=== PATIENT | male | born 1950 | race Caucasian/White ===

== ENCOUNTER 2024-08-05 10:15 | Outpatient (CLI) | payer OTHER, SELFPAY ==
[2024-08-05 10:45] LABS: Add Urine Microscopic? NO; Appearance Urine Clear (Clear); Bilirubin Urine Negative (Negative); Blood Urine Negative (Negative); Color Urine Yellow (Yellow); Glucose Urine UA Negative (Negative); Ketones Urine Negative (Negative); Leukocyte Esterase Ur Negative LEU/UL (Negative); Nitrate Urine Negative (Negative); Protein Urine Negative (Negative); Specific Grav Ur 1.021 (1.001-1.035); pH Urine 7.5 (5.0-9.0)
[2024-08-05 10:56] LABS: Alanine Aminotransferase 19 U/L (6-50); Alkaline Phosphatase 70 U/L (38-126); Anion Gap 3 mmol/L (4-12); Aspartate Amino Transferase 25 U/L (17-59); Blood Urea Nitrogen 17 mg/dL (9-20); Calcium 9.1 mg/dL (8.4-10.2); Carbon Dioxide 35 mmol/L (22-30); Chloride 102 mmol/L (98-107); Cholesterol 218 mg/dL (0-200); Estimated Glomerular Filt Rate > 60; Glucose 99 mg/dL (65-110); HDL Direct 52 mg/dL; Potassium 4.1 mmol/L (3.4-5.0); Sodium 140 mmol/L (137-145); Triglycerides 277 mg/dL (<150)
[2024-08-05 11:07] LABS: LDL Cholesterol Direct 106 mg/dL
--- OUTSIDE RECORDS SUMMARY | 2024-08-05 11:35 | XMS_ITS | Encounter Summary ---
Author Organization [facility] Address [address] [facility] [place] [address] Care Team Providers Care Jack Setter Name Role Phone Unavailable Primary Care Provider Unavailabl e Encounter Details Date Type Department Care Team (Late st Contact Info) Description 06/20/2023 Lab Requisition [facility] - DermPath Lab [address] [place] [id number] Ayden Bright MD [facility] DERMATOLOGY [address] [place] [phone] Neoplasm of uncertain behavior of skin Social History Tobacco Use Types Packs/Day Years Used Date Smoking Tobacco: Never Assessed Sex and Gender Information Value Date Recorded Sex Assigned at Not on file Legal Sex Male 9:20 AM CDT Gender Identity Not on file Sexual Orientation Not on file documented as of this encounter Plan of Treatment Not on file documented as of this encounter Procedures Procedure Name Priority Date/Time Associated Diagnosis Comments DERMATOPATHOLOGY Routine 06/20/2023 12:0 0 AM EMBLEM MAKER Neoplasm of uncertain behavior of skin documented in this encounter Results * DERMATOPATHOLOGY (06/20/2023 12:00 AM EMBLEM MAKER) Case Report Dermatopathology Report Case: [id number] Authorizing Provider: Ayden Bright MD Collected: 06/20/2023 12:00 AM Ordering Location: [facility] Physician [facility] - Received: 06/21/2023 12:14 PM DermPath Lab Pathologist: Princess Reyes MD Specimen: Skin, right thigh 4 3:41 PM CDT DERMATOPATHOLOGY LABORATORY Final Diagnosis Specimen A. SKIN, right thigh: HYPERKERATOSIS, PAPILLOMATOSIS, ACANTHOSIS, AND HYPERGRANULOSIS; SUPERFICIAL PORTIONS OF (B07.8) (see microscopic description and comment) 3:41 PM T DERMATOPATHOLOGY LABORATORY Clinical History Seborrheic Keratosis vs Squamous Cell Carcinoma 3:41 PM T DERMATOPATHOLOGY LABORATORY Gross Description Specimen A: Received is one formalin filled container labeled with the patient's name and designated right thigh. The specimen consists of a shave biopsy measuring 7x5x2 mm. Jar 0. 3:41 PM T DERMATOPATHOLOGY LABORATORY Microscopic Description Specimen A. SKIN, right thigh: Sections are predominantly composed of hyperkeratosis with focal parakeratosis, and superficial portions of epidermis with papillomatosis and hypergranulosis. The lesion is broadly transected at the level of the epidermis. Additional deeper sections were obtained and reviewed. COMMENT: The overall histologic features are consistent with superficial portions of a benign verrucous keratosis; however, given the superficial nature of the biopsy specimen, a deeper process cannot be excluded. As this lesion is broadly present at the margins of the specimen, clinicopathological correlation is recommended as to the nature of the remaining lesion. 3:41 PM T DERMATOPATHOLOGY LABORATORY Disclaimer An external and internal positive and negative controls are appropriate for the histochemical, immunohistochemical and immunofluorescence stain(s) in this case (if any), except where stated explicitly. The performance characteristics of the stain(s) cited in this report were developed and its performance characteristic determined by the Dermatopathology Laboratory at [facility], directed by Dr. Kike Oswald. These tests need not be, and therefore are not, approved by the [place] Food and Drug Administration. The tests are used for clinical purposes. Billing Codes Specimen Charges Stain Charges 84671 1 3:41 PM CDT DERMATOPATHOLOGY LABORATORY Embedded Images 3:41 PM T DERMATOPATHOLOGY LABORATORY Pathology/Cytolog y TISSUE SPECIMEN FROM SKIN / Unknown 06/20/2023 06/21/2023 12:14 PM EMBLEM MAKER Ayden Bright MD LAB - PATHOLOGY/CYTOLOGY ORDLaila AVENDAÑO Final Result DERMATOPATHOLOGY LABORATORY [facility] - Department of Dermatology [facility] Medicine [address] [place] [address], [address] [phone] documented in this encounter Visit Diagnoses Diagnosis Neoplasm of uncertain behavior of skin documented in this encounter
--- OUTSIDE RECORDS SUMMARY | 2024-08-05 11:35 | XMS_ITS | Encounter Summary ---
Author Organization [facility] Address [address] [place] [address] Care Team Providers Care Architect Naval Name Role Phone Bernard Jackman MD Primary Care Provid er Reason for Referral * Diagnostic Imaging (Routine) - Closed Specialty Diagnoses / Procedures Referred By Vanesa t Referred To Contact Diagnoses Chronic cough Dysphagia, oropharyngeal phase Procedures FL Upper GI Series, Single Contrast Alex Hernandez MD [address] [facility] [address] [place] [address] Phone: tel: fax: [address] [phone] Referral ID Status Reason Start Date Expiration Date Visits Re quested Visits Authorized [id number] Closed 08/03/2024 09/02/2025 1 1 Reason for Visit * Diagnostic Imaging (Routine) - Closed Specialty Diagnoses / Procedures Referred By Contconnor t Referred To Contact Diagnoses Chronic cough Dysphagia, oropharyngeal phase Procedures FL Upper GI Series, Single Contrast Alex Hernandez MD [address] [facility] [address] [place] [address] Phone: tel: fax: [address] [phone] Referral ID Status Reason Start Date Expiration Date Visits Re quested Visits Authorized [id number] Closed 08/03/2024 09/02/2025 1 1 Encounter Details Date Type Department Care Team (Latest Contact Info) Description 08/05/2024 8:31 AM CDT Hospital Encounter [facility] Diagnostic Imaging [address] [place] [id number] Chronic cough; Dysphagia, oropharyngeal phase Social History Tobacco Use Types Packs/Day Years Used Date Smoking Tobacco: Never Smokeless Tobacco: Never Alcohol Use Standard Drinks/Week Comments Yes 0 (1 standard drink = 0.6 oz pur e alcohol) SOCIAL AUDIT-C Answer Date Recorded Q1: How often do you have a drink containing alcohol? 4 or more times a week 05/18/2022 Q2: How many drinks containi ng alcohol do you have on a typical day when you are drinking? 1 or 2 Q3: How often do you have si x or more drinks on one occasion? Never 05/18/2022 PHQ-2 Answer Date Recorded PHQ-2 Total Score (If total score is 3 or more points, staff should administer the PHQ-9) 0 03/31/2024 Personal Safety Answer Date Recorded Have you ever been in or are you currently in a harmful physical or emotional relationship or is someone making you feel afraid or unsafe? Denies 10/02/2022 Sex and Gender Information Value Date Recorded Sex Assigned at Not on file Legal Sex Male 5:55 AM ARCHITECTURE DEPARTMENT CHAIR Gender Identity Male 02/18/2022 7:25 PM ARCHITECTURE DEPARTMENT CHAIR Sexual Orientation Not on file documented as of this encounter Plan of Treatment Not on file documented as of this encounter Procedures Procedure Name Priority Date/Time Associated Diagnosis Comments FL UPPER GI SERIES, SINGLE CONTRAST Schedule Routine, Read Routine (OP Routine) 08/05/2024 9:24 AM CDT Chronic cough Dysphagia, oropharyngeal phase documented in this encounter Results * FL Upper GI Series, Single Contrast (08/05/2024 9:24 AM CDT) Anatomical Region Laterality Modality Body N/A Computed Radiogr aphy, Computed Radiography 08/05/2024 9:39 AM CDT Narrative 08/05/2024 9:48 AM CDT EXAM DESCRIPTION: FLUOROSCOPIC ESOPHAGRAM, DOUBLE CONTRAST REASON FOR STUDY: Patient provides history of chronic cough since episode of pneumonia as a teenager (and maintained on reflux medications). Patient reports upper endoscopy approximately 10 years ago with demonstration of Schatzki's ring and remote history of prosthetic aortic valve replacement. COMPARISON: Relevant portions of two-view chest radiograph 03/31/2024; relevant portions of CT chest with contrast 02/26/2023; relevant portions of CT head without contrast 10/02/2022; relevant portions of ultrasound thyroid 04/11/2021. RADIATION DOSE: Dose: 7223.46 uGym2 Dose Area Product (DAP) TECHNIQUE: Patient ingested effervescent granules followed by thick and thin barium. FINDINGS: 12.5 mm Barium Tablet: No significant delay in transit. ESOPHAGEAL MOTILITY: Variable delay in contrast transit of the distal esophagus with distal esophageal tertiary spasm and distal esophageal intraesophageal reflux. Additionally, multiple episodes of robust flash intraesophageal reflux of the mid-upper esophagus in upright position. Variable retention of contrast media with variable intraesophageal reflux in supine position. ESOPHAGEAL MUCOSA: Fluoroscopically unremarkable to include no demonstration of ulceration or intrinsic or extrinsic masses. No fluoroscopic demonstration of gastroesophageal reflux. GASTRO-ESOPHAGEAL JUNCTION: Small sliding hiatal hernia with Schatzki B ring within 13-20 mm luminal diameter range. STOMACH: Visualized portion grossly unremarkable. NON-GI TRACT STRUCTURES: Postsurgical changes pursuant to prosthetic aortic valve replacement. OTHER: No other significant finding. IMPRESSION: 1. Small sliding hiatal hernia with Schatzki B ring within 13-20 mm luminal diameter range. 2. Variable delay in contrast transit of the distal esophagus with distal esophageal tertiary spasm and distal esophageal intraesophageal reflux. 3. Additionally, multiple episodes of robust flash intraesophageal reflux of the mid-upper esophagus in upright position. 4. Variable retention of contrast media with variable intraesophageal reflux in supine position. THIS IS AN ELECTRONICALLY VERIFIED FINAL REPORT 08/05/2024 9:48 AM - Electronically signed by Christofer Hauser M.D. LORA: LORA Report ID: [id number] Reading Location: [id number] Procedure Note Christofer Hauser MD - 08/05/2024 EXAM DESCRIPTION: FLUOROSCOPIC ESOPHAGRAM, DOUBLE CONTRAST REASON FOR STUDY: Patient provides history of chronic cough sinceepisode of pneumonia as a teenager (and maintained on reflux medications). Patient reports upper endoscopy approximately 10 years ago with demonstration of Schatzki's ring and remote history of prosthetic aortic valve replacement. COMPARISON: Relevant portions of two-view chest radiograph 03/31/2024; relevant portions of CT chest with contrast 02/26/2023; relevant portionsof CT head without contrast 10/02/2022; relevant portions of ultrasoundthyroid 04/11/2021. RADIATION DOSE: Dose: 7223.46 uGym2 Dose Area Product (DAP) TECHNIQUE: Patient ingested effervescent granules followed by thick andthin barium. FINDINGS: 12.5 mm Barium Tablet: No significant delay in transit. ESOPHAGEAL MOTILITY: Variable delay in contrast transit of the distal esophagus with distal esophageal tertiary spasm and distal esophageal intraesophageal reflux. Additionally, multiple episodes of robust flash intraesophageal reflux of the mid-upper esophagus in upright position. Variable retention of contrast media with variable intraesophageal refluxin supine position. ESOPHAGEAL MUCOSA: Fluoroscopically unremarkable to include nodemonstration of ulceration or intrinsic or extrinsic masses. No fluoroscopicdemonstration of gastroesophageal reflux. GASTRO-ESOPHAGEAL JUNCTION: Small sliding hiatal hernia with Schatzki Bring within 13-20 mm luminal diameter range. STOMACH: Visualized portion grossly unremarkable. NON-GI TRACT STRUCTURES: Postsurgical changes pursuant to prostheticaortic valve replacement. OTHER: No other significant finding. IMPRESSION: 1. Small sliding hiatal hernia with Schatzki B ring within 13-20 mmluminal diameter range. 2. Variable delay in contrast transit of the distal esophagus withdistal esophageal tertiary spasm and distal esophageal intraesophageal reflux. 3. Additionally, multiple episodes of robust flash intraesophagealreflux of the mid-upper esophagus in upright position. 4. Variable retention of contrast media with variable intraesophagealreflux in supine position. THIS IS AN ELECTRONICALLY VERIFIED FINAL REPORT 08/05/2024 9:48 AM - Electronically signed by Christofer Hauser M.D. LORA: LORA Report ID: [id number] Reading Location: [id number] Alex Hernandez MD IMG FLUOROSCOPY PROCEDURES Fi nal Result documented in this encounter Visit Diagnoses Diagnosis Chronic cough Cough Dysphagia, oropharyngeal phase documented in this encounter Administered Medications Inactive Administered Medications - up to 3 most recent administrations Medication Order MAR Action Action Date Dose Rate Site barium sulfate (E-Z DISK) 700 mg tablet 700 mg 700 mg, oral, Once in imaging, contrast, Starting on Sat08/05/24 at 0917, For 1 dose Contrast Given 08/05/2024 9:22 AM CDT 700 mg barium sulfate (E-Z-HD) 98 % suspension 50 mL 50 mL, oral, Once in imaging, contrast, Starting on Sat08/05/24 at 0916, For 1 dose Contrast Given 08/05/2024 9:22 AM CDT 50 mL barium sulfate (E-Z-PAQUE) 96 % (w/w) suspension 1 Bottle 1 Bottle, oral, Once in imaging, contrast, Starting on Sat08/05/24 at 0917, For 1 dose Contrast Given 08/05/2024 9:22 AM CDT 1 Bottle sod bicarbonate-citric acid-simethicone (E-Z GAS) (EZ-GAS II) effervescent granules 1 packet 1 packet, oral, Once in imaging, contrast, Starting on Sat08/05/24 at 0917, For 1 dose Given 08/05/2024 9:21 AM CDT 1 packet documented in this encounter Care Teams Architect Naval Relationship Specialty Start Date End Date Bernard Jackman MD [address] [place] [id number] PCP - General 12/06/18 documented as of this encounter
--- OUTSIDE RECORDS SUMMARY | 2024-08-05 11:35 | XMS_ITS | Encounter Summary ---
Author Organization [facility] Address [address] [facility] [place] [address] Care Team Providers Care Police Detention Attendant Name Role Phone Unavailable Primary Care Provider Unavailabl e Encounter Details Date Type Department Care Team (Late st Contact Info) Description 10/09/2019 Lab Requisition [facility] DermPath Lab [address] [facility] [place] [address] Skylar Wright DO [address] [facility] [address] [place] [address] Social History Tobacco Use Types Packs/Day Years [...] Priority Date/Time Associated Diagnosis Comments DERMATOPATHOLOGY Routine 10/08/2019 12:0 0 AM CDT documented in this encounter Results * DERMATOPATHOLOGY (10/08/2019 12:00 AM CDT) Case Report Dermatopathology Report Case: [id number] Authorizing Provider: Skylar Wright DO Collected: 10/08/2019 12:00 AM Ordering Location: [facility] DermPath Lab Received: 10/09/2019 09:26 AM Pathologist: Kenia Salguero MD Specimens: A) - Skin, left anterior LE B) - Skin, back 0 5:50 PM CDT DERMATOPATHOLOGY LABORATORY Final Diagnosis Specimen A. SKIN, left anterior LE: LICHEN PLANUS-LIKE KERATOSIS (BENIGN LICHENOID KERATOSIS) (L82.1) Specimen B. 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 The specimen consists of a shave biopsy measuring 7x6x1 mm. Jar 0. Specimen B: Received is one formalin filled container labeled with the patient's name and designated back. The specimen consists of a shave biopsy measuring 00n93m5 mm. Jar 0. 0 5:50 PM CDT DERMATOPATHOLOGY LABORATORY Microscopic Description Specimen A. SKIN, left anterior LE: The epidermis is mildly acanthotic. There is a lichenoid infiltrate with vacuolar changes of basilar keratinocytes and scattered necrotic keratinocytes. Specimen B. SKIN, back: Sections show compact orthokeratosis with acanthosis composed of slightly larger keratinocytes with basal layer hyperpigmentation. The epidermis is mildly acanthotic. There is a lichenoid infiltrate with vacuolar changes of basilar keratinocytes and scattered necrotic keratinocytes. 0 5:50 PM CDT DERMATOPATHOLOGY LABORATORY Disclaimer An external and internal positive and negative controls are appropriate for the histochemical, immunohistochemical and immunofluorescence stain(s) in this case (if any), except where stated explicitly. The performance characteristics of the stain(s) cited in this report were developed and its performance characteristic determined by the Dermatopathology Laboratory at [facility], directed by Dr. Kike Oswald. These tests need not be, and therefore are not, approved by the [place] Food and Drug Administration. The tests are used for clinical purposes. Billing Codes Specimen Charges Stain Charges 53088 63957 1 1 0 5:50 PM CDT DERMATOPATHOLOGY LABORATORY Embedded Images 0 5:50 PM CDT DERMATOPATHOLOGY LABORATORY Pathology/Cytology TISSUE SPECIMEN FROM SKIN / Unknown 10/08/2019 10/09/2019 9:26 AM CDT Miscellaneous samples (specimen) TISSUE SPECIMEN FROM SKIN / Unknown 10/08/2019 10/09/2019 9:26 AM CDT us Skylar Wright DO LAB - PATHOLOGY/CYTOLOGY ORDERABLES Final Result DERMATOPATHOLOGY LABORATORY [facility] - Department of Dermatology [facility] [address] [place] [address] documented in this encounter Visit Diagnoses Not on filedocumented in this encounter
--- OUTSIDE RECORDS SUMMARY | 2024-08-05 11:35 | XMS_ITS | Encounter Summary ---
Author Organization [facility] Care Team Providers Care Pharmacist Aide Name Role Phone Miscellaneous, Not In File Primary Care Provider Unavailable Unknown, Notinfile Primary Care Provider Unavail Bernard Choi MD Primary Care Provid er Unknown, Notinfile Primary Care Provider Unavail Bernard Choi MD Primary Care Provid er Bernard Jackman MD Primary Care Provid er Edyta Saleh LPN Unavailable [phone] Encounter Details Date Type Department Care Team (Latest Contact Info) Description 02/07/2017 Orders Only [facility] CLINCONV ProviderRyan MD [address] [place] [id number] Social History Tobacco Use Types Packs/Day Years Used Date Smoking Tobacco: Never Sex and Gender Information Value Date Recorded Sex Assigned at Not on file Legal Sex Male 5:55 AM BOTTLE FEEDER Gender Identity Male 02/18/2022 7:25 PM BOTTLE FEEDER Sexual Orientation Not on file documented as of this encounter Plan of Treatment Not on file documented as of this encounter Procedures Procedure Name Priority Date/Time Associated Diagnosis Comments PROCEDURE - RESULT 02/07/2017 12 :00 AM CDT SCAN - PATHOLOGY 02/07/2017 12:0 0 AM CDT documented in this encounter Results * PROCEDURE - RESULT (02/07/2017 12:00 AM CDT) Narrative 02/07/2017 12:00 AM CDT Ordered by an unspecified provider. Historical Provider Final Res ult * SCAN - PATHOLOGY (02/07/2017 12:00 AM CDT) Narrative 02/07/2017 12:00 AM CDT Ordered by an unspecified provider. Historical Provider Final Res ult documented in this encounter Visit Diagnoses Not on filedocumented in this encounter Additional Health Concerns Infection Onset Date Last Indicated Resolved Time COVID: Suspected 03/07/2021 03/07/2021 03/07/2021 9:43 AM BOTTLE FEEDER COVID: Suspected 03/07/2021 03/07/2021 03/07/2021 8:41 PM BOTTLE FEEDER COVID: Suspected 04/04/2023 04/04/2023 04/04/2023 6:43 PM BOTTLE FEEDER COVID: Suspected 04/04/2023 04/04/2023 04/04/2023 10:36 PM BOTTLE FEEDER documented as of this encounter Care Teams Pharmacist Aide Relationship Specialty Start Date End Date Miscellaneous, Not In File PCP - General 07/13/16 Unknown, Notinfile PCP - General 07/05/17 07/18/17 Bernard Jackman MD [address] [place], [place] [id number] PCP - General 07/19/17 07/19/17 Unknown, Notinfile PCP - General 07/20/17 07/23/17 Bernard Jackman MD [address] [place], [place] [id number] PCP - General 07/24/17 12/05/18 Bernard Jackman MD [address] [place], [place] [id number] PCP - General 12/06/18 Edyta Saleh, CENTRIFUGE SEPARATOR TENDER [address] [place] [address] Credit Administration Manager 07/20/20 07/20/20 documented as of this encounter
--- OUTSIDE RECORDS SUMMARY | 2024-08-05 11:35 | XMS_ITS | Encounter Summary ---
Author Organization [facility] Address [address] [place] [address] Care Team Providers Care Dog Bather Name Role Phone Unavailable Primary Care Provider Unavailabl e Encounter Details Date Type Department Care Team (Late st Contact Info) Description 12/20/2022 Lab Requisition [facility] - DermPath Lab [address] [place] [address] Shyla Uribe PA-C [address] [place] [address] Neoplasm of uncertain behavior of skin [...] Priority Date/Time Associated Diagnosis Comments DERMATOPATHOLOGY Routine 12/20/2022 12:0 0 AM CDT Neoplasm of uncertain behavior of skin documented in this encounter Results * DERMATOPATHOLOGY (12/20/2022 12:00 AM CDT) Case Report Dermatopathology Report Case: [id number] Authorizing Provider: Shyla Uribe PA-C Collected: 12/20/2022 12:00 AM Ordering Location: [facility] DermPath Lab Received: 12/24/2022 08:01 AM Pathologist: Princess Reyes MD Specimens: A) - Skin, right chest B) - Skin, left foot 4:12 PM CDT DERMATOPATHOLOGY LABORATORY Final Diagnosis Specimen A. 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 SKIN, left foot: COMPOUND MELANOCYTIC NEVUS, OF ACRAL SKIN (D22.72) (see microscopic description and comment) 3 4:12 PM [facility] DERMATOPATHOLOGY LABORATORY Clinical History A: Basal Cell Carcinoma B: Atypical Nevus 3 4:12 PM [facility] DERMATOPATHOLOGY LABORATORY Gross Description Specimen A: Received is one formalin filled container labeled with the patient's name and designated right chest. The specimen consists of a shave biopsy measuring 8x9x1 mm. Jar 0. Specimen B: Received is one formalin filled container labeled with the patient's name and designated left foot. The specimen consists of a shave biopsy measuring 7x5x2 mm. Jar 0. 3 4:12 PM [facility] DERMATOPATHOLOGY LABORATORY Microscopic Description Specimen A. SKIN, right chest: There is acanthosis of the epidermis consisting of uniform cells with pale cytoplasm, a diminished granular layer and overlying parakeratosis with neutrophils. Specimen B. SKIN, left foot: Sections show acral type skin with collections of melanocytes at the dermal-epidermal junction that are forming fairly well-defined th ques. Melanocytes are also present in the upper dermis. Lesional cells are highlighted by MART-1/MelanA immunostain. This lesion is present at the margin of the specimen. COMMENT: If this specimen is sampled from a larger lesion, these findings may not be order entry representative of the entire lesion. Clinicopathologic correlation is recommended. 3 4:12 PM [facility] DERMATOPATHOLOGY LABORATORY Disclaimer An external and internal positive and negative controls are appropriate for the histochemical, immunohistochemical and immunofluorescence stain(s) in this case (if any), except where stated explicitly. The performance characteristics of the stain(s) cited in this report were developed and its performance characteristic determined by the Dermatopathology Laboratory at [facility], directed by Dr. Kike Oswald. These tests need not be, and therefore are not, approved by the [place] Food and Drug Administration. The tests are used for clinical purposes. Billing Codes Specimen Charges Stain Charges 34984 14191 1 1 34552 1 3 4:12 PM T DERMATOPATHOLOGY LABORATORY Embedded Images 4:12 PM CDT DERMATOPATHOLOGY LABORATORY Pathology/Cytology TISSUE SPECIMEN FROM SKIN / Unknown 12/20/2022 12/24/2022 8:01 AM CDT Miscellaneous samples (specimen) TISSUE SPECIMEN FROM SKIN / Unknown 12/20/2022 12/24/2022 8:01 AM CDT Shyla Uribe PA-C LAB - PATHOLOGY/CYTOLOGY ORDE JAROCHO Final Result DERMATOPATHOLOGY LABORATORY [facility] - Department of Dermatology [facility] [address] [place] [address], [address] [phone] documented in this encounter Visit Diagnoses Diagnosis Neoplasm of uncertain behavior of skin documented in this encounter
--- OUTSIDE RECORDS SUMMARY | 2024-08-05 11:35 | XMS_ITS | Clinical Summary ---
Author Organization [facility] Address [address] [place] [address] Care Team Providers Care Surgeon Chief Name Role Phone Bernard Jackman MD Primary Care Provid er Allergies Active Allergy Reactions Criticality Noted Date Comments Lisinopril Cough High 07/18/2020 cough Medications folic acid/multivit-m in/lutein (CENTRUM SILVER ORAL) Take 1 tablet by mouth every morning Active cholecalciferol , vitamin D3, (VITAMIN D3 ORAL) Take 2 tablets by mouth every morning Active famotidine (PEPCID) 20 mg tabletIndicatio ns:Laryngophary ngeal reflux (LPR) Take 1 tablet (20 mg total) by mouth nightly 90 tablet 1 3 Active hyoscyamine (Oscimin SL) 0.125 mg SL tablet Take 1 tablet (0.125 mg total) by mouth every 6 (six) hours as needed for cramping 160 tablet 3 3 Active cetirizine (ZyrTEC) 10 mg tabletIndicatio ns:Seasonal allergic rhinitis due to pollen TAKE 1 TABLET EVERY MORNING 90 tablet [address] (PROTONIX) 40 mg EC tabletIndicatio ns:Laryngophary ngeal reflux (LPR) Take 1 tablet (40 mg total) by mouth 2 (two) times a day before breakfast and dinner 180 tablet 1 4 Active rOPINIRole (REQUIP) 1 mg tabletIndicatio ns:PLMD (periodic limb movement disorder) Take 1 tablet (1 mg total) by mouth nightly 90 tablet 2 4 Active simvastatin (ZOCOR) 20 mg tablet Take 1 tablet (20 mg total) by mouth daily 90 tablet 3 4 Active carvediloL (Coreg) 12.5 mg tablet Take 1 tablet (12.5 mg total) by mouth 2 (two) times a day 180 tablet 3 4 Active mv-mn/lutein/ze ax/bilber/hb277 (MACULAR HEALTH FORMULA ORAL) Take by mouth Ac tive benzonatate (TESSALON) 100 mg capsuleIndicati ons:Cough Take 1 capsule (100 mg total) by mouth 3 (three) times a day as needed for cough 42 capsule 4 Active methylPREDNISol one (MEDROL DOSEPACK) 4 mg DosepackIndicat ions:Chronic cough Take as directed on package. 21 tablet 4 Active fluticasone propionate (FLONASE) 50 mcg/actuation nasal sprayIndication s:Chronic cough Administer 2 sprays into each nostril daily 1 each 4 Active FLUoxetine (PROzac) 20 mg tablet Take 1 tablet (20 mg total) by mouth daily 90 tablet 3 4 Active losartan (COZAAR) 25 mg tablet Take 1 tablet (25 mg total) by mouth daily 90 tablet 3 5 Active tadalafiL (CIALIS) 20 mg tablet Take 1 tablet (20 mg total) by mouth daily as needed for erectile dysfunction 12 tablet 11 5 05/21/19 26 Active Active Problems Problem Noted Date Diagnosed Date Bicuspid aortic valve 02/25/2024 Arthralgia of shoulder 04/18/2023 Esophageal reflux 04/18/2023 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 Terrell. Patient instructed to have PSA drawn approximately 6 weeks post-op. Order for PSA placed. He was instructed to get this drawn a few days before his 6 week f/u with Dr. Terrell. Patient took prophylactic antibiotic prior to today's appointment Assessment: Urine appears dark red and patient c/o fatigue and weakness. Contacted Dr. Terrell to report these findings. He suggested flushing catheter and if urine clears up, can remove browne. Used approximate 500mL to irrigate bladder. Urine turned light pink and no clots noted. Browne catheter was removed. CBC was ordered to assess hgb. Patient denies SOB, chest pain, leg pain Incision(s): clean, dry, no redness or swelling and edges approximate Catheter removed, balloon intact No complications Instructions: Activity restrictions and kegel exercises reviewed, pt to schedule an appt with the surgeon approx 6 weeks post op and pt to call with fever, pain, or if unable to urinate within 6 hours Penile rehab information discussed with the patient He was given a script for Cialis 5mg, per our policy. He denies being on any nitrate containing medications All questions from patient and answered. Dr. Terrell and KEDAR Cardenas contacted via [employer] to scheduled post op follow up appointment. PLMD (periodic limb movement disorder) Assessment & Plan (05/25/2024 8:47 AM ELECTRICAL PROSPECTING SUPERVISOR): Patient will continue with Requip 1 mg p.o. at bedtime. Assessment & Plan (04/25/2023 11:28 AM ELECTRICAL PROSPECTING SUPERVISOR): PLMS are under control with Requip 1 mg at bedtime. Assessment & Plan (04/19/2022 12:03 PM ELECTRICAL PROSPECTING SUPERVISOR): Patient will continue with Requip 1 mg p.o. at bedtime. Assessment & Plan (02/19/2022 12:50 PM ELECTRICAL PROSPECTING SUPERVISOR): Patient will continue with Requip 1 mg p.o. at bedtime. Assessment & Plan (08/07/2021 9:58 AM CDT): Patient will continue with Requip 1 mg p.o. at bedtime. I have reordered the medication Assessment & Plan (08/01/2020 11:27 AM CDT): The patient will continue with Requip 1 mg p.o. at bedtime to treat periodic limb movement disorder. The patient denied need for prescription at this time. He states that this medication regimen is working well. Malignant neoplasm of prostate 07/26/2020 Prostate cancer (RALP 07/18/20) 06/20/2020 Elevated PSA 05/24/2020 S/P ascending aortic aneurysm repair 07/18/2018 Hypertension 07/13/2016 History of aortic valve replacement 07/01/2015 Surgical follow-up care 04/13/2014 Obstructive sleep apnea syndrome 10/10/2012 Assessment & Plan (05/25/2024 8:47 AM ELECTRICAL PROSPECTING SUPERVISOR): Patient will continue with CPAP therapy at 6-20 cm water pressure. I have sent an order for the patient to receive the correct hose. The patient does have a Angelia machine a not a ResMed. Patient's DME is [employer]. Assessment & Plan (04/25/2023 11:28 AM ELECTRICAL PROSPECTING SUPERVISOR): The patient continues to benefit from the auto titrating CPAP unit with a range of 6-20 cm water pressure for ongoing symptoms of DELFINA. His DME supplier is [employer]. He will follow up here in 1 year. Assessment & Plan (04/19/2022 12:03 PM ELECTRICAL PROSPECTING SUPERVISOR): Patient will continue with CPAP therapy at 6-20 cm water pressure. Patient's DME is [employer]. Assessment & Plan (02/19/2022 12:51 PM ELECTRICAL PROSPECTING SUPERVISOR): Patient will continue with CPAP therapy at 12 cm water pressure. Patient's DME is [employer]. Assessment & Plan (2021 11:11 AM CDT): Patient will continue with CPAP therapy at 7 cm water pressure. Patient has a CPAP machine registered for the recall. I have also ordered the patient a nocturnal polysomnogram to recertify for CPAP therapy. Patient is agreeable. Assessment & Plan (08/07/2021 9:58 AM CDT): Patient will continue with CPAP therapy at 7 cm water pressure. Patient denied need for supplies. I have ordered the patient a new CPAP machine set at 7 cm water pressure with heated humidity and a full set of supplies. [employer]. The patient and I also discussed the possible need for a nocturnal polysomnogram to recertify for CPAP therapy due to insurance requirements. Patient is agreeable if it is required by insurance. Patient also has a CPAP machine has been registered on the recall list. Patient was reminded to examine CPAP machine prior to use for debris. Assessment & Plan (08/01/2020 11:27 AM CDT): The patient will continue with CPAP therapy at 7 cm water pressure to treat obstructive sleep apnea. The patient did receive an order for new supplies. The DME company is [employer]. The patient is benefitting from CPAP therapy. Hyperlipidemia 10/10/2012 Aortic valve stenosis 04/18/2012 Cough 12/05/2011 Left ventricular hypertrophy 10/16/2011 Resolved Problems Problem Noted Date Diagnosed Date Resolved Date Undiagnosed cardiac murmurs 04/18/2023 02/25/2024 Impacted cerumen, right ear [H61.21 (ICD-10-CM)] 08/28/2022 08/28/2022 Encounters Date Type Department Care Team Description 08/05/2024 8:31 AM CDT Hospital Encounter [facility] Diagnostic Imaging [address] [place] [address] Chronic cough; Dysphagia, oropharyngeal phase 07/31/2024 12:00 PM CDT Lab [facility] Lab [address] [place] [address] 05/26/2024 9:20 AM ELECTRICAL PROSPECTING SUPERVISOR Office Visit [facility] [address] [place] [address] Jose Mayfield MD Prostate cancer (HCC) (Primary Dx); Erectile dysfunction, unspecified erectile dysfunction type 05/25/2024 8:00 AM ELECTRICAL PROSPECTING SUPERVISOR Office Visit [facility] [place] [address] [place] [address] Sun Mann NP Obstructive sleep apnea syndrome (Primary Dx); PLMD (periodic limb movement disorder) 05/25/2024 Telephone [facility] [address] [place] [address] Yefri Ribera MD Orders Only 05/21/2024 1:05 PM ELECTRICAL PROSPECTING SUPERVISOR Lab [facility] [address] [place] [address] Prostate cancer (HCC) 05/15/2024 Orders Only [facility] [address] [place] [address] Jose Mayfield MD Prostate cancer (HCC) (Primary Dx) from Last 3 Months Immunizations Immunization Administration Dates Next Due Influenza, Quad, Adjuvantate d, Intramuscular 02/08/2023,02/09/2021 Influenza, Quadrivalent, Hig h Dose, Preservative Free, Intrr 02/02/2022,02/02/2020 Influenza, Trivalent, High D ose, Split, Preservative Free, Intramuscular 02/07/2024 Influenza, Trivalent, IM (MDV) 01/14/2020,2015,01/17/2015 Influenza, Unspecified 01/13/2021 Moderna SARS-CoV-2 Monovalen t Vaccination (12+ YRS) 06/22/2020,05/23/2020 Pneumococcal Conjugate Pcv20 10/05/2022 ZOSTER Recombinant 08/06/2022,05/11/2022 Surgical History Surgery Date Site/Laterality Comments CARDIAC SURGERY 04/15/2013 - 04/14/2014 aorotic valve VASECTOMY APPENDECTOMY COLONOSCOPY HERNIA REPAIR Left inguinal PROSTATECTOMY CARDIAC VALVE REPLACEMENT Feb 2014 Medical History Medical History Date Comments Heart murmur Inguinal hernia Hypertension Hyperlipidemia GERD (gastroesophageal reflux disease) Sleep apnea uses CPAP Irritable bowel syndrome mild Pulmonary embolism (HCC) 01/2021 Heart disease 2012 Cancer (HCC) Nosebleed Family History Medical History Relation Name Comments Non-Hodgkin's Lymphoma Father Famil y history of non-Hodgkin's lymphoma - (Added by TW Conv) Breast cancer Father's Sister Family hist ory of breast cancer - (Added by TW Conv) Hyperlipidemia Mother Family histor y of hyperlipidemia - (Added by Conv)/Family history of hyperlipidemia - (Added by Conv) Lung cancer Mother's Brother 1 Family hi story of lung cancer - (Added by TW Conv) Melanoma Mother's Brother 2 Family hi story of melanoma - (Added by TW Conv) Non-Hodgkin's Lymphoma Paternal Grandfather Family history of non-Hodgkin's lymphoma - (Added by TW Conv) Anesthesia problems Neg Hx Relation Name Status Comments Father Father's Sister Mother Mother's Brother 1 Mother's Brother 2 Paternal Grandfather Social History Tobacco Use Types Packs/Day Years Used Date Smoking Tobacco: Never Smokeless Tobacco: Never Tobacco Cessation:Counseling Given: Not Answered Alcohol Use Standard Drinks/Week Comments Yes 0 [...] on file Legal Sex Male 5:55 AM ELECTRICAL PROSPECTING SUPERVISOR Gender Identity Male 02/18/2022 7:25 PM ELECTRICAL PROSPECTING SUPERVISOR Sexual Orientation Not on file Obstetrics History Last Filed Vital Signs Vital Sign Reading Time Taken Comments Blood Pressure 114/64 05/25/2024 7:56 AM ELECTRICAL PROSPECTING SUPERVISOR Pulse 64 05/25/2024 7:56 AM ELECTRICAL PROSPECTING SUPERVISOR Temperature 36.9 C (98.4 F) 05/25/2024 7:56 AM ELECTRICAL PROSPECTING SUPERVISOR Respiratory Rate 18 05/25/2024 7:56 AM ELECTRICAL PROSPECTING SUPERVISOR Oxygen Saturation 92% 05/25/2024 7:56 AM ELECTRICAL PROSPECTING SUPERVISOR Inhaled Oxygen Concentration - - Weight 109.8 kg (242 lb) 05/26/2024 9:19 AM ELECTRICAL PROSPECTING SUPERVISOR Height 177.8 cm (5' 10 ) 05/26/2024 9:19 AM ELECTRICAL PROSPECTING SUPERVISOR Body Mass Index 34.72 05/26/2024 9:19 AM ELECTRICAL PROSPECTING SUPERVISOR Plan of Treatment Health Maintenance Due Date Last Done Comments Hepatitis B Screening 1968 DTaP/Tdap/Td Vaccine (2 - Td or Tdap) 03/04/2022 03/04/2012, 07/28/1999 Covid-19 Vaccine (2023-2 5 season) 2023 02/08/2023, 02/09/2021, 06/22/2020, Additional history exists Well Visit 65+ 04/01/2024 04/01/2023, 03/15, 03/30/2022, Additional history exists Depression Screening 03/31/2025 03/31/2024, 04/01/2023, 04/01/2023, Additional history exists Fall Risk Assessment 03/31/2025 03/31/2024, 04/01/2023, 03/30/2022, Additional history exists Colon Cancer Screening-Colonoscopy 11/28/2025 11/28/2020, 07/12/2015 Colon Cancer Screening-CT Colonography Discontinued 11/28/2020, 07/12/2015 Colon Cancer Screening-DNA Stool Discontinued 11/29/19, 07/12/2015 Colon Cancer Screening-FIT Discontinued 11/28/2020, Colon Cancer Screening-Sigmoidoscopy Discontinued 11/28/2020, 07/12/2015 Hepatitis C Screening Completed 05/18/2022 Zoster Vaccine Completed 08/06/2022, 04/16, 03/01/2011 Pneumococcal vaccine 65+ Completed 10/05/2022, 11/2018 Influenza Vaccine Completed 02/07/2024, , 02/02/2022, Additional history exists Prostate Cancer Screening-PSA Discontinued , 02/28/2024, 04/17/2023, Additional history exists Medical Devices Implanted Type Area Patient Case Coordinator Device Identifier Shelf Expiration Date Model / Serial / Lot Z80 [employer] Progrip [id number] Self Fixate Flat Sheet Mesh Surgical Marilyn Pet Latex Free [id number] - [id number] Implanted:Qty : 1 on 08/28/2021 by Jose Galloway MD at [facility] N/A: [employer]mb[employer] [id number] 05/15/2024 [id number] / / [id number] Explanted Type Area Patient Case Coordinator Device Identifier Shelf Expiration Date Model / Serial / Lot Medtronic Inc Progrip [id number] Self Fixate Flat Sheet Mesh Surgical Marilyn Pet Latex Free [id number] - [id number] Explanted:Qty : 1 on 08/28/2021 at [facility] N/A: Umbil[employer] [id number] 05/15/2024 [id number] / / [id number] Procedures Procedure Name Priority Date/Time Associated Diagnosis Comments FL UPPER GI SERIES, SINGLE CONTRAST Schedule Routine, Read Routine (OP Routine) 08/05/2024 9:24 AM CDT Chronic cough Dysphagia, oropharyngeal phase URINALYSIS, MICROSCOPIC ONLY Routine 07/31/2024 12:18 PM CDT DIFFERENTIAL AUTO Routine 07/31/2024 12: 18 PM CDT FOLATE Routine 07/31/2024 12:18 PM CDT VITAMIN B12 Routine 07/31/2024 12:18 PM CDT TSH Routine 07/31/2024 12:18 PM CDT HEMOGLOBIN A1C Routine 07/31/2024 12:18 PM CDT CBC WITH AUTO DIFFERENTIAL Routine 07/31/2024 12:18 PM CDT T4, FREE Routine 07/31/2024 12:18 PM CDT LIPID PANEL Routine 07/31/2024 12:18 PM CDT URINALYSIS AND REFLEX TO MICROSCOPIC AND CULTURE Routine 07/31/2024 12:18 PM CDT PSA DIAGNOSTIC Routine 05/21/2024 1:13 PM ELECTRICAL PROSPECTING SUPERVISOR Prostate cancer (HCC) HEPATITIS C ANTIBODY Routine 05/18/2022 9:29 AM ELECTRICAL PROSPECTING SUPERVISOR Encounter for screening for other viral diseases COLONOSCOPY Routine 11/28/2020 3:45 PM CDT from Last 3 Months or Most Recently Relevant to Health Maintenance Results * FL Upper GI Series, Single [...] Christofer Hauser M.D. LORA: LORA Report ID: [id number] Reading Location: [id number] Procedure Note Christofer Hauser MD - 08/05/2024 [...] Christofer Hauser M.D. LORA: LORA Report ID: [id number] Reading Location: [place] [address] Alex Hernandez MD IMG FLUOROSCOPY PROCEDURES Fi nal Result * Differential, auto (07/31/2024 12:18 PM CDT) Neutrophil abs 3.66 1.50 - 6.50 K/cumm Comment:Testing performed by : [address] [address] Imm gran abs 0.01 0.00 - 0.10 K/cumm JHONNY Comment:Testing performed by : [address] [address] Lymphocyte abs 1.39 0.80 - 3.30 K/cumm JHONNY Comment:Testing performed by : [address] [address] Monocyte abs 0.59 0.20 - 0.80 K/cumm JHONNY Comment:Testing performed by : [address] [address] Eosinophil abs 0.30 0.00 - 0.50 K/cumm JHONNY Comment:Testing performed by : [address] [address] Basophil abs 0.03 0.00 - 0.10 K/cumm JHONNY Comment:Testing performed by : [address] [address] Neutrophil pct 61.2 % [facility] Comment: Interpretive Data Percent cell count reference ranges are not reported, since discordance with absolute values may lead to misinterpretation of CBC data. Current Interpretive Data was last revised on 2017. Testing performed by: [address] [address] Imm gran pct 0.2 % [facility] Comment: Interpretive Data Percent cell count reference ranges are not reported, since discordance with absolute values may lead to misinterpretation of CBC data. Current Interpretive Data was last revised on 2017. Testing performed by: [address] [address] Lymphocyte pct 23.2 % [facility] Comment: Interpretive Data Percent cell count reference ranges are not reported, since discordance with absolute values may lead to misinterpretation of CBC data. Current Interpretive Data was last revised on 2017. Testing performed by: [address] [address] Monocyte pct 9.9 % [facility] Comment: Interpretive Data Percent cell count reference ranges are not reported, since discordance with absolute values may lead to misinterpretation of CBC data. Current Interpretive Data was last revised on 2017. Testing performed by: [address] [address] Eosinophil pct 5.0 % [facility] Comment: Interpretive Data Percent cell count reference ranges are not reported, since discordance with absolute values may lead to misinterpretation of CBC data. Current Interpretive Data was last revised on 2017. Testing performed by: [address] [address] Basophil pct 0.5 % [facility] Comment: Interpretive Data Percent cell count reference ranges are not reported, since discordance with absolute values may lead to misinterpretation of CBC data. Current Interpretive Data was last revised on 2017. Testing performed by: [address] [address] Blood 07/31/2024 12:1 8 PM CDT 07/31/2024 12:35 PM CDT us Alex Hernandez MD LAB BLOOD ORDERABLES Final Re sult JHONNY [address] [facility] Department [place] [address] * (ABNORMAL) Urinalysis reflex to microscopic and culture Urine (07/31/2024 12:18 PM CDT) Color, ur Yellow Yellow Comment:Testing performed by : [address] [address] Clarity, ur Clear Clear JHONNY Comment:Testing performed by : [address] [address] Specific gravity, ur 1.026 1.003 - 1.030 JHONNY Comment:Testing performed by : [address] [address] pH, urine 5.5 JHONNY Comment: Interpretive Data U rine pH is affected by diet, medications, systemic acid-base disturbances, and renal tubular function. pH may affect urinary stone formation. For example, urine pH below 6.0 may help reduce the tendency for calcium phosphate stones and pH greater than 6.0 may reduce the tendency for uric acid stone formation. Source: [facility] [employer] Current Interpretive Data was last revised on 2017 Testing performed by: [address] [address] Protein, ur ql Trace(A) Negative JHONNY Comment:Testing performed by : [address] [address] Glucose, ur ql Negative Negative JHONNY Comment:Testing performed by : [address] [address] Ketones, ur Trace(A) Negative JHONNY Comment:Testing performed by : [address] [address] Bilirubin, ur Negative Negative JHONNY Comment:Testing performed by : [address] [address] Blood, ur Negative Negative JHONNY Comment:Testing performed by : [address] [address] Urobilinogen, ur 2.0(A) <2.0 mg/dL JHONNY RODRIGUEZ Comment:Testing performed by : [address] [address] Nitrite, ur Negative Negative JHONNY RODRIGUEZ Comment:Testing performed by : [address] [address] Leukocyte esterase, ur Negative Negative JHONNY RODRIGUEZ Comment:Testing performed by : [address] [address] UA reflex comment Reflex to microscopic UA will be performed. JHONNY RODRIGUEZ Comment:Testing performed by : [address] [address] Urine 07/31/2024 12:1 8 PM CDT 07/31/2024 12:32 PM CDT us Alex Hernandez MD LAB MICROBIOLOGY - GENERAL OR DERABLES Final Result JHONNY [facility] Department [place] [address] * CBC with auto differential (07/31/2024 12:18 PM CDT) WBC 5.98 3.80 - 9.90 K/cumm Comment:Testing performed by : [address] [address] Hgb 14.4 13.0 - 17.5 g/dL JHONNY RODRIGUEZ Comment:Testing performed by : [address] [address] Hct 43.0 38.9 - 50.3 % JHONNY RODRIGUEZ Comment:Testing performed by : [address] [address] Plt 166 150 - 400 K/cumm JHONNY RODRIGUEZ Comment:Testing performed by : [address] [address] MPV 10.7 9.1 - 12.3 fL JHONNY RODRIGUEZ Comment:Testing performed by : [address] [address] RBC 4.61 4.30 - 5.80 M/cumm JHONNY RODRIGUEZ Comment:Testing performed by : [address] [address] MCV 93.3 81.3 - 96.4 fL JHONNY RODRIGUEZ Comment:Testing performed by : [address] [address] MCH 31.2 27.1 - 33.3 pg JHONNY RODRIGUEZ Comment:Testing performed by : [address] [address] MCHC 33.5 32.3 - 35.7 g/dL JHONNY RODRIGUEZ Comment:Testing performed by : [address] [address] RDW CV 12.7 11.1 - 14.9 % JHONNY RODRIGUEZ Comment:Testing performed by : [address] [address] RDW SD 43.1 35.7 - 48.1 fL JHONNY RODRIGUEZ Comment:Testing performed by : [address] [address] NRBC abs 0.00 0.00 - 0.01 K/cumm JHONNY Comment:Testing performed by : [address] [address] Blood 07/31/2024 12:1 8 PM CDT 07/31/2024 12:35 PM CDT us Alex Hernandez MD LAB BLOOD ORDERABLES Final Re sult JHONNY [address] [facility] Department [place] [address] * (ABNORMAL) Urinalysis, microscopic only (07/31/2024 12:18 PM CDT) WBC, ur 0-5 0 - 5 /HPF Comment:Testing performed by : [address] [address] RBC, ur 0-2 0 - 2 /HPF JHONNY Comment:Testing performed by : [address] [address] Mucous, ur Present(A) JHONNY Comment:Testing performed by : [facility], [address] [place] [address]., [address] Culture Reflex Comment Reflex conditions for urine culture (WBC >10) not met. JHONNY Comment:Testing performed by : [facility], [address] [place] [address]., [address] Urine 07/31/2024 12:1 8 PM CDT 07/31/2024 12:32 PM CDT Alex Hernandez MD LAB URINE ORDERABLES Final Re sult Performing Organization Address City/[facility]/ZIP Co de Phone Number JHONNY [address] [place] [employer] [place] [address] * TSH (07/31/2024 12:18 PM CDT) Thyroid Stimulating Hormone 1.62 0.30 - 4.20 mcIUnit/mL Comment:Testing performed by : [address] [address] Blood 07/31/2024 12:1 8 PM CDT 07/31/2024 12:35 PM CDT us Alex Hernandez MD LAB BLOOD ORDERABLES Final Re sult Performing Organization Address City/[facility]/ZIP Co de Phone Number [address] [address] * T4, free (07/31/2024 12:18 PM CDT) Free T4 1.11 0.90 - 1.70 ng/dL Comment:Testing performed by : [address] [address] Blood 07/31/2024 12:1 8 PM CDT 07/31/2024 12:35 PM CDT us Alex Hernandez MD LAB BLOOD ORDERABLES Final Re sult Performing Organization Address [facility] Co de Phone Number JHONNY [address] [address] * Hemoglobin A1c (07/31/2024 12:18 PM CDT) Hgb A1C 5.4 4.0 - 5.6 % Comment:Testing performed by : [address] [address] Estimated Average Glucose 108 mg/dL JHONNY Comment: The ADA recommends reporting an estimated Average Glucose (eAG) with all Hemoglobin A1c results using the equation derived from a study of 507 normal and diabetic adults. Minority populations were underrepresented and children were not included. (Diabetes Care 31:2861-6513, 2008). The eAG is not equivalent to a fasting glucose. Testing performed by: [address] [address] Blood 07/31/2024 12:1 8 PM CDT 07/31/2024 12:35 PM CDT us Alex Hernandez MD LAB BLOOD ORDERABLES Final Re sult Performing Organization Address [facility] de Phone Number [address] [address] * Folate (07/31/2024 12:18 PM CDT) Folic acid >20.0 >=5.0 ng/mL Comment:Testing performed by : [address] [address] Blood 07/31/2024 12:1 8 PM CDT 07/31/2024 12:35 PM CDT us Alex Hernandez MD LAB BLOOD ORDERABLES Final Re sult Performing Organization Address City/[facility] Co de Phone Number [address] [address] * Vitamin B12 (07/31/2024 12:18 PM CDT) Vitamin B12 609 230 - 1,250 pg/mL Comment:Testing performed by : [facility], [address] [place] [address]., [address] Blood 07/31/2024 12:1 8 PM CDT 07/31/2024 12:35 PM CDT Alex Hernandez MD LAB BLOOD ORDERABLES Final Re sult JHONNY [address] [facility] Department [place] [address] * (ABNORMAL) Lipid panel (07/31/2024 12:18 PM CDT) Cholesterol 210(H) 30 - 199 mg/dL Comment: Interpretive Data Ages < or = 19 years Acceptable: <170 mg/dL Borderline high: 170-199 mg/dL High: >or= 200 mg/dL Ages > or = 20 years Desirable: <200 mg/dL Borderline high: 200-239 mg/dL High: >or= 240 mg/dL Literature References: 1. Expert Panel on Integrated Guidelines for Cardiovascular Health and Risk Reduction in Children and Adolescents. Pediatrics 2011;128:S213 2. NCEP Expert Panel. Circulation 2004;110:227 Current Interpretive Data was last revised on 2017. Testing performed by: [facility], [address] [place] [address]., [address] Triglycerides 323(H) <=149 mg/dL JHONNY Comment: Interpretive Data Ages < or = 9 years Acceptable: <75 mg/dL Borderline high: 75-99 mg/dL High: >or= 100 mg/dL Ages 10 to 20 years Acceptable: <90 mg/dL Borderline high: 90-129 mg/dL High: >or= 130 mg/dL Ages > or = 20 years Desirable: <150 mg/dL Borderline high: 150-199 mg/dL High: 200-499 mg/dL Very high: >or= 499 mg/dL Literature References: 1. Expert Panel on Integrated Guidelines for Cardiovascular Health and Risk Reduction in Children and Adolescents. Pediatrics 2011;128:S213 2. NCEP Expert Panel. Circulation 2004;110:227 Current Interpretive Data was last revised on 2017. Testing performed by: [facility], [address] [place] [address]., [address] HDL 53 >=40 mg/dL JHONNY Comment: Interpretive Data Ages < or = 19 years Acceptable: >45 mg/dL Borderline low: 40-45 mg/dL Low: <40 mg/dL Ages > or = 20 years Desirable: >or= 60 mg/dL Low: <40 mg/dL Literature References: 1. Expert Panel on Integrated Guidelines for Cardiovascular Health and Risk Reduction in Children and Adolescents. Pediatrics 2011;128:S213 2. NCEP Expert Panel. Circulation 2004;110:227 Current Interpretive Data was last revised on 2017. Testing performed by: [address] [address] LDL, calculated 103 <=129 mg/dL JHONNY Comment: Interpretive Data Ages < or = 19 years Acceptable: <110 mg/dL Borderline high: 110-129 mg/dL High: >or= 130 mg/dL Ages > or = 20 years Optimal: <100 mg/dL Near optimal: 100-129 mg/dL Borderline high: 130-159 mg/dL High: >160 mg/dL Calculated using the Mookie LDL-C estimating equation. This equation was implemented on 2023. Prior to this date LDL-C was estimated using the Friedewald equation. Literature References: 1. Expert Panel on Integrated Guidelines for Cardiovascular Health and Risk Reduction in Children and Adolescents. Pediatrics 2011;128:S213 2. NCEP Expert Panel. Circulation 2004;110:227 3. Mookie Diaz al. AFSANEH Cardiol. 2020 August 13;5(5):540-548. doi: 10.1001/jamacardio.2020.0013 Current Interpretive Data was last revised on 2023. Testing performed by: [address] [address] Non-HDL Cholesterol 157 mg/dL JHONNY Comment: Interpretive Data Ages < or = 19 years Acceptable: <120 mg/dL Borderline high: 120-144 mg/dL High: >145 mg/dL Ages > or = 20 years When triglycerides are >200 mg/dL, Non-HDL cholesterol is a secondary target of therapy with treatment goals that are 30 mg/dL greater than the LDL cholesterol target. Literature References: 1. Expert Panel on Integrated Guidelines for Cardiovascular Health and Risk Reduction in Children and Adolescents. Pediatrics 2011;128:S213 2. NCEP Expert Panel. Circulation 2004;110:227 Current Interpretive Data was last revised on 2017. Testing performed by: [address] [address] Chol/HDL ratio 4 [facility] Comment:Testing performed by : [address] [address] Blood 07/31/2024 12:1 8 PM CDT 07/31/2024 12:35 PM CDT Alex Hernandez MD LAB BLOOD ORDERABLES Final Re sult Performing Organization Address [facility] de Phone Number [address] [place] [address] * PSA diagnostic (05/21/2024 1:13 PM ELECTRICAL PROSPECTING SUPERVISOR) PSA-Total <0.10 <=6.20 ng/mL Comment: Interpretive Data AGE SEX REFERENCE INTERVAL 0 minutes-150 years Female None 0 minutes-49 years Male None 50-59 years Male 0-3.90 60-69 years Male 0-5.40 70-79 years Male 0-6.20 80-150 years Male 0-6.20 The Odell PSA Total assay procedure was used. Results from different manufacturers or methods may not be comparable. Serial testing should be performed using the same method. Current interpretive data last revised 21. Testing performed by: [address] [address] Blood 05/21/2024 1:13 PM ELECTRICAL PROSPECTING SUPERVISOR 05/21/2024 2:21 PM ELECTRICAL PROSPECTING SUPERVISOR us Jose Mayfield MD LAB BLOOD ORDERABLES Final Resul t Performing Organization Address [facility] Co de Phone Number [place] [phone] [facility] [place] [address] * Hepatitis C antibody (05/18/2022 9:29 AM ELECTRICAL PROSPECTING SUPERVISOR) Hep C Ab Nonreactive Nonreactive JHONNY RODRIGUEZ Comment: Interpretive Data Nonreactive: Antibodies to HCV not detected. Does NOT exclude the possibility of recent exposure to HCV. Equivocal: Equivocal for HCV antibodies. Supplemental molecular testing will be automatically performed to determine infection status in accordance with current CDC screening recommendations. Reactive: Positive for HCV antibodies. This may represent current or past HCV infection. Supplemental molecular testing will be automatically performed to determine current infection status in accordance with current CDC screening recommendations. Interpretive data was last revised on 2019. Blood 05/18/2022 9:29 AM ELECTRICAL PROSPECTING SUPERVISOR 05/18/2022 12:45 PM ELECTRICAL PROSPECTING SUPERVISOR Bernard Jackman MD LAB MICROBIOLOGY - G ENERAL ORDERABLES Final Result JHONNY [address] [facility] Department [place] [address] * Colonoscopy (07/12/2015) Anatomical Region Laterality Modality Other Historical Provider ENDOSCOPY PROCEDURES Rachel l Result from Last 3 Months or Most Recently Relevant to Health Maintenance Insurance [employer] MEDICARE HMO FOR LIFE [facility] MEDICARE O FOR LIFE Care Teams Surgeon Chief Relationship Specialty Start Date End Date Bernard Jackman MD [address] [place] [address] PCP - General 12/06/18
--- OUTSIDE RECORDS SUMMARY | 2024-08-05 11:35 | XMS_ITS | Encounter Summary ---
Author Organization [facility] Address [address] [place] [address] Care Team Providers Care Continuity Manager Name Role Phone Bernard Jackman MD Primary Care Provid er Encounter Details Date Type Department Care Team (Late st Contact Info) Description 01/09/2022 Telephone [facility] [address] [place], [place] [id number] Bonita Hurst, [facility] Social History Tobacco Use Types Packs/Day Years Used Date Smoking Tobacco: Never Smokeless Tobacco: Never Alcohol Use Standard Drinks/Week Comments Yes 0 (1 standard drink = 0.6 oz pur e alcohol) SOCIAL AUDIT-C Answer Date Recorded Q1: How often do you have a drink containing alc ohol? Never 08/28/2021 Average Number of Drinks Not on file 022 Q3: How often do you have si x or more drinks on one occasion? Never 08/28/2021 PHQ-2 Answer Date Recorded PHQ-2 Total Score 0 03/29/2021 Sex and Gender Information Value Date Recorded Sex Assigned at Not on file Legal Sex Male 5:55 AM MULTIFOLD OPERATOR Gender Identity Male 02/18/2022 7:25 PM MULTIFOLD OPERATOR Sexual Orientation Not on file documented as of this encounter Plan of Treatment Not on file documented as of this encounter Visit Diagnoses Not on filedocumented in this encounter Additional Health Concerns Infection Onset Date Last Indicated Resolved Time COVID: Suspected 04/04/2023 04/04/2023 04/04/2023 6:43 PM MULTIFOLD OPERATOR COVID: Suspected 04/04/2023 04/04/2023 04/04/2023 10:36 PM MULTIFOLD OPERATOR documented as of this encounter Care Teams Continuity Manager Relationship Specialty Start Date End Date Bernard Jackman MD [address] [place] [address] PCP - General 12/06/18 documented as of this encounter
--- OUTSIDE RECORDS SUMMARY | 2024-08-05 11:35 | XMS_ITS | Encounter Summary ---
Author Organization [facility] Care Team Providers Care Heat Sealing Machine Operator Name Role Phone Miscellaneous, Not In File Primary Care Provider Unavailable Unknown, Notinfile Primary Care Provider Unavail Bernard Choi MD Primary Care Provid er Unknown, Notinfile Primary Care Provider Unavail Bernard Choi MD Primary Care Provid er Bernard Jackman MD Primary Care Provid er Edyta Saleh LPN Unavailable [phone] Encounter Details Date Type Department Care Team (Latest Contact Info) Description 07/12/2015 Orders Only [facility] ProviderRyan MD [address] [place] [id number] Social History Tobacco Use Types Packs/Day Years Used Date Smoking Tobacco: Never Sex and Gender Information Value Date Recorded Sex Assigned at Not on file Legal Sex Male 5:55 AM SLOT AMBASSADOR Gender Identity Male 02/18/2022 7:25 PM SLOT AMBASSADOR Sexual Orientation Not on file documented as of this encounter Plan of Treatment Not on file documented as of this encounter Procedures Procedure Name Priority Date/Time Associated Diagnosis Comments COLONOSCOPY - SCAN 07/12/2015 12 :00 AM CDT documented in this encounter Results * COLONOSCOPY - SCAN (07/12/2015 12:00 AM CDT) Narrative 07/12/2015 12:00 AM CDT Ordered by an unspecified provider. us Historical Provider Final Res ult documented in this encounter Visit Diagnoses Not on filedocumented in this encounter Additional Health Concerns Infection Onset Date Last Indicated Resolved Time COVID: Suspected 03/07/2021 03/07/2021 03/07/2021 9:43 AM SLOT AMBASSADOR COVID: Suspected 03/07/2021 03/07/2021 03/07/2021 8:41 PM SLOT AMBASSADOR COVID: Suspected 04/04/2023 04/04/2023 04/04/2023 6:43 PM SLOT AMBASSADOR COVID: Suspected 04/04/2023 04/04/2023 04/04/2023 10:36 PM SLOT AMBASSADOR documented as of this encounter Care Teams Heat Sealing Machine Operator Relationship Specialty Start Date End Date Miscellaneous, Not In File PCP - General 07/13/16 Unknown, Notinfile PCP - General 07/05/17 07/18/17 Bernard Jackman MD [address] [place] [address] PCP - General 07/19/17 07/19/17 Unknown, Notinfile PCP - General 07/20/17 07/23/17 Bernard Jackman MD [address] [place] [address] PCP - General 07/24/17 12/05/18 Bernard Jackman MD [address] [place] [address] PCP - General 12/06/18 Edyta Saleh LPN [address] [place] [address] Soaker Helper 07/20/20 07/20/20 documented as of this encounter
--- OUTSIDE RECORDS SUMMARY | 2024-08-05 11:35 | XMS_ITS | Clinical Summary ---
Author Organization [facility] Address [address] [place] [address] Care Team Providers Care Overhead Crane Truck Loader Name Role Phone Bernard Jackman MD Primary Care Provider + [phone] Allergies Active Allergy Reactions Criticality Noted Date Comments Lisinopril Cough 06/02/2022 Medications guaiFENesin ER (MUCINEX) 600 MG 12 hr tablet Take 2 tablets (1,200 mg total) by mouth 2 (two) times daily. 28 tablet 06/02/2022 Active ELIQUIS 5 MG tablet 05/28/2022 Active carvedilol (COREG) 25 MG tablet 05/16/2022 Active FLUoxetine (PROZAC) 20 MG tablet 04/12/2022 Active losartan (COZAAR) 25 MG tablet 04/18/2022 Active pantoprazole EC (PROTONIX) 40 MG tablet Take 1 tablet by mouth daily. 08/08/2021 Active rOPINIRole (REQUIP) 1 MG tablet 05/28/2022 Active simvastatin (ZOCOR) 20 MG tablet 05/12/2022 Active Social History Tobacco Use Types Packs/Day Years Used Date Smoking Tobacco: Never Smokeless Tobacco: Never Tobacco Cessation:Counseling Given: Not Answered Alcohol Use Standard Drinks/Week Comments Yes 0 (1 standard drink = 0.6 oz pur e alcohol) Sex and Gender Information Value Date Recorded Sex Assigned at Not on file Legal Sex Male 4:53 PM CDT Gender Identity Not on file Sexual Orientation Not on file Last Filed Vital Signs Vital Sign Reading Time Taken Comments Blood Pressure 125/76 06/02/2022 7:03 PM ELECTROLOGIST Pulse 68 06/02/2022 7:03 PM ELECTROLOGIST Temperature 36.4 C (97.5 F) 06/02/2022 7:03 PM ELECTROLOGIST Respiratory Rate 20 06/02/2022 7:03 PM ELECTROLOGIST Oxygen Saturation 96% 06/02/2022 7:03 PM ELECTROLOGIST Inhaled Oxygen Concentration - - Weight 108 kg (238 lb) 06/02/2022 7:03 PM ELECTROLOGIST Height 177.8 cm (5' 10 ) 06/02/2022 7:03 PM ELECTROLOGIST Body Mass Index 34.15 06/02/2022 7:03 PM ELECTROLOGIST Plan of Treatment Health Maintenance Due Date Last Done Comments Colorectal Cancer Screening Colonoscopy (10 Years) 1950 Hepatitis C 1968 DTaP, Tdap and Td Vaccines ( 1 - Tdap) 1969 Pneumococcal Vaccine: 50+ Years (1 of 1 - PCV) 2000 Annual Medicare Wellness Visit 11/10/2015 Zoster Vaccines (2 of 2) 07/06/2022 05/11/2022 COVID-19 Vaccine (4 - 2023-2 5 season) 2023 02/09/2021, 06/22/2020, 05/23/2020 RSV Immunization or 60+ Years (1 - 1-dose 75+ series) 2025 Meningococcal B Vaccine Aged Out No l onger eligible based on patient's age to complete this topic Meningococcal Vaccine Aged Out No marilee alivia eligible based on patient's age to complete this topic RSV Immunizations Under 20 Months Aged Out No longer eligible b ased on patient's age to complete this topic Insurance MEDICARE [facility] Care Teams Overhead Crane Truck Loader Relationship Specialty Start Date End Date Bernard Jackman MD [address] [place], [place] [id number] PCP - General FAMILY PRACTICE 06/02/22
--- OUTSIDE RECORDS SUMMARY | 2024-08-05 11:35 | XMS_ITS ---
Author Organization [facility] Address [address] [place] [address] Care Team Providers Care Director Of Social Services Name Role Phone Bernard Jackman MD Primary Care Provid er Active Problems Problem Noted Date Diagnosed Date [...] Dr. Terrell and KEDAR Cardenas contacted via [employer] to scheduled post op follow up appointment. PLMD (periodic limb movement disorder) Assessment & Plan (05/25/2024 8:47 AM ANIMAL PHYSIOLOGY TEACHER): Patient will continue with Requip 1 mg p.o. at bedtime. Assessment & Plan (04/25/2023 11:28 AM ANIMAL PHYSIOLOGY TEACHER): PLMS are under control with Requip 1 mg at bedtime. Assessment & Plan (04/19/2022 12:03 PM ANIMAL PHYSIOLOGY TEACHER): Patient will continue with Requip 1 mg p.o. at bedtime. Assessment & Plan (02/19/2022 12:50 PM ANIMAL PHYSIOLOGY TEACHER): Patient will continue with Requip 1 mg [...] 10/10/2012 Assessment & Plan (05/25/2024 8:47 AM ANIMAL PHYSIOLOGY TEACHER): Patient will continue with CPAP therapy at 6-20 cm water pressure. I have sent an order for the patient to receive the correct hose. The patient does have a Angelia machine a not a ResMed. Patient's DME is [employer]. Assessment & Plan (04/25/2023 11:28 AM ANIMAL PHYSIOLOGY TEACHER): The patient continues to benefit from the auto titrating CPAP unit with a range of 6-20 cm water pressure for ongoing symptoms of DELFINA. His DME supplier is [employer]. He will follow up here in 1 year. Assessment & Plan (04/19/2022 12:03 PM ANIMAL PHYSIOLOGY TEACHER): Patient will continue with CPAP therapy at 6-20 cm water pressure. Patient's DME is [employer]. Assessment & Plan (02/19/2022 12:51 PM ANIMAL PHYSIOLOGY TEACHER): Patient will continue with CPAP therapy at [...] humidity and a full set of supplies. DME company provider [employer]. The patient and I also [...] receive an order for new supplies. The [employer] company is [employer]. The patient is benefitting from CPAP therapy. Hyperlipidemia 10/10/2012 Aortic valve stenosis 04/18/2012 Cough 12/05/2011 Left ventricular hypertrophy 10/16/2011 Current Treatment and Therapy Plans No current plan information found. Past Treatment and Therapy Plans No past plan information found. Lifetime Dose Tracking * Chemical Lifetime Dose Automatic Entry Manual Entr y Fluoro Time 1.917 minutes 1.917 minutes 0 minutes Air kerma at the reference point (Ka,r) 371.2 mGy 3 71.2 mGy 0 mGy DLP 1,766 mGycm 1,766 mGycm 0 mGycm Resolved Problems Problem Noted Date Diagnosed Date Resolved Date Undiagnosed cardiac murmurs 04/18/2023 02/25/2024 Impacted cerumen, right ear [H61.21 (ICD-10-CM)] 08/28/2022 08/28/2022
--- OUTSIDE RECORDS SUMMARY | 2024-08-05 11:35 | XMS_ITS | Referral Summary ---
Author Organization [facility] Address [address] [place] [address] Care Team Providers Care Airport Ramp Attendant Name Role Phone Bernard Jackman MD Primary Care Provid er Encounters Date Type Department Care Team Description 08/05/2024 8:31 AM CDT Hospital Encounter [facility] [address] [place] [address] Chronic cough; Dysphagia, oropharyngeal phase 07/31/2024 12:00 PM CDT Lab [facility] Lab [address] [place] [address] 05/26/2024 9:20 AM MEDICAL CHIEF TECHNICIAN Office Visit [facility] [address] [place] [address] Jose Mayfield MD Prostate cancer (HCC) (Primary Dx); Erectile dysfunction, unspecified erectile dysfunction type 05/25/2024 Telephone [facility] [address] [place] [address] Yefri Ribera MD Orders Only 05/25/2024 8:00 AM MEDICAL CHIEF TECHNICIAN Office Visit [facility] [place] [address] [place] [address] [address] [place] [address] Sun Mann NP Obstructive sleep apnea syndrome (Primary Dx); PLMD (periodic limb movement disorder) 05/21/2024 1:05 PM MEDICAL CHIEF TECHNICIAN Lab [facility] [address] [place] [address] Prostate cancer (HCC) 05/15/2024 Orders Only [facility] [address] [place] [address] Jose Mayfield MD Prostate cancer (HCC) (Primary Dx) from Last 3 Months Allergies Active Allergy Reactions Criticality Noted Date [...] Dr. Terrell and KEDAR Cardenas contacted via Denator to scheduled post op follow up appointment. PLMD (periodic limb movement disorder) Assessment & Plan (05/25/2024 8:47 AM MEDICAL CHIEF TECHNICIAN): Patient will continue with Requip 1 mg p.o. at bedtime. Assessment & Plan (04/25/2023 11:28 AM MEDICAL CHIEF TECHNICIAN): PLMS are under control with Requip 1 mg at bedtime. Assessment & Plan (04/19/2022 12:03 PM MEDICAL CHIEF TECHNICIAN): Patient will continue with Requip 1 mg p.o. at bedtime. Assessment & Plan (02/19/2022 12:50 PM MEDICAL CHIEF TECHNICIAN): Patient will continue with Requip 1 mg [...] 10/10/2012 Assessment & Plan (05/25/2024 8:47 AM MEDICAL CHIEF TECHNICIAN): Patient will continue with CPAP therapy at 6-20 cm water pressure. I have sent an order for the patient to receive the correct hose. The patient does have a Angelia machine a not a ResMed. Patient's DME is [employer]. Assessment & Plan (04/25/2023 11:28 AM MEDICAL CHIEF TECHNICIAN): The patient continues to benefit from the auto titrating CPAP unit with a range of 6-20 cm water pressure for ongoing symptoms of DELFINA. His DME supplier is [employer]. He will follow up here in 1 year. Assessment & Plan (04/19/2022 12:03 PM MEDICAL CHIEF TECHNICIAN): Patient will continue with CPAP therapy at 6-20 cm water pressure. Patient's DME is [employer]. Assessment & Plan (02/19/2022 12:51 PM MEDICAL CHIEF TECHNICIAN): Patient will continue with CPAP therapy at [...] receive an order for new supplies. The [employer] company is [employer]. The patient is benefitting from CPAP therapy. Hyperlipidemia 10/10/2012 Aortic valve stenosis 04/18/2012 Cough 12/05/2011 Left ventricular hypertrophy 10/16/2011 Resolved Problems Problem Noted Date Diagnosed Date Resolved Date Undiagnosed cardiac murmurs 04/18/2023 02/25/2024 Impacted cerumen, right ear [H61.21 (ICD-10-CM)] 08/28/2022 08/28/2022 Immunizations Immunization Administration Dates Next Due Influenza, Quad, Adjuvantate d, Intramuscular 02/08/2023,02/09/2021 Influenza, Quadrivalent, Hig h Dose, Preservative Free, Intrr 02/02/2022,02/02/2020 Influenza, Trivalent, High D ose, Split, Preservative Free, Intramuscular 02/07/2024 Influenza, Trivalent, IM (MDV) 01/14/2020,2015,01/17/2015 Influenza, Unspecified 01/13/2021 Moderna SARS-CoV-2 Monovalen t Vaccination (12+ YRS) 06/22/2020,05/23/2020 Pneumococcal Conjugate Pcv20 10/05/2022 ZOSTER Recombinant 08/06/2022,05/11/2022 Social History Tobacco Use Types Packs/Day Years [...] on file Legal Sex Male 5:55 AM MEDICAL CHIEF TECHNICIAN Gender Identity Male 02/18/2022 7:25 PM MEDICAL CHIEF TECHNICIAN Sexual Orientation Not on file Last Filed Vital Signs Vital Sign Reading Time Taken Comments Blood Pressure 114/64 05/25/2024 7:56 AM MEDICAL CHIEF TECHNICIAN Pulse 64 05/25/2024 7:56 AM MEDICAL CHIEF TECHNICIAN Temperature 36.9 C (98.4 F) 05/25/2024 7:56 AM MEDICAL CHIEF TECHNICIAN Respiratory Rate 18 05/25/2024 7:56 AM MEDICAL CHIEF TECHNICIAN Oxygen Saturation 92% 05/25/2024 7:56 AM MEDICAL CHIEF TECHNICIAN Inhaled Oxygen Concentration - - Weight 109.8 kg (242 lb) 05/26/2024 9:19 AM MEDICAL CHIEF TECHNICIAN Height 177.8 cm (5' 10 ) 05/26/2024 9:19 AM MEDICAL CHIEF TECHNICIAN Body Mass Index 34.72 05/26/2024 9:19 AM MEDICAL CHIEF TECHNICIAN Plan of Treatment Not on file Medical Devices Implanted Type Area Group Director Experience Device Identifier Shelf Expiration Date Model / Serial / Lot [employer] Progrip [id number] Self Fixate Flat Sheet Mesh Surgical Marilyn Pet Latex Free [id number] - [id number] Implanted:Qty : 1 on 08/28/2021 by Jose Galloway MD at [facility] N/A: Umbilical [employer] [id number] 05/15/2024 [id number] / / [id number] Explanted Type Area Group Director Experience Device Identifier Shelf Expiration Date Model / Serial / Lot [employer] Progrip [id number] Self Fixate Flat Sheet Mesh Surgical Marilyn Pet Latex Free [id number] - [id number] Explanted:Qty : 1 on 08/28/2021 at [facility] N/A: Umbilical [employer] [id number] 05/15/2024 [id number] / / [id number] Procedures Procedure Name Priority Date/Time Associated Diagnosis [...] CDT PSA DIAGNOSTIC Routine 05/21/2024 1:13 PM MEDICAL CHIEF TECHNICIAN Prostate cancer (HCC) HEPATITIS C ANTIBODY Routine 05/18/2022 9:29 AM MEDICAL CHIEF TECHNICIAN Encounter for screening for other viral diseases [...] Christofer Hauser M.D. LORA: LORA Report ID: [id number] Reading Location: [id number] Procedure Note Christofer Hauser MD - 08/05/2024 [...] Christofer Hauser M.D. LORA: LORA Report ID: [id number] Reading Location: [place] [address] Alex Hernandez MD IMG FLUOROSCOPY PROCEDURES Fi nal Result * Differential, auto (07/31/2024 12:18 PM CDT) Neutrophil abs 3.66 1.50 - 6.50 K/cumm Comment:Testing performed by : [address] [address] Imm gran abs 0.01 0.00 - 0.10 K/cumm [facility] Comment:Testing performed by : [address] [address] Lymphocyte abs 1.39 0.80 - 3.30 K/cumm [facility] Comment:Testing performed by : [address] [address] Monocyte abs 0.59 0.20 - 0.80 K/cumm [facility] Comment:Testing performed by : [address] [address] Eosinophil abs 0.30 0.00 - 0.50 K/cumm [facility] Comment:Testing performed by : [address] [address] Basophil abs 0.03 0.00 - 0.10 K/cumm [facility] Comment:Testing performed by : [address] [address] Neutrophil pct 61.2 % [facility] Comment: Interpretive Data Percent cell count reference ranges are not reported, since discordance with absolute values may lead to misinterpretation of CBC data. Current Interpretive Data was last revised on 2017. Testing performed by: [address] [address] Imm gran pct 0.2 % [facility] Comment: Interpretive Data Percent cell count reference ranges are not reported, since discordance with absolute values may lead to misinterpretation of CBC data. Current Interpretive Data was last revised on 2017. Testing performed by: [address], [address] Lymphocyte pct 23.2 % [facility] Comment: Interpretive Data Percent cell count reference ranges are not reported, since discordance with absolute values may lead to misinterpretation of CBC data. Current Interpretive Data was last revised on 2017. Testing performed by: [address] [address] Monocyte pct 9.9 % [facility] Comment: Interpretive Data Percent cell count reference ranges are not reported, since discordance with absolute values may lead to misinterpretation of CBC data. Current Interpretive Data was last revised on 2017. Testing performed by: [address] [address] Eosinophil pct 5.0 % [facility] Comment: Interpretive Data Percent cell count reference ranges are not reported, since discordance with absolute values may lead to misinterpretation of CBC data. Current Interpretive Data was last revised on 2017. Testing performed by: [address] [address] Basophil pct 0.5 % [facility] Comment: Interpretive Data Percent cell count reference ranges are not reported, since discordance with absolute values may lead to misinterpretation of CBC data. Current Interpretive Data was last revised on 2017. Testing performed by: [address] [address] Blood 07/31/2024 12:1 8 PM CDT 07/31/2024 12:35 PM CDT us Alex Hernandez MD LAB BLOOD ORDERABLES Final Re sult [facility] [address] Department [place] [address] * (ABNORMAL) Urinalysis reflex to microscopic and culture Urine (07/31/2024 12:18 PM CDT) Color, ur Yellow Yellow Comment:Testing performed by : [address] [address] Clarity, ur Clear Clear [facility] Comment:Testing performed by : [address] [place]., [address] Specific gravity, ur 1.026 1.003 - 1.030 [facility] Comment:Testing performed by : [address], [place]., [address] pH, urine 5.5 [facility] Comment: Interpretive Data U rine pH is affected by diet, medications, systemic acid-base disturbances, and renal tubular function. pH may affect urinary stone formation. For example, urine pH below 6.0 may help reduce the tendency for calcium phosphate stones and pH greater than 6.0 may reduce the tendency for uric acid stone formation. Source: [facility] Current Interpretive Data was last revised on 2017 Testing performed by: [address] [address] Protein, ur ql Trace(A) Negative [facility] Comment:Testing performed by : [address], [place]., [address] Glucose, ur ql Negative Negative [facility] Comment:Testing performed by : [address] [address] Ketones, ur Trace(A) Negative [facility] Comment:Testing performed by : [address] [address] Bilirubin, ur Negative Negative [facility] Comment:Testing performed by : [address] [address] Blood, ur Negative Negative [facility] Comment:Testing performed by : [address] [address] Urobilinogen, ur 2.0(A) <2.0 mg/dL [facility] Comment:Testing performed by : [address] [address] Nitrite, ur Negative Negative [facility] Comment:Testing performed by : [address] [address] Leukocyte esterase, ur Negative Negative [facility] Comment:Testing performed by : [address] [address] UA reflex comment Reflex to microscopic UA will be performed. [facility] Comment:Testing performed by : [address], [place]., [address] Urine 07/31/2024 12:1 8 PM CDT 07/31/2024 12:32 PM CDT Alex Hernandez MD LAB MICROBIOLOGY - GENERAL OR DERABLES Final Result [facility] [address] Department [place] [address] * CBC with auto differential (07/31/2024 12:18 PM CDT) WBC 5.98 3.80 - 9.90 K/cumm Comment:Testing performed by : [address] [address] Hgb 14.4 13.0 - 17.5 g/dL [facility] Comment:Testing performed by : [address] [address] Hct 43.0 38.9 - 50.3 % [facility] Comment:Testing performed by : [address] [address] Plt 166 150 - 400 K/cumm [facility] Comment:Testing performed by : [address] [address] MPV 10.7 9.1 - 12.3 fL [facility] Comment:Testing performed by : [address] [address] RBC 4.61 4.30 - 5.80 M/cumm [facility] Comment:Testing performed by : [address] [address] MCV 93.3 81.3 - 96.4 fL [facility] Comment:Testing performed by : [address] [address] MCH 31.2 27.1 - 33.3 pg [facility] Comment:Testing performed by : [address] [address] MCHC 33.5 32.3 - 35.7 g/dL [facility] Comment:Testing performed by : [address] [address] RDW CV 12.7 11.1 - 14.9 % [facility] Comment:Testing performed by : [address] [address] RDW SD 43.1 35.7 - 48.1 fL [facility] Comment:Testing performed by : [address] [address] NRBC abs 0.00 0.00 - 0.01 K/cumm [facility] Comment:Testing performed by : [address] [address] Blood 07/31/2024 12:1 8 PM CDT 07/31/2024 12:35 PM CDT us Alex Hernandez MD LAB BLOOD ORDERABLES Final Re sult Performing Organization Address [facility] de Phone Number [facility] Department [place] [address] * (ABNORMAL) Urinalysis, microscopic only (07/31/2024 12:18 PM CDT) WBC, ur 0-5 0 - 5 /HPF Comment:Testing performed by : [address] [address] RBC, ur 0-2 0 - 2 /HPF [facility] ROD[facility]IG[facility] Comment:Testing performed by : [address] [address] Mucous, ur Present(A) [facility] Comment:Testing performed by : [address], [address] Culture Reflex Comment Reflex conditions for urine culture (WBC >10) not met. [facility] Comment:Testing performed by : [address] [address] Urine 07/31/2024 12:1 8 PM CDT 07/31/2024 12:32 PM CDT us Alex Hernandez MD LAB URINE ORDERABLES Final Re sult Performing Organization Address City/[facility]/ZIP Co de Phone Number ARTUR[address] [address] * TSH (07/31/2024 12:18 PM CDT) Pathologist [facility] Thyroid Stimulating Hormone 1.62 0.30 - 4.20 mcIUnit/mL Comment:Testing performed by : [address] [address] Blood 07/31/2024 12:1 8 PM CDT 07/31/2024 12:35 PM CDT Alex Hernandez MD LAB BLOOD ORDERABLES Final Re sult Performing Organization Address [facility] Co de Phone Number [address] [address] * T4, free (07/31/2024 12:18 PM CDT) Pathologist [facility] Free T4 1.11 0.90 - 1.70 ng/dL Comment:Testing performed by : [address] [address] Blood 07/31/2024 12:1 8 PM CDT 07/31/2024 12:35 PM CDT Alex Hernandez MD LAB BLOOD ORDERABLES Final Re sult Performing Organization Address City/[facility]/ZIP Co de Phone Number [address] [address] * Hemoglobin A1c (07/31/2024 12:18 PM CDT) Pathologist [facility] Hgb A1C 5.4 4.0 - 5.6 % Comment:Testing performed by : [address] [address] Estimated Average Glucose 108 mg/dL [facility] Comment: The ADA recommends reporting an estimated Average Glucose (eAG) with all Hemoglobin A1c results using the equation derived from a study of 507 normal and diabetic adults. Minority populations were underrepresented and children were not included. (Diabetes Care 31:5264-1125, 2008). The eAG is not equivalent to a fasting glucose. Testing performed by: [address] [address] Blood 07/31/2024 12:1 8 PM CDT 07/31/2024 12:35 PM CDT Alex Hernandez MD LAB BLOOD ORDERABLES Final Re sult Performing Organization Address [facility] Co de Phone Number [address] [place] [address] * Folate (07/31/2024 12:18 PM CDT) Folic acid >20.0 >=5.0 ng/mL Comment:Testing performed by : [address] [address] Blood 07/31/2024 12:1 8 PM CDT 07/31/2024 12:35 PM CDT Alex Hernandez MD LAB BLOOD ORDERABLES Final Re sult Performing Organization Address [facility] Co de Phone Number [address] [address] * Vitamin B12 (07/31/2024 12:18 PM CDT) Vitamin B12 609 230 - 1,250 pg/mL Comment:Testing performed by : [address] [address] Blood 07/31/2024 12:1 8 PM CDT 07/31/2024 12:35 PM CDT us Alex Hernandez MD LAB BLOOD ORDERABLES Final Re sult Performing Organization Address [facility] Co de Phone Number [address] [address] * (ABNORMAL) Lipid panel (07/31/2024 12:18 PM [...] last revised on 2017. Testing performed by: [address] [address] Triglycerides 323(H) <=149 mg/dL [facility] Comment: Interpretive [...] last revised on 2017. Testing performed by: [address] [address] HDL 53 >=40 mg/dL [facility] Comment: Interpretive [...] last revised on 2017. Testing performed by: [address] [address] LDL, calculated 103 <=129 mg/dL [facility] Comment: Interpretive Data Ages < or = [...] NCEP Expert Panel. Circulation 2004;110:227 3. Mookie Gaviria et al. AFSANEH Cardiol. 2019August 13;5(5):540-548. doi: 10.1001/jamacardio.2020.0013 Current Interpretive Data was last revised on 2023. Testing performed by: [address] [address] Non-HDL Cholesterol 157 mg/dL [facility] Comment: Interpretive Data Ages < or = [...] last revised on 2017. Testing performed by: [address] [address] Chol/HDL ratio 4 [facility] Comment:Testing performed by : [address] [address] Blood 07/31/2024 12:1 8 PM CDT 07/31/2024 12:35 PM CDT Alex Hernandez MD LAB BLOOD ORDERABLES Final Re sult Performing Organization Address [facility] Co de Phone Number [address] [address] * PSA diagnostic (05/21/2024 1:13 PM MEDICAL CHIEF TECHNICIAN) PSA-Total <0.10 <=6.20 ng/mL Comment: Interpretive Data [...] data last revised 21. Testing performed by: [facility], [address] [place] [address]., [address] Blood 05/21/2024 1:13 PM MEDICAL CHIEF TECHNICIAN 05/21/2024 2:21 PM MEDICAL CHIEF TECHNICIAN Result [facility] Jose Mayfield MD LAB BLOOD ORDERABLES Final Resul t Performing Organization Address [facility] de Phone Number [address] [address] * Hepatitis C antibody (05/18/2022 9:29 AM MEDICAL CHIEF TECHNICIAN) Hep C Ab Nonreactive Nonreactive [facility] Comment: Interpretive Data Nonreactive: Antibodies to HCV [...] revised on 2019. Blood 05/18/2022 9:29 AM MEDICAL CHIEF TECHNICIAN 05/18/2022 12:45 PM MEDICAL CHIEF TECHNICIAN Bernard Jackman MD LAB MICROBIOLOGY - G ENERAL ORDERABLES Final Result [facility] [address] [facility] Department [place] [address] * Colonoscopy (07/12/2015) Anatomical Region Laterality Modality Other Historical Provider ENDOSCOPY PROCEDURES Rachel l Result from Last 3 Months or Most Recently Relevant to Health Maintenance Insurance [employer] [facility] MEDICARE HMO [employer]IC[employer] HMO [employer] Care Teams Airport Ramp Attendant Relationship Specialty Start Date End Date Bernard Jackman MD [address] [place] [address] PCP - General 12/06/18
--- OUTSIDE RECORDS SUMMARY | 2024-08-05 11:35 | XMS_ITS | Clinical Summary ---
Author Organization [facility] Address [address] [place] [address] Care Team Providers Care Doula Name Role Phone Unavailable Primary Care Provider Unavailabl e Source Comments [facility],non-owned Affiliates and Associated Physician Practices is amultiple site organization consisting of ambulatory clinics and hospital sitesin [place], [place], [place] and [place]. This disclosure is being madepursuant to the Care Everywhere program and may not contain all information available regarding this patient. Last updated 18.[facility] [employer] Social History Tobacco Use Types Packs/Day Years Used Date Smoking Tobacco: Never Assessed Sex and Gender Information Value Date Recorded Sex Assigned at Not on file Legal Sex Male 9:20 AM CDT Gender Identity Not on file Sexual Orientation Not on file Plan of Treatment Health Maintenance Due Date Last Done Comments COLOGUARD (AGES 45-75) - COL ON CA SCREENING 1950 COLON MONITORING 1950 COLONOSCOPY - COLON CA SCREENING 1950 CT COLONOGRAPHY - COLON CA SCREENING 1950 Colorectal Cancer Screening 1950 FIT - COLON CA SCREENING 1950 FLEX SIG - COLON CA SCREENING 1950 LIPID TESTING 1950 HEPATITIS C SCREENING 11/04/1968 DTAP/TDAP/TD VACCINES (1 - Tdap) 1969 PNEUMOCOCCAL VACCINE 50+ (1 of 1 - PCV) 2000 ZOSTER VACCINE (1 of 2) 2000 COVID-19 VACCINE ( - 2023-2 5 season) 2023 DEPRESSION SCREENING 04/15/2024 MEDICARE AWV CALENDAR YEAR 2024 INFLUENZA VACCINE (Season Ended) 2024 Respiratory Syncytial Virus (RSV) Vaccine Pt: or over 60 yrs (1 - 1-dose 75+ series) 2025 HEPATITIS B VACCINE Aged Out No longe r eligible based on patient's age to complete this topic HIB VACCINE Aged Out No longer eligi ble based on patient's age to complete this topic HPV VACCINE Aged Out No longer eligi ble based on patient's age to complete this topic MENINGOCOCCAL (Group B) VACC INE SHARED DECISION-MAKING Aged Out No longer eligibl e based on patient's age to complete this topic MENINGOCOCCAL GROUPS A/C/Y/W VACCINE Aged Out No longer eligible b ased on patient's age to complete this topic Insurance MEDICARE [facility] Address: [address] [place] [address] [employer] MED[employer]ARE ADV HMO & PPO
--- OUTSIDE RECORDS SUMMARY | 2024-08-05 11:36 | XMS_ITS | Clinical Summary ---
Author Organization [facility] Care Team Providers Care Machine Stamper Name Role Phone Unavailable Primary Care Provider Unavailabl e Social History Tobacco Use Types Packs/Day Years Used Date Smoking Tobacco: Never Assessed Sex and Gender Information Value Date Recorded Sex Assigned at Not on file Legal Sex Male 2:11 PM LAMP WIRER Gender Identity Not on file Sexual Orientation Not on file Plan of Treatment Health Maintenance Due Date Last Done Comments Hepatitis C Virus (HCV) Screening 1950 TdaP Immunization 1950 Colonoscopy 11/10/1995 Colorectal Cancer Screening 11/10/1995 Cologuard 2000 Immunochemical Fecal Occult Blood 2000 Pneumococcal Immunization (50+ years) (1 of 1 - PCV) 2000 Zoster Immunization (1 of 2) 2000 Influenza Immunization (#1) 12/15/202301/14, 01/13/2021, 01/14/2020, Additional history exists SARS-COV-2 Immunization ( season) 2023 02/09/2021, 06/22/2020, 05/23/2020 Respiratory Syncytial Virus (RSV) Immunization (Adult) (1 - 1-dose 75+ series) 2025 Hepatitis B Immunization Aged Out No longer eligible based on patient's age to complete this topic Meningococcal Immunization (ACWY) Aged Out No longer eligible based on patient's age to complete this topic Rotavirus Immunization Aged Out No lo nger eligible based on patient's age to complete this topic
[2024-08-05 11:39] LABS: Hemoglobin A1C 5.5 % (<5.7)
[2024-08-05 11:50] LABS: Free T4 Free Thyroxine 0.85 ng/dL (0.78-2.19)
[2024-08-07 12:52] LABS: Angiotensin Converting Enzyme 19 U/L (9-67)
== END 2024-08-05 10:16 | disposition home or self-care (01) ==
PROVIDERS: PCP Internal Medicine; Visit Provider Internal Medicine
DX: Z13.1 Encounter for screening for diabetes mellitus (principal); Z13.29 Encounter for screening for other suspected endocrine disorder; E78.5 Hyperlipidemia, unspecified; R05.3 Chronic cough; E55.9 Vitamin D deficiency, unspecified; I10 Essential (primary) hypertension; Z79.899 Other long term (current) drug therapy
CPT/HCPCS: 36415; 80053; 80061; 81003; 82164; 82306; 83036; 84439; 84443

== ENCOUNTER 2024-09-25 00:54 | Day surgery (SDC) | payer MEDICARE, OTHER, SELFPAY ==
[2024-09-23 11:50] VITALS: BMI 31.4
--- OUTSIDE RECORDS SUMMARY | 2024-09-25 00:58 | XMS_ITS | Referral Summary ---
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 Name Role Phone Bernard Jackman MD Primary Care Provid er Encounters Date Type Department Care Team Description 09/08/2024 8:33 AM CDT - 09/08/2024 11:59 PM CDT Hospital Encounter [facility] Diagnostic Imaging [address] [place], [place] [id number] Chronic cough; Dysphagia, oropharyngeal phase Discharge Disposition: Discharge to home or self care 09/08/2024 9:00 AM CDT Therapy [facility] Medical Office Bldg 1 Outptnt Speech Therapy [address] [place] [phone] Rosanna Brown WEB[employer] PORTAL ARCHITECT Dysphagia, unspecified type [R13.10] (Primary Dx) 08/17/2024 3:40 PM CDT - 08/17/2024 11:59 PM CDT Hospital Encounter [facility] CT [address] [place] [address] Chronic cough Discharge Disposition: Discharge to home or self care 08/17/2024 3:39 PM CDT - 08/17/2024 11:59 PM CDT Hospital Encounter [facility] Respiratory Therapy [address] [place] [phone] Chronic cough Discharge Disposition: Discharge to home or self care 08/05/2024 8:31 AM CDT - 08/05/2024 11:59 PM CDT Hospital Encounter [facility] Diagnostic Imaging [address] [place] [address] Chronic cough; Dysphagia, oropharyngeal phase Discharge Disposition: Discharge to home or self care 07/31/2024 12:00 PM CDT Lab [facility] Lab [address] [place] [phone] from Last 3 Months Allergies Active Allergy [...] and dinner 180 tablet 1 4 Active simvastatin (ZOCOR) 20 mg tablet [...] 12 tablet 11 5 05/21/19 26 Active rOPINIRole (REQUIP) 1 mg tabletIndicatio ns:PLMD (periodic limb movement disorder) Take 1 tablet (1 mg total) by mouth nightly 90 tablet 2 5 Active Active Problems Problem Noted Date Diagnosed [...] Dr. Terrell and KEDAR Cardenas contacted via [employer] to scheduled post op follow up appointment. PLMD (periodic limb movement disorder) Assessment & Plan (05/25/2024 8:47 AM PROJECT SUPERINTENDENT): Patient will continue with Requip 1 mg p.o. at bedtime. Assessment & Plan (04/25/2023 11:28 AM PROJECT SUPERINTENDENT): PLMS are under control with Requip 1 mg at bedtime. Assessment & Plan (04/19/2022 12:03 PM PROJECT SUPERINTENDENT): Patient will continue with Requip 1 mg p.o. at bedtime. Assessment & Plan (02/19/2022 12:50 PM PROJECT SUPERINTENDENT): Patient will continue with Requip 1 mg [...] 10/10/2012 Assessment & Plan (05/25/2024 8:47 AM PROJECT SUPERINTENDENT): Patient will continue with CPAP therapy at 6-20 cm water pressure. I have sent an order for the patient to receive the correct hose. The patient does have a Angelia machine a not a [employer]Med. Patient's DME is [employer]. Assessment & Plan (04/25/2023 11:28 AM PROJECT SUPERINTENDENT): The patient continues to benefit from the auto titrating CPAP unit with a range of 6-20 cm water pressure for ongoing symptoms of DELFINA. His DME supplier is [employer]. He will follow up here in 1 year. Assessment & Plan (04/19/2022 12:03 PM PROJECT SUPERINTENDENT): Patient will continue with CPAP therapy at 6-20 cm water pressure. Patient's DME is [employer]. Assessment & Plan (02/19/2022 12:51 PM PROJECT SUPERINTENDENT): Patient will continue with CPAP therapy at [...] on file Legal Sex Male 5:55 AM PROJECT SUPERINTENDENT Gender Identity Male 02/18/2022 7:25 PM PROJECT SUPERINTENDENT Sexual Orientation Not on file Last Filed Vital Signs Vital Sign Reading Time Taken Comments Blood Pressure 114/64 05/25/2024 7:56 AM PROJECT SUPERINTENDENT Pulse 64 05/25/2024 7:56 AM PROJECT SUPERINTENDENT Temperature 36.9 C (98.4 F) 05/25/2024 7:56 AM PROJECT SUPERINTENDENT Respiratory Rate 18 05/25/2024 7:56 AM PROJECT SUPERINTENDENT Oxygen Saturation 92% 05/25/2024 7:56 AM PROJECT SUPERINTENDENT Inhaled Oxygen Concentration - - Weight 109.8 kg (242 lb) 05/26/2024 9:19 AM PROJECT SUPERINTENDENT Height 177.8 cm (5' 10) 05/26/2024 9:19 AM PROJECT SUPERINTENDENT Body Mass Index 34.72 05/26/2024 9:19 AM PROJECT SUPERINTENDENT Plan of Treatment Not on file Medical Devices Implanted Type Area Steak Sauce Maker Device Identifier Shelf Expiration Date Model / Serial / Lot [employer] Progrip [id number] Self Fixate Flat Sheet Mesh Surgical Marilyn Pet Latex Free [id number] - [id number] Implanted:Qty : 1 on 08/28/2021 by Jose Galloway MD at [facility] N/A: Umbilical [employer] [id number] 05/15/2024 [id number] / / [id number] Explanted Type Area Steak Sauce Maker Device Identifier Shelf Expiration Date Model / Serial / Lot Med[employer]onic [employer] Progrip [id number] Self Fixate Flat Sheet Mesh Surgical Marilyn Pet Latex Free [id number] - [id number] Explanted:Qty : 1 on 08/28/2021 at [facility] N/A: Umbilical [employer] [id number] 05/15/2024 [id number] / / [id number] Procedures Procedure Name Priority Date/Time Associated Diagnosis Comments FL MODIFIED BARIUM SWALLOW W VIDEO Schedule Routine, Read Routine (OP Routine) 09/08/2024 9:07 AM CDT Chronic cough Dysphagia, oropharyngeal phase CT CHEST HIGH RESOLUTION WO CONTRAST Schedule Routine, Read Routine (OP Routine) 08/17/2024 4:22 PM CDT Chronic cough PULMONARY FUNCTION TEST (PFT) Routine 08/17/2024 4:12 PM CDT Chronic cough FL UPPER GI SERIES, SINGLE CONTRAST Schedule [...] CDT PSA DIAGNOSTIC Routine 05/21/2024 1:13 PM PROJECT SUPERINTENDENT Prostate cancer (HCC) HEPATITIS C ANTIBODY Routine 05/18/2022 9:29 AM PROJECT SUPERINTENDENT Encounter for screening for other viral diseases COLONOSCOPY Routine 11/28/2020 3:45 PM CDT from Last 3 Months or Most Recently Relevant to Health Maintenance Results * FL Modified Barium Swallow W Video (09/08/2024 9:07 AM CDT) Anatomical Region Laterality Modality Head and Neck N/A Computed Radiogr aphy, Computed Radiography 09/08/2024 10:0 1 AM CDT Narrative 09/08/2024 10:03 AM CDT EXAM DESCRIPTION: FL MODIFIED BARIUM SWALLOW EVALUATION WITH SPEECH THERAPIST REASON FOR STUDY: Pt states unpredictable dry coughing for 50 years getting worse the last 2 years RADIATION DOSE: Dose: 4.7 mGy Reference Air Kerma (Ka,r) TECHNIQUE: Fluoroscopic assistance provided to Speech Pathology Department who performed the exam. The patient was brought into the fluoro room and placed upright on a modified barium swallow chair. The patient was then given multiple consistencies mixed with barium to swallow under live fluoroscopic video guidance. COMPARISON: No prior studies are available for comparison at time of this dictation. FINDINGS: No penetration or aspiration. IMPRESSION: No evidence of penetration or aspiration. Please correlate with Speech Pathology report. THIS IS AN ELECTRONICALLY VERIFIED FINAL REPORT 09/08/2024 10:03 AM - Electronically signed by Maximiliano Brown M.D. MM: MM Report ID: [id number] Reading Location: [id number] Procedure Note Maximiliano Brown MD - 09/08/2024 EXAM DESCRIPTION: FL MODIFIED BARIUM SWALLOW EVALUATION WITH SPEECH THERAPIST REASON FOR STUDY: Pt states unpredictable dry coughing for 50 years getting worse the last 2 years RADIATION DOSE: Dose: 4.7 mGy Reference Air Kerma (Ka,r) TECHNIQUE: Fluoroscopic assistance provided to Speech Pathology Departmentwho performed the exam. The patient was brought into the fluoro room and placed upright on amodified barium swallow chair. The patient was then given multiple consistenciesmixed with barium to swallow under live fluoroscopic video guidance. COMPARISON: No prior studies are available for comparison at time of this dictation. FINDINGS: No penetration or aspiration. IMPRESSION: No evidence of penetration or aspiration. Please correlate with Speech Pathology report. THIS IS AN ELECTRONICALLY VERIFIED FINAL REPORT 09/08/2024 10:03 AM - Electronically signed by Maximiliano Brown M.D. MM: MM Report ID: [id number] Reading Location: [id number] us Alex Hernandez MD IMG FLUOROSCOPY PROCEDURES Fi nal Result * CT Chest High Resolution WO Contrast (08/17/2024 4:22 PM CDT) Anatomical Region Laterality Modality Chest N/A Computed Tomogra phy 08/19/2024 2:00 PM CDT Narrative 08/19/2024 2:11 PM CDT EXAM DESCRIPTION: CT CHEST HIGH RESOLUTION WO CONTRAST REASON FOR STUDY: r05.3 r05.3, Chronic cough for 60 years ever since had pneumonia in the 1960s TECHNIQUE: CT scan of the chest performed without intravenous contrast using helical scanning technique. Inspiratory and expiratory images were acquired. Prone inspiratory images were acquired. Reconstructed coronal and sagittal MPR images reviewed. All images stored on PACS. Automated exposure control was used as a dose optimization technique for this examination. COMPARISON: 02/26/2023 FINDINGS: LUNGS: Unchanged 3 mm pulmonary nodule in the right middle lobe (series 2, image 58). This is considered benign given stability. No masses. No acute consolidation. No bronchial wall thickening or bronchiectasis. No architectural distortion or honeycombing. No groundglass opacities or reticulation. Mild air trapping. PLEURA: No effusion. No pneumothorax. MEDIASTINUM/ANITRA: No identified masses or abnormal nodes. HEART: No pericardial effusion. Normal heart size. Aortic valve replacement. CORONARY ARTERY CALCIFICATION: Coronary artery calcification is present. VASCULATURE: Unchanged dilation of the ascending aorta measuring up to 4.8 cm in diameter. AXILLA: No adenopathy. CHEST WALL: No masses. No subcutaneous air. HARDWARE/LINES/TUBES: None. UPPER ABDOMEN: Cholelithiasis. MUSCULOSKELETAL: No acute findings. Median sternotomy wires.. Severe left T11-12 neural foraminal narrowing. OTHER: No other significant finding. IMPRESSION: No evidence of pulmonary fibrosis/interstitial lung disease. No acute pulmonary process. Unchanged dilation of the ascending aorta measuring up to 4.8 cm in diameter. Cholelithiasis. Pulmonary nodule recommendation: Per Fleischner Society Guidelines, no follow-up needed if patient is low-risk. Non-contrast chest CT can be considered in 12 months if patient is high-risk. THIS IS AN ELECTRONICALLY VERIFIED FINAL REPORT 08/19/2024 2:11 PM - Electronically signed by Maximiliano Brown M.D. MM: MM Report ID: [id number] Reading Location: [place] [address] Procedure Note Maximiliano Brown MD - 08/19/2024 EXAM DESCRIPTION: CT CHEST HIGH RESOLUTION WO CONTRAST REASON FOR STUDY: r05.3 r05.3, Chronic cough for 60 years ever since had pneumonia in the 1960's TECHNIQUE: CT scan of the chest performed without intravenous contrastusing helical scanning technique. Inspiratory and expiratory images wereacquired. Prone inspiratory images were acquired. Reconstructed coronal andsagittal MPR images reviewed. All images stored on PACS. Automated exposurecontrol was used as a dose optimization technique for this examination. COMPARISON: 02/26/2023 FINDINGS: LUNGS: Unchanged 3 mm pulmonary nodule in the right middle lobe (series 2, image 58). This is considered benign given stability. Nomasses. No acute consolidation. No bronchial wall thickening or bronchiectasis.No architectural distortion or honeycombing. No groundglass opacities or reticulation. Mild air trapping. PLEURA: No effusion. No pneumothorax. MEDIASTINUM/ANITRA: No identified masses or abnormal nodes. HEART: No pericardial effusion. Normal heart size. Aortic valve replacement. CORONARY ARTERY CALCIFICATION: Coronary artery calcification is present. VASCULATURE: Unchanged dilation of the ascending aorta measuring up to4.8 cm in diameter. AXILLA: No adenopathy. CHEST WALL: No masses. No subcutaneous air. HARDWARE/LINES/TUBES: None. UPPER ABDOMEN: Cholelithiasis. MUSCULOSKELETAL: No acute findings. Median sternotomy wires.. Severeleft T11-12 neural foraminal narrowing. OTHER: No other significant finding. IMPRESSION: No evidence of pulmonary fibrosis/interstitial lung disease. No acute pulmonary process. Unchanged dilation of the ascending aorta measuring up to 4.8 cm indiameter. Cholelithiasis. Pulmonary nodule recommendation: Per Fleischner Society Guidelines, no follow-up needed if patient is low-risk. Non-contrast chest CT can be considered in 12 months if patient is high-risk. THIS IS AN ELECTRONICALLY VERIFIED FINAL REPORT 08/19/2024 2:11 PM - Electronically signed by Maximiliano Brown M.D. MM: MM Report ID: [id number] Reading Location: [place] [address] Alex Hernandez MD IM CT PROCEDURES Final Resul t * (ABNORMAL) Pulmonary Function Test - (08/17/2024 4:12 PM CDT) FVC PRE 4.05 3.02 - 5.22 L [facility] FEV1 PRE 3.23 2.19 - 3.91 L [facility] [id number] 79.75 61.54 - 87.86 % [facility] [id number]% PRE 3.05 0.94 - 4.19 L/s [facility] PEF PRE 10.51(A) 5.94 - 9.92 L/s [facility] DLCOc SB 21.49 19.66 - 33.52 ml/(min*mm Hg) [facility] DLCO/VA PRE 3.71 2.58 - 4.88 ml/(min*mm Hg*L) [facility] VA 5.79(A) 6.98 - 6.98 L [facility] TLC PRE 6.09 5.97 - 8.28 L [facility] VC PRE 4.05 3.23 - 5.07 L [facility] IC PRE 3.07(A) 3.13 - 3.13 L [facility] FRC PL PRE 3.01 2.74 - 4.71 L [facility] ERV PRE 0.98(A) 1.02 - 1.02 L [facility] RV PRE 2.04 2.03 - 3.38 L [facility] VTG 3.25 L [facility] RAW PRE 1.26(A) 3.06 - 3.06 cmH2O*s/L [facility] Anatomical Region Laterality Modality PFT 08/17/2024 3:42 PM CDT Narrative 08/17/2024 4:50 PM CDT The study showed good patient effort, acceptable and reproducible. Spirometry was unremarkable study. Flow volume loops was unremarkable study. Lung volumes was unremarkable study. Diffusion was unremarkable study. Oxygen saturation was 97% on room air. No previous data to compare, clinical correlation is recommended. Electronically signed, Mahamed Altman MD,[facility], [facility] Pulmonary, Critical Care and Sleep Medicine us Alex Hernandez MD PFT ORDERABLES Final Result * FL Upper GI Series, Single Contrast [...] Christofer Hauser M.D. LORA: LORA Report ID: [id number] Reading Location: [id number] Procedure Note Christofer Hauser MD - 08/05/2024 [...] Christofer Hauser M.D. LORA: LORA Report ID: [id number] Reading Location: [place] [address] Alex Hernandez MD IM FLUOROSCOPY PROCEDURES Fi nal Result * Differential, auto (07/31/2024 12:18 PM CDT) Neutrophil abs 3.66 1.50 - 6.50 K/cumm Comment:Testing performed by : [address] [address] Imm gran abs 0.01 0.00 - 0.10 K/cumm JHONNY Comment:Testing performed by : [address] [address] Lymphocyte abs 1.39 0.80 - 3.30 K/cumm JHONNY Comment:Testing performed by : [address] [address] Monocyte abs 0.59 0.20 - 0.80 K/cumm [facility] Comment:Testing performed by : [address] [address] Eosinophil abs 0.30 0.00 - 0.50 K/cumm [facility] Comment:Testing performed by : [address], [place]., [address] Basophil abs 0.03 0.00 - 0.10 K/cumm [facility] Comment:Testing performed by : [address] [address] Neutrophil pct 61.2 % [facility] Comment: Interpretive Data Percent cell count reference ranges are not reported, since discordance with absolute values may lead to misinterpretation of CBC data. Current Interpretive Data was last revised on 2017. Testing performed by: [address] [address] Imm gran pct 0.2 % [facility] Comment: Interpretive Data Percent cell count reference ranges are not reported, since discordance with absolute values may lead to misinterpretation of CBC data. Current Interpretive Data was last revised on 2017. Testing performed by: [address] [address] Lymphocyte pct 23.2 % [facility] Comment: Interpretive Data Percent cell count reference ranges are not reported, since discordance with absolute values may lead to misinterpretation of CBC data. Current Interpretive Data was last revised on 2017. Testing performed by: [address] [address] Monocyte pct 9.9 % [facility] Comment: Interpretive Data Percent cell count reference ranges are not reported, since discordance with absolute values may lead to misinterpretation of CBC data. Current Interpretive Data was last revised on 2017. Testing performed by: [address] [address] Eosinophil pct 5.0 % [facility] Comment: Interpretive Data Percent cell count reference ranges are not reported, since discordance with absolute values may lead to misinterpretation of CBC data. Current Interpretive Data was last revised on 2017. Testing performed by: [address] [address] Basophil pct 0.5 % [facility] Comment: Interpretive Data Percent cell count reference ranges are not reported, since discordance with absolute values may lead to misinterpretation of CBC data. Current Interpretive Data was last revised on 2017. Testing performed by: [address] [address] Blood 07/31/2024 12:1 8 PM CDT 07/31/2024 12:35 PM CDT us Alex Hernandez MD LAB BLOOD ORDERABLES Final Re sult J[facility]ONNY [address] [facility] Department [place] [address] * (ABNORMAL) Urinalysis reflex to microscopic and culture Urine (07/31/2024 12:18 PM CDT) Color, ur Yellow Yellow Comment:Testing performed by : [address] [address] Clarity, ur Clear Clear JHONNY Comment:Testing performed by : [address] [address] Specific gravity, ur 1.026 1.003 - 1.030 [facility] Comment:Testing performed by : [address] [address] pH, urine 5.5 [facility] Comment: Interpretive Data U rine pH is affected by diet, medications, systemic acid-base disturbances, and renal tubular function. pH may affect urinary stone formation. For example, urine pH below 6.0 may help reduce the tendency for calcium phosphate stones and pH greater than 6.0 may reduce the tendency for uric acid stone formation. Source: [facility] Current Interpretive Data was last revised on 2017 Testing performed by: [address] [address] Protein, ur ql Trace(A) Negative [facility] RODRIGUE[facility] Comment:Testing performed by : [address] [address] Glucose, ur ql Negative Negative [facility] RODRIGUE[facility] Comment:Testing performed by : [address], [place]., [address] Ketones, ur Trace(A) Negative [facility] RODRIGUEZ Comment:Testing performed by : [facility], [address] [place] [address], [place]., [address] Bilirubin, ur Negative Negative JHONNY Comment:Testing performed by : [address], [place]., [address] Blood, ur Negative Negative JHONNY Comment:Testing performed by : [address], [place]., [address] Urobilinogen, ur 2.0(A) <2.0 mg/dL [facility] RODRIG[facility] Comment:Testing performed by : [address], [place]., [address] Nitrite, ur Negative Negative JHONNY Comment:Testing performed by : [address], [place]., [address] Leukocyte esterase, ur Negative Negative JHONNY Comment:Testing performed by : [address], [place]., [address] UA reflex comment Reflex to microscopic UA will be performed. JHONNY Comment:Testing performed by : [address], [place]., [address] Urine 07/31/2024 12:1 8 PM CDT 07/31/2024 12:32 PM CDT Alex Hernandez MD LAB MICROBIOLOGY - GENERAL OR DERABLES Final Result J[facility]ONNY [address] [facility] Department of Laboratories [place], [place] [id number] * CBC with auto differential (07/31/2024 12:18 PM CDT) WBC 5.98 3.80 - 9.90 K/cumm Comment:Testing performed by : [address], [place]., [address] Hgb 14.4 13.0 - 17.5 g/dL [facility] RODRIGUEZ Comment:Testing performed by : [address], [address] Hct 43.0 38.9 - 50.3 % [facility]NY Comment:Testing performed by : [address], [address] Plt 166 150 - 400 K/cumm [facility] Comment:Testing performed by : [address], [address] MPV 10.7 9.1 - 12.3 fL [facility]ONNY Comment:Testing performed by : [address], [address] RBC 4.61 4.30 - 5.80 M/cumm [facility] Comment:Testing performed by : [address], [address] MCV 93.3 81.3 - 96.4 fL [facility]ONNY Comment:Testing performed by : [address], [address] MCH 31.2 27.1 - 33.3 pg JHONNY Comment:Testing performed by : [address], [address] MCHC 33.5 32.3 - 35.7 g/dL JHONNY Comment:Testing performed by : [address], [address] RDW CV 12.7 11.1 - 14.9 % JHONNY Comment:Testing performed by : [address], [address] RDW SD 43.1 35.7 - 48.1 fL JHONNY Comment:Testing performed by : [address], [address] NRBC abs 0.00 0.00 - 0.01 K/cumm J[facility]ONNY Comment:Testing performed by : [address], [address] Blood 07/31/2024 12:1 8 PM CDT 07/31/2024 12:35 PM CDT us Alex Hernandez MD LAB BLOOD ORDERABLES Final Re sult [facility] [address] * (ABNORMAL) Urinalysis, microscopic only (07/31/2024 12:18 PM CDT) WBC, ur 0-5 0 - 5 /HPF Comment:Testing performed by : [address] [address] RBC, ur 0-2 0 - 2 /HPF JHONNY Comment:Testing performed by : [facility], [address] [place] [address]., [address] Mucous, ur Present(A) JHONNY Comment:Testing performed by : [address] [address] Culture Reflex Comment Reflex conditions for urine culture (WBC >10) not met. JHONNY Comment:Testing performed by : [address] [address] Urine 07/31/2024 12:1 8 PM CDT 07/31/2024 12:32 PM CDT us Alex Hernandez MD LAB URINE ORDERABLES Final Re sult Performing Organization Address [facility] Co de Phone Number [address] [address] * TSH (07/31/2024 12:18 PM CDT) Thyroid Stimulating Hormone 1.62 0.30 - 4.20 mcIUnit/mL Comment:Testing performed by : [address] [address] Blood 07/31/2024 12:1 8 PM CDT 07/31/2024 12:35 PM CDT Alex Hernandez MD LAB BLOOD ORDERABLES Final Re sult Performing Organization Address [facility] Co de Phone Number ART[facility] [address] * T4, free (07/31/2024 12:18 PM CDT) Pathologist [facility] [place] Free T4 1.11 0.90 - 1.70 ng/dL Comment:Testing performed by : [address] [address] Blood 07/31/2024 12:1 8 PM CDT 07/31/2024 12:35 PM CDT Alex Hernandez MD LAB BLOOD ORDERABLES Final Re sult Performing Organization Address City/[facility] Co de Phone Number ATR[facility] [place] [address] * Hemoglobin A1c (07/31/2024 12:18 PM CDT) [facility] Hgb A1C 5.4 4.0 - 5.6 % Comment:Testing performed by : [address] [address] Estimated Average Glucose 108 mg/dL [facility] Comment: The ADA recommends reporting an estimated Average Glucose (eAG) with all Hemoglobin A1c results using the equation derived from a study of 507 normal and diabetic adults. Minority populations were underrepresented and children were not included. (Diabetes Care 31:5075-8355, 2008). The eAG is not equivalent to a fasting glucose. Testing performed by: [address] [address] Blood 07/31/2024 12:1 8 PM CDT 07/31/2024 12:35 PM CDT Alex Hernandez MD LAB BLOOD ORDERABLES Final Re sult Performing Organization Address City/[facility] Co de Phone Number [facility] [address] [facility] [place] [address] * Folate (07/31/2024 12:18 PM CDT) [facility] Folic acid >20.0 >=5.0 ng/mL Comment:Testing performed by : [address] [address] Blood 07/31/2024 12:1 8 PM CDT 07/31/2024 12:35 PM CDT Alex Hernandez MD LAB BLOOD ORDERABLES Final Re sult Performing Organization Address City/[facility]/ZIP Co de Phone Number [address] [address] * Vitamin B12 (07/31/2024 12:18 PM CDT) Vitamin B12 609 230 - 1,250 pg/mL Comment:Testing performed by : [address] [address] Blood 07/31/2024 12:1 8 PM CDT 07/31/2024 12:35 PM CDT Alex Hernandez MD LAB BLOOD ORDERABLES Final Re sult Performing Organization Address [facility] Co de Phone Number [address] [address] * (ABNORMAL) Lipid panel (07/31/2024 12:18 PM [...] last revised on 2017. Testing performed by: [address] [address] Triglycerides 323(H) <=149 mg/dL [facility] Comment: Interpretive Data Ages < or = [...] last revised on 2017. Testing performed by: [address] [address] HDL 53 >=40 mg/dL JHONNY Comment: Interpretive [...] last revised on 2017. Testing performed by: [facility], [address] [place] [address]., [id number] LDL, calculated 103 <=129 mg/dL JHONNY Comment: [...] 3. Mookie Gaviria et al. AFSANEH Cardiol. 2020 August 13;5(5):540-548. doi: 10.1001/jamacardio.2020.0013 Current Interpretive Data was last revised on 2023. Testing performed by: [address] [address] Non-HDL Cholesterol 157 mg/dL JHONNY RODRIGUEZ Comment: [...] last revised on 2017. Testing performed by: [address] [address] Chol/HDL ratio 4 JHONNY Comment:Testing performed by : [address] [address] Blood 07/31/2024 12:1 8 PM CDT 07/31/2024 12:35 PM CDT us Alex Hernandez MD LAB BLOOD ORDERABLES Final Re sult JHONNY [address] [facility] Department [place] [address] * PSA diagnostic (05/21/2024 1:13 PM PROJECT SUPERINTENDENT) PSA-Total <0.10 <=6.20 ng/mL Comment: Interpretive Data [...] data last revised 21. Testing performed by: [facility], [address] [place] [address], [place]., [address] Blood 05/21/2024 1:13 PM PROJECT SUPERINTENDENT 05/21/2024 2:21 PM PROJECT SUPERINTENDENT Jose Mayfield MD LAB BLOOD ORDERABLES Final Resul t Performing Organization Address [facility] Co de Phone Number [facility] [address] [facility] [place] [address] * Hepatitis C antibody (05/18/2022 9:29 AM PROJECT SUPERINTENDENT) Hep C Ab Nonreactive Nonreactive JHONNY Comment: Interpretive Data Nonreactive: Antibodies to HCV [...] revised on 2019. Blood 05/18/2022 9:29 AM PROJECT SUPERINTENDENT 05/18/2022 12:45 PM PROJECT SUPERINTENDENT Bernard Jackman MD LAB MICROBIOLOGY - G ENERAL ORDERABLES Final Result Performing Organization Address [facility] de Phone Number [place] [phone] [facility] [employer] [place] [address] * Colonoscopy (07/12/2015) Anatomical Region Laterality Modality Other Historical Provider ENDOSCOPY PROCEDURES Rachel l Result from Last 3 Months or Most Recently Relevant to Health Maintenance Insurance [employer] [facility] MEDICARE HMO [employer] [facility] [place] [place] [id number] [employer] Care Teams Solar Photovoltaic Installer Relationship Specialty Start Date End Date Bernard Jackman MD [address] [facility] [place] [address] PCP - General 12/06/18
--- OUTSIDE RECORDS SUMMARY | 2024-09-25 00:59 | XMS_ITS | Encounter Summary ---
Author Organization [facility] Care Team Providers Care Grinding Room Supervisor Name Role Phone Miscellaneous, Not In File Primary Care Provider Unavailable Unknown, Notinfile Primary Care Provider Unavail Bernard Choi MD Primary Care Provid er Unknown, Notinfile Primary Care Provider Unavail Bernard Choi MD Primary Care Provid er Bernard Jackman MD Primary Care Provid er Edyta Saleh LPN Unavailable [phone] Encounter Details Date Type Department Care Team (Latest Contact Info) Description 02/07/2017 Orders Only [facility] CLINCONV ProviderRyan MD [address] [place] [id number] Social History Tobacco Use Types Packs/Day Years Used Date Smoking Tobacco: Never Sex and Gender Information Value Date Recorded Sex Assigned at Not on file Legal Sex Male 5:55 AM INSTRUCTOR [employer]ODUCT INS[employer] Gender Identity Male 02/18/2022 7:25 PM [employer]CTOR [employer] Sexual Orientation Not on file documented as [...] COVID: Suspected 03/07/2021 03/07/2021 03/07/2021 9:43 AM INSTRUCTOR [employer] COVID: Suspected 03/07/2021 03/07/2021 03/07/2021 8:41 PM INSTRUCTOR [employer]ODUCT INSPECTION COVID: Suspected 04/04/2023 04/04/2023 04/04/2023 6:43 PM INSTRUCTOR [employer]ODUCT INSPECTION COVID: Suspected 04/04/2023 04/04/2023 04/04/2023 10:36 PM INSTRUCTOR [employer] documented as of this encounter Care Teams Grinding Room Supervisor Relationship Specialty Start Date End Date Miscellaneous, Not In File PCP - General 07/13/16 Unknown, Notinfile PCP - General 07/05/17 07/18/17 Bernard Jackman MD [address] [place], [place] [id number] PCP - General 07/19/17 07/19/17 Unknown, Notinfile PCP - General 07/20/17 07/23/17 Bernard Jackman MD [address] [place], [place] [id number] PCP - General 07/24/17 12/05/18 Bernard Jackman MD [address] [place], [place] [id number] PCP - General 12/06/18 Edyta Saleh, SUPERVISOR NURSE [address] [place] [address] Pre Billing Clinician 07/20/20 07/20/20 documented as of this encounter
--- OUTSIDE RECORDS SUMMARY | 2024-09-25 00:59 | XMS_ITS | Clinical Summary ---
Author Organization [facility] Address [address] [place] [address] Care Team Providers Care Watch And Clock Maker And Repairer Name Role Phone Bernard Jackman MD Primary [...] Dr. Terrell and KEDAR Cardenas contacted via [employer] to scheduled post op follow up appointment. PLMD (periodic limb movement disorder) Assessment & Plan (05/25/2024 8:47 AM ADMINISTRATIVE VOLUNTEER): Patient will continue with Requip 1 mg p.o. at bedtime. Assessment & Plan (04/25/2023 11:28 AM ADMINISTRATIVE VOLUNTEER): PLMS are under control with Requip 1 mg at bedtime. Assessment & Plan (04/19/2022 12:03 PM ADMINISTRATIVE VOLUNTEER): Patient will continue with Requip 1 mg p.o. at bedtime. Assessment & Plan (02/19/2022 12:50 PM ADMINISTRATIVE VOLUNTEER): Patient will continue with Requip 1 mg [...] 10/10/2012 Assessment & Plan (05/25/2024 8:47 AM ADMINISTRATIVE VOLUNTEER): Patient will continue with CPAP therapy at 6-20 cm water pressure. I have sent an order for the patient to receive the correct hose. The patient does have a Angelia machine a not a ResMed. Patient's DME is [employer]. Assessment & Plan (04/25/2023 11:28 AM ADMINISTRATIVE VOLUNTEER): The patient continues to benefit from the auto titrating CPAP unit with a range of 6-20 cm water pressure for ongoing symptoms of DELFINA. His DME supplier is [employer]. He will follow up here in 1 year. Assessment & Plan (04/19/2022 12:03 PM ADMINISTRATIVE VOLUNTEER): Patient will continue with CPAP therapy at 6-20 cm water pressure. Patient's DME is [employer]. Assessment & Plan (02/19/2022 12:51 PM ADMINISTRATIVE VOLUNTEER): Patient will continue with CPAP therapy at [...] humidity and a full set of supplies. The [facility] provider Plus. The patient and I also [...] Date Type Department Care Team Description 09/08/2024 9:00 AM CDT Therapy [facility] Bld[facility] 1 Outptnt Speech Therapy [address] [place] [address] [place] [address] Rosanna Brown, PANDA Dysphagia, unspecified type [R13.10] (Primary Dx) 09/08/2024 8:33 AM CDT - 09/08/2024 11:59 PM CDT Hospital Encounter [facility] [address] [place] [address] Chronic cough; Dysphagia, oropharyngeal phase Discharge Disposition: Discharge to home or self care 08/17/2024 3:40 PM CDT - 08/17/2024 11:59 PM CDT [place] [facility] [place] [place] [address] [place] [address] Chronic cough Discharge Disposition: Discharge to home or self care 08/17/2024 3:39 PM CDT - 08/17/2024 11:59 PM CDT Hospital Encounter [facility] [address] [place] [address] Chronic cough Discharge Disposition: Discharge to home or self care 08/05/2024 8:31 AM CDT - 08/05/2024 11:59 PM CDT Hospital Encounter [facility] [address] [place] [address] Chronic cough; Dysphagia, oropharyngeal phase Discharge Disposition: Discharge to home or self care 07/31/2024 12:00 PM CDT Lab [facility] [address] [place] [address] from Last 3 Months Immunizations Immunization Administration [...] histor y of hyperlipidemia - (Added by TW Conv)/Family history of hyperlipidemia - (Added by TW Conv) Lung cancer Mother's Brother 1 Family [...] on file Legal Sex Male 5:55 AM ADMINISTRATIVE VOLUNTEER Gender Identity Male 02/18/2022 7:25 PM ADMINISTRATIVE VOLUNTEER Sexual Orientation Not on file Obstetrics History Last Filed Vital Signs Vital Sign Reading Time Taken Comments Blood Pressure 114/64 05/25/2024 7:56 AM ADMINISTRATIVE VOLUNTEER Pulse 64 05/25/2024 7:56 AM ADMINISTRATIVE VOLUNTEER Temperature 36.9 C (98.4 F) 05/25/2024 7:56 AM ADMINISTRATIVE VOLUNTEER Respiratory Rate 18 05/25/2024 7:56 AM ADMINISTRATIVE VOLUNTEER Oxygen Saturation 92% 05/25/2024 7:56 AM ADMINISTRATIVE VOLUNTEER Inhaled Oxygen Concentration - - Weight 109.8 kg (242 lb) 05/26/2024 9:19 AM ADMINISTRATIVE VOLUNTEER Height 177.8 cm (5' 10) 05/26/2024 9:19 AM ADMINISTRATIVE VOLUNTEER Body Mass Index 34.72 05/26/2024 9:19 AM ADMINISTRATIVE VOLUNTEER Plan of Treatment Health Maintenance Due Date Last Done Comments DTaP/Tdap/Td Vaccine (1 - Tdap) 1961 Hepatitis B Screening 1968 Covid-19 Vaccine (5 - 2023-2 5 season) 2023 02/08/2023, 02/09/2021, 06/22/2020, Additional [...] Screening Completed 05/18/2022 Zoster Vaccine Completed 08/06/2022, 05/11/2022 Pneumococcal vaccine 65+ Completed 10/05/2022 Influenza Vaccine Completed 02/07/2024, , 02/02/2022, Additional history exists Prostate Cancer Screening-PSA Discontinued , 02/28/2024, 04/17/2023, Additional history exists Medical Devices Implanted Type Area Stack Attendant Device Identifier Shelf Expiration Date Model / Serial / Lot [employer] Progrip [id number] Self Fixate Flat Sheet Mesh Surgical Marilyn Pet Latex Free [id number] - [id number] Implanted:Qty : 1 on 08/28/2021 by Jose Galloway MD at [facility] N/A: Umbilical [employer] [id number] 05/15/2024 [id number] / / [id number] Explanted Type Area Stack Attendant Device Identifier Shelf Expiration Date Model / Serial / Lot Medtronic Inc Progrip [id number] Self Fixate Flat Sheet Mesh Surgical Marilyn Pet Latex Free [id number] - [id number] Explanted:Qty : 1 on 08/28/2021 at [facility] N/A: Umbilical [employer] [id number] 05/15/2024 [id number] / / [id number] Procedures Procedure Name Priority Date/Time Associated Diagnosis [...] CDT PSA DIAGNOSTIC Routine 05/21/2024 1:13 PM ADMINISTRATIVE VOLUNTEER Prostate cancer (HCC) HEPATITIS C ANTIBODY Routine 05/18/2022 9:29 AM ADMINISTRATIVE VOLUNTEER Encounter for screening for other viral diseases [...] Maximiliano Brown M.D. MM: MM Report ID: [id number] Reading Location: [id number] Procedure Note Maximiliano Brown MD - 09/08/2024 [...] Maximiliano Brown M.D. MM: MM Report ID: [id number] Reading Location: [id number] Alex Hernandez MD IMG FLUOROSCOPY PROCEDURES Fi [...] Maximiliano Brown M.D. MM: MM Report ID: [id number] Reading Location: [place] [address] Procedure Note Maximiliano Brown MD - 08/19/2024 [...] Maximiliano Brown M.D. MM: MM Report ID: [id number] Reading Location: [place] [address] Alex Hernandez MD IM CT PROCEDURES Final Resul t * (ABNORMAL) Pulmonary Function Test - (08/17/2024 4:12 PM CDT) FVC PRE 4.05 3.02 - 5.22 L [facility] FEV1 PRE 3.23 2.19 - 3.91 L [facility] SLA5HSU-VUQ 79.75 61.54 - 87.86 % [facility] MYP65-49% PRE 3.05 0.94 - 4.19 L/s [facility] PEF PRE 10.51(A) 5.94 - 9.92 L/s [facility] DLCOc SB 21.49 19.66 - 33.52 ml/(min*mm Hg) [facility] DLCO/VA PRE 3.71 2.58 - 4.88 ml/(min*mm Hg*L) [facility] VA 5.79(A) 6.98 - 6.98 L [facility] TLC PRE 6.09 5.97 - 8.28 L [facility] VC PRE 4.05 3.23 - 5.07 L [facility] IC PRE 3.07(A) 3.13 - 3.13 L [facility] FRC PL PRE 3.01 2.74 - 4.71 L [facility] ERV PRE 0.98(A) 1.02 - 1.02 L [facility] RV PRE 2.04 2.03 - 3.38 L [facility] VTG 3.25 L [facility] RAW PRE 1.26(A) 3.06 - 3.06 cmH2O*s/L [facility] Anatomical Region Laterality Modality PFT 08/17/2024 3:42 PM CDT Narrative 08/17/2024 4:50 PM CDT The study showed good patient effort, acceptable and reproducible. Spirometry was unremarkable study. Flow volume loops was unremarkable study. Lung volumes was unremarkable study. Diffusion was unremarkable study. Oxygen saturation was 97% on room air. No previous data to compare, clinical correlation is recommended. Electronically signed, Mahamed Altman MD,[facility] Pulmonary, Critical Care and Sleep Medicine [...] Christofer Hauser M.D. LORA: LORA Report ID: [id number] Reading Location: [id number] Procedure Note Christofer Hauser MD - 08/05/2024 [...] Christofer Hauser M.D. LORA: LORA Report ID: [id number] Reading Location: [place] [address] Alex Hernandez MD IM FLUOROSCOPY PROCEDURES Fi nal Result * Differential, auto (07/31/2024 12:18 PM CDT) Neutrophil abs 3.66 1.50 - 6.50 K/cumm Comment:Testing performed by : [address] [address] Imm gran abs 0.01 0.00 - 0.10 K/cumm JHONNY Comment:Testing performed by : [address] [address] Lymphocyte abs 1.39 0.80 - 3.30 K/cumm JHONNY Comment:Testing performed by : [address] [address] Monocyte abs 0.59 0.20 - 0.80 K/cumm [facility] Comment:Testing performed by : [address] [address] Eosinophil abs 0.30 0.00 - 0.50 K/cumm [facility] Comment:Testing performed by : [address] [address] Basophil abs 0.03 0.00 - 0.10 K/cumm [facility] Comment:Testing performed by : [address] [address] Neutrophil pct 61.2 % [facility] Comment: Interpretive Data Percent cell count reference ranges are not reported, since discordance with absolute values may lead to misinterpretation of CBC data. Current Interpretive Data was last revised on 2017. Testing performed by: [address] [address] Imm gran pct 0.2 % [facility] Comment: Interpretive Data Percent cell count reference ranges are not reported, since discordance with absolute values may lead to misinterpretation of CBC data. Current Interpretive Data was last revised on 2017. Testing performed by: [address] [address] Lymphocyte pct 23.2 % [facility] Comment: Interpretive Data Percent cell count reference ranges are not reported, since discordance with absolute values may lead to misinterpretation of CBC data. Current Interpretive Data was last revised on 2017. Testing performed by: [address] [address] Monocyte pct 9.9 % JHONNY Comment: Interpretive Data Percent cell count reference ranges are not reported, since discordance with absolute values may lead to misinterpretation of CBC data. Current Interpretive Data was last revised on 2017. Testing performed by: [address] [address] Eosinophil pct 5.0 % JHONNY Comment: Interpretive Data Percent cell count reference ranges are not reported, since discordance with absolute values may lead to misinterpretation of CBC data. Current Interpretive Data was last revised on 2017. Testing performed by: [address] [address] Basophil pct 0.5 % JHONNY Comment: Interpretive Data Percent cell count reference ranges are not reported, since discordance with absolute values may lead to misinterpretation of CBC data. Current Interpretive Data was last revised on 2017. Testing performed by: [address] [address] Blood 07/31/2024 12:1 8 PM CDT 07/31/2024 12:35 PM CDT us Alex Hernandez MD LAB BLOOD ORDERABLES Final Re sult JHONNY [address] [facility] Department of Laboratories [place], [place] [id number] * (ABNORMAL) Urinalysis reflex to microscopic and culture Urine (07/31/2024 12:18 PM CDT) Color, ur Yellow Yellow Comment:Testing performed by : [address] [address] Clarity, ur Clear Clear JHONNY Comment:Testing performed by : [address] [address] Specific gravity, ur 1.026 1.003 - 1.030 JHONNY RODRIGUEZ Comment:Testing performed by : [address] [address] pH, urine 5.5 JHONNY Comment: Interpretive Data U rine pH is affected by diet, medications, systemic acid-base disturbances, and renal tubular function. pH may affect urinary stone formation. For example, urine pH below 6.0 may help reduce the tendency for calcium phosphate stones and pH greater than 6.0 may reduce the tendency for uric acid stone formation. Source: [facility] [employer] Current Interpretive Data was last revised on 2017 Testing performed by: [facility], [address] [place] [address], [place]., [address] Protein, ur ql Trace(A) Negative JHONNY Comment:Testing performed by : [facility], [address] [place] [address], [place]., [address] Glucose, ur ql Negative Negative JHONNY Comment:Testing performed by : [address], [place]., [address] Ketones, ur Trace(A) Negative JHONNY Comment:Testing performed by : [address], [place]., [address] Bilirubin, ur Negative Negative JHONNY Comment:Testing performed by : [address], [place]., [address] Blood, ur Negative Negative JHONNY Comment:Testing performed by : [address], [place]., [address] Urobilinogen, ur 2.0(A) <2.0 mg/dL JHONNY Comment:Testing performed by : [address], [place]., [address] Nitrite, ur Negative Negative JHONNY Comment:Testing performed by : [address] [address] Leukocyte esterase, ur Negative Negative JHONNY Comment:Testing performed by : [address], [place]., [address] UA reflex comment Reflex to microscopic UA will be performed. JHONNY Comment:Testing performed by : [address], [place]., [address] Urine 07/31/2024 12:1 8 PM CDT 07/31/2024 12:32 PM CDT us Alex Hernandez MD LAB MICROBIOLOGY - GENERAL OR DERABLES Final Result JHONNY [address] [facility] Department [place] [address] * CBC with auto differential (07/31/2024 12:18 PM CDT) WBC 5.98 3.80 - 9.90 K/cumm Comment:Testing performed by : [address] [address] Hgb 14.4 13.0 - 17.5 g/dL JHONNY Comment:Testing performed by : [address] [address] Hct 43.0 38.9 - 50.3 % JHONNY Comment:Testing performed by : [address] [address] Plt 166 150 - 400 K/cumm JHONNY Comment:Testing performed by : [address] [address] MPV 10.7 9.1 - 12.3 fL JHONNY Comment:Testing performed by : [address] [address] RBC 4.61 4.30 - 5.80 M/cumm JHONNY Comment:Testing performed by : [address] [address] MCV 93.3 81.3 - 96.4 fL JHONNY Comment:Testing performed by : [address] [address] MCH 31.2 27.1 - 33.3 pg JHONNY Comment:Testing performed by : [address] [address] MCHC 33.5 32.3 - 35.7 g/dL JHONNY Comment:Testing performed by : [address] [address] RDW CV 12.7 11.1 - 14.9 % JHONNY Comment:Testing performed by : [address] [address] RDW SD 43.1 35.7 - 48.1 fL JHONNY Comment:Testing performed by : [address] [address] NRBC abs 0.00 0.00 - 0.01 K/cumm JHONNY Comment:Testing performed by : [address] [address] Blood 07/31/2024 12:1 8 PM CDT 07/31/2024 12:35 PM CDT Alex Hernandez MD LAB BLOOD ORDERABLES Final Re sult Performing Organization Address [facility] Co de Phone Number [facility] [place] [employer] [address] * (ABNORMAL) Urinalysis, microscopic only (07/31/2024 12:18 PM CDT) WBC, ur 0-5 0 - 5 /HPF Comment:Testing performed by : [address] [address] RBC, ur 0-2 0 - 2 /HPF JHONNY Comment:Testing performed by : [address] [address] Mucous, ur Present(A) JHONNY Comment:Testing performed by : [address] [address] Culture Reflex Comment Reflex conditions for urine culture (WBC >10) not met. JHONNY Comment:Testing performed by : [address] [address] Urine 07/31/2024 12:1 8 PM CDT 07/31/2024 12:32 PM CDT us Alex Hernandez MD LAB URINE ORDERABLES Final Re sult Performing Organization Address [facility] Co de Phone Number JHONNY [address] [facility] [place] [employer] [address] * TSH (07/31/2024 12:18 PM CDT) Thyroid Stimulating Hormone 1.62 0.30 - 4.20 mcIUnit/mL Comment:Testing performed by : [address] [address] Blood 07/31/2024 12:1 8 PM CDT 07/31/2024 12:35 PM CDT Alex Hernandez MD LAB BLOOD ORDERABLES Final Re sult Performing Organization Address [facility] Co de Phone Number [address] [address] * T4, free (07/31/2024 12:18 PM CDT) Free T4 1.11 0.90 - 1.70 ng/dL Comment:Testing performed by : [address] [address] Blood 07/31/2024 12:1 8 PM CDT 07/31/2024 12:35 PM CDT Alex Hernandez MD LAB BLOOD ORDERABLES Final Re sult Performing Organization Address [facility] de Phone Number [address] [address] * Hemoglobin A1c (07/31/2024 12:18 PM CDT) Pathologist [facility] [place] Hgb A1C 5.4 4.0 - 5.6 % Comment:Testing performed by : [address] [address] Estimated Average Glucose 108 mg/dL JHONNY Comment: The ADA recommends reporting an estimated Average Glucose (eAG) with all Hemoglobin A1c results using the equation derived from a study of 507 normal and diabetic adults. Minority populations were underrepresented and children were not included. (Diabetes Care 31:2924-6446, 2008). The eAG is not equivalent to a fasting glucose. Testing performed by: [address] [address] Blood 07/31/2024 12:1 8 PM CDT 07/31/2024 12:35 PM CDT Alex Hernandez MD LAB BLOOD ORDERABLES Final Re sult Performing Organization Address [facility] Co de Phone Number JHONNY [address] [place] [address] * Folate (07/31/2024 12:18 PM CDT) Folic acid >20.0 >=5.0 ng/mL Comment:Testing performed by : [facility], [address] [place] [address]., [address] Blood 07/31/2024 12:1 8 PM CDT 07/31/2024 12:35 PM CDT Alex Hernandez MD LAB BLOOD ORDERABLES Final Re sult Performing Organization Address [facility] Co de Phone Number ARTUR[address] [place] [address] * Vitamin B12 (07/31/2024 12:18 PM CDT) Vitamin B12 609 230 - 1,250 pg/mL Comment:Testing performed by : [address] [address] Blood 07/31/2024 12:1 8 PM CDT 07/31/2024 12:35 PM CDT Alex Hernandez MD LAB BLOOD ORDERABLES Final Re sult Performing Organization Address [facility] Co de Phone Number ARTUR[address] [place] [address] * (ABNORMAL) Lipid panel (07/31/2024 12:18 PM [...] last revised on 2017. Testing performed by: [address] [address] Triglycerides 323(H) <=149 mg/dL JHONNY Comment: Interpretive [...] last revised on 2017. Testing performed by: [address] [address] HDL 53 >=40 mg/dL JHONNY Comment: Interpretive [...] last revised on 2017. Testing performed by: [address] [address] LDL, calculated 103 <=129 mg/dL JHONNY Comment: [...] last revised on 2023. Testing performed by: [address] [address] Non-HDL Cholesterol 157 mg/dL JHONNY RODRIGUEZ Comment: [...] last revised on 2017. Testing performed by: [address] [address] Chol/HDL ratio 4 HJONNY Comment:Testing performed by : [address] [address] Blood 07/31/2024 12:1 8 PM CDT 07/31/2024 12:35 PM CDT us Alex Hernandez MD LAB BLOOD ORDERABLES Final Re sult JHONNY RODRIGUEZ [address] [facility] Department [place] [address] * PSA diagnostic (05/21/2024 1:13 PM ADMINISTRATIVE VOLUNTEER) PSA-Total <0.10 <=6.20 ng/mL Comment: Interpretive Data [...] data last revised 21. Testing performed by: [facility], [address] [place] [address]., [address] Blood 05/21/2024 1:13 PM ADMINISTRATIVE VOLUNTEER 05/21/2024 2:21 PM ADMINISTRATIVE VOLUNTEER Jose Mayfield MD LAB BLOOD ORDERABLES Final Resul t Performing Organization Address [facility] Co de Phone Number [place] [phone] [facility] [employer] [place] [address] * Hepatitis C antibody (05/18/2022 9:29 AM ADMINISTRATIVE VOLUNTEER) Pathologist [facility] [place] Hep C Ab Nonreactive Nonreactive JHONNY Comment: [...] revised on 2019. Blood 05/18/2022 9:29 AM ADMINISTRATIVE VOLUNTEER 05/18/2022 12:45 PM ADMINISTRATIVE VOLUNTEER Bernard Jackman MD LAB MICROBIOLOGY - G ENERAL ORDERABLES Final Result Performing Organization Address City/[facility]/ZIP Co de Phone Number [place] [phone] [facility] [place] [employer] [place] [address] * Colonoscopy (07/12/2015) Anatomical Region Laterality Modality Other us Historical Provider ENDOSCOPY PROCEDURES Rachel l Result from Last 3 Months or Most Recently Relevant to Health Maintenance Insurance [employer] MED[employer] HMO [employer] Member Subscriber Plan / Payer (Ef fective 2020-Present) Name:Isaias Wright Relation to Subscriber:Self Name:Isaias Wright Payer ID:[id number] (NAIC) Group ID:Not on file Type: Address: [place] [phone] [place] [address] FOR LIFE Care Teams Watch And Clock Maker And Repairer Relationship Specialty Start Date End Date Bernard Jackman MD [address] [facility] [place] [address] PCP - General 12/06/18
--- OUTSIDE RECORDS SUMMARY | 2024-09-25 00:59 | XMS_ITS | Encounter Summary ---
Author Organization [facility] Care Team Providers Care Skylights Assembler Name Role Phone Miscellaneous, Not In File Primary Care Provider Unavailable Unknown, Notinfile Primary Care Provider Unavail Bernard Choi MD Primary Care Provid er Unknown, Notinfile Primary Care Provider Unavail Bernard Choi MD Primary Care Provid er Bernard Jackman MD Primary Care Provid er Edyta Saleh LPN Unavailable [phone] Encounter Details Date Type Department Care Team (Latest Contact Info) Description 07/12/2015 Orders Only [facility] CLINCONV ProviderRyan MD [address] [place] [address] Social History Tobacco Use Types Packs/Day Years Used Date Smoking Tobacco: Never Sex and Gender Information Value Date Recorded Sex Assigned at Not on file Legal Sex Male 5:55 AM TOUR DIRECTOR Gender Identity Male 02/18/2022 7:25 PM TOUR DIRECTOR Sexual Orientation Not on file documented as [...] COVID: Suspected 03/07/2021 03/07/2021 03/07/2021 9:43 AM TOUR DIRECTOR COVID: Suspected 03/07/2021 03/07/2021 03/07/2021 8:41 PM TOUR DIRECTOR COVID: Suspected 04/04/2023 04/04/2023 04/04/2023 6:43 PM TOUR DIRECTOR COVID: Suspected 04/04/2023 04/04/2023 04/04/2023 10:36 PM TOUR DIRECTOR documented as of this encounter Care Teams Skylights Assembler Relationship Specialty Start Date End Date Miscellaneous, Not In File PCP - General 07/13/16 Unknown, Notinfile PCP - General 07/05/17 07/18/17 Bernard Jackman MD [address] [place] [address] PCP - General 07/19/17 07/19/17 Unknown, Notinfile PCP - General 07/20/17 07/23/17 Bernard Jackman MD [address] [place] [address] PCP - General 07/24/17 12/05/18 Bernard Jackman MD [address] [place] [address] PCP - General 12/06/18 Edyta Saleh LPN [address] [place] [address] Coffee Blender 07/20/20 07/20/20 documented as of this encounter
--- OUTSIDE RECORDS SUMMARY | 2024-09-25 00:59 | XMS_ITS | Clinical Summary ---
Author Organization [facility] Care Team Providers Care Mailmaster Name Role Phone Unavailable Primary Care Provider Unavailabl e Social History Tobacco Use Types Packs/Day Years Used Date Smoking Tobacco: Never Assessed Sex and Gender Information Value Date Recorded Sex Assigned at Not on file Legal Sex Male 2:11 PM CUSTOMER SUCCESS INTERN Gender Identity Not on file Sexual Orientation [...]
--- OUTSIDE RECORDS SUMMARY | 2024-09-25 00:59 | XMS_ITS | Encounter Summary ---
Author Organization [facility] Address [address] [place] [address] Care Team Providers Care Director Of Patient Care Name Role Phone Unavailable Primary Care Provider Unavailabl e Encounter Details Date Type Department Care Team (Late st Contact Info) Description 12/20/2022 Lab Requisition [facility] - DermPath Lab [address] [place] [address] Shyla Uribe PA-C [address] [place] [address] Neoplasm of uncertain behavior of [...] AM CDT) Case Report Dermatopathology Report Case: [id number] Authorizing Provider: Shyla Uribe PA-C Collected: 12/20/2022 12:00 AM Ordering Location: [facility] DermPath Lab Received: 12/24/2022 08:01 AM Pathologist: Princess Reyes MD Specimens: A) - Skin, right chest B) - Skin, left foot 4:12 PM CDT DERMATOPATHOLOGY LABORATORY Final Diagnosis Specimen A. 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 Jar 0. 3 4:12 PM [facility] DERMATOPATHOLOGY LABORATORY Microscopic Description Specimen A. SKIN, [...] larger lesion, these findings may not be service support representative of the entire lesion. Clinicopathologic correlation is recommended. 3 4:12 PM T DERMATOPATHOLOGY LABORATORY Disclaimer An external and internal positive and negative controls are appropriate for the histochemical, immunohistochemical and immunofluorescence stain(s) in this case (if any), except where stated explicitly. The performance characteristics of the stain(s) cited in this report were developed and its performance characteristic determined by the Dermatopathology Laboratory at [facility], directed by Dr. Kike Oswald. These tests need not be, and therefore are not, approved by the [place] Food and Drug Administration. The tests are used for clinical purposes. Billing Codes Specimen Charges Stain Charges 15035 16665 1 1 41281 1 3 4:12 PM CDT DERMATOPATHOLOGY LABORATORY Embedded Images 4:12 PM CDT DERMATOPATHOLOGY LABORATORY Pathology/Cytology TISSUE SPECIMEN FROM SKIN / Unknown 12/20/2022 12/24/2022 8:01 AM CDT Miscellaneous samples (specimen) TISSUE SPECIMEN FROM SKIN / Unknown 12/20/2022 12/24/2022 8:01 AM CDT Shyla Uribe PA-C LAB - PATHOLOGY/CYTOLOGY [facility] Final Result DERMATOPATHOLOGY LABORATORY [facility] - Department of Dermatology [facility] [address] [place] [address], [address] [phone] documented in this encounter Visit Diagnoses Diagnosis Neoplasm of uncertain behavior of skin documented in this encounter
--- OUTSIDE RECORDS SUMMARY | 2024-09-25 00:59 | XMS_ITS | Encounter Summary ---
Author Organization [facility] Address [address] [place] [address] Care Team Providers Care Deputy Editor In Chief Name Role Phone Bernard Jackman MD Primary Care Provid er Encounter Details Date Type Department Care Team (Late st Contact Info) Description 01/09/2022 Telephone [facility] Sleep Lab [address] [place], [place] [phone] Bonita Hurst, RUST Social History Tobacco Use Types Packs/Day Years [...] on file Legal Sex Male 5:55 AM JOB SUPERINTENDENT Gender Identity Male 02/18/2022 7:25 PM JOB SUPERINTENDENT Sexual Orientation Not on file documented as of this encounter Plan of Treatment Not on file documented as of this encounter Visit Diagnoses Not on filedocumented in this encounter Additional Health Concerns Infection Onset Date Last Indicated Resolved Time COVID: Suspected 04/04/2023 04/04/2023 04/04/2023 6:43 PM JOB SUPERINTENDENT COVID: Suspected 04/04/2023 04/04/2023 04/04/2023 10:36 PM JOB SUPERINTENDENT documented as of this encounter Care Teams Deputy Editor In Chief Relationship Specialty Start Date End Date Bernard Jackman MD [address] [place] [address] PCP - General 12/06/18 documented as of this encounter
--- OUTSIDE RECORDS SUMMARY | 2024-09-25 00:59 | XMS_ITS | Continuity of Care Document ---
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 It does not include entries that were removed or entered in error. 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 For cardiac risk factors, LDL is at goal. --HDL low- can be raised by exercise, Niacin, red wine--no indication for medicine at this time--Trig- High, could be related to diet, weight, alcohol--No need to change meds at this point. [facility] NORMAL ROUTINE HISTORY AND PHYSICAL Inactive Condition DoD ESOPHAGEAL REFLUX Active Condition DoD OSTEOARTHRITIS LOCALIZED PRIMARY - SHOULDER Active Condition [facility] visit for: issue repeat prescription Inactive Condition DoD Medications Combined list of outpatient medications from Department of Defense and Veterans Affairs facilities.Medications provided include 1) outpatient medications from the last 15 months, and 2) patient-reported medications. Medication Details Route Status Patient Instructions Prescription Expires Prescription Number Last Dispense Date Ordering Provider Order Date Order Qty Source azithromyci n 500 mg tablet See Instruct ions, # 3 EA, 0 total refill(s ), Hard Stop Complet ed 02/11/2024 4 2023 3.0 Ambulat ory Pharmac y benzonatate 100 mg capsule = 1 cap(s), Oral, TID, # 42 EA, 0 total refill(s ), Hard Stop Oral (given by mouth) Complet ed 04/15/2024 4 2024 42.0 Ambulat ory Pharmac y benzonatate 200 mg capsule See Instruct ions, Oral, 0, # 90 EA, 3 total refill(s ), Soft Stop Oral (given by mouth) Ordered 5 2024 90.0 Ambulat ory Pharmac y carvedilol 12.5 mg tablet See Instruct ions, # 180 EA, 3 total refill(s ), Hard Stop Ordered 01/27/2025 5 2024 180.0 Ambulat ory Pharmac y cetirizine 10 mg oral tablet TAKE ONE TABLET IN THE MORNING, # 30 EA, 4 total refill(s ), Acute Complet ed 06/12/2023 3 2023 30.0 Ambulat ory Pharmac y famotidine 20 mg oral tablet TAKE ONE TABLET BY MOUTH EVERY NIGHT, # 30 EA, 3 total refill(s ), Acute Complet ed 06/12/2023 3 2023 30.0 Ambulat ory Pharmac y Flovent 110 mcg inhaler (12g) See Instruct ions, # 36 g, 3 total refill(s ), Hard Stop Complet ed 03/31/2024 3 2023 36.0 Ambulat ory Pharmac y fluorouraci l 5% cream [40g] See Instruct ions, # 40 g, 0 total refill(s ), Soft Stop Ordered 5 2024 40.0 Ambulat ory Pharmac y FLUoxetine 20 mg capsule See Instruct ions, # 90 EA, 3 total refill(s ), Hard Stop Ordered 04/10/2025 5 2024 90.0 Ambulat ory Pharmac y fluticasone 50 mcg/inh nasal spray [16g] See Instruct ions, # 16 g, 0 total refill(s ), Hard Stop Complet ed 05/01/2024 4 2024 16.0 Ambulat ory Pharmac y hyoscyamine 0.125 mg sublingual tablet DISSOLVE 1 TABLET UNDER TONGUE EVERY SIX HOURS NEEDED FOR CRAMPING , # 90 EA, 1 total refill(s ), Acute Complet ed 10/03/2022 2 2022 90.0 Ambulat ory Pharmac y losartan 25 mg tablet See Instruct ions, # 90 EA, 3 total refill(s ), Hard Stop Ordered 05/18/2025 5 2024 90.0 Ambulat ory Pharmac y methylPREDN ISolone 4 mg tablet Dose Pack [21EA] See Instruct ions, # 21 EA, 0 total refill(s ), Hard Stop Complet ed 04/07/2024 4 2023 21.0 Ambulat ory Pharmac y methylPREDN ISolone 4 mg tablet Dose Pack [21EA] See Instruct ions, # 21 EA, 0 total refill(s ), Hard Stop Complet ed 02/14/2024 4 2023 21.0 Ambulat ory Pharmac y pantoprazol e 40 mg oral delayed release tablet TAKE ONE TABLET TWICE DAILY BEFORE BREAKFAS T AND DINNER, # 60 EA, 2 total refill(s ), Acute Complet ed 06/12/2023 3 2023 60.0 Ambulat ory Pharmac y pantoprazol e EC 40 mg tablet See Instruct ions, # 180 EA, 1 total refill(s ), Hard Stop Complet ed 09/15/2024 4 2024 180.0 Ambulat ory Pharmac y Paxlovid 300 mg-100 mg Dose Pack [30] See Instruct ions, # 30 EA, 0 total refill(s ), Hard Stop Complet ed 12/10/2023 3 2023 30.0 Ambulat ory Pharmac y rOPINIRole 1 MG ORAL TAB May cause drowsine ss.Take with food/mil k.Take or use exactly as directed . Active 09/29/2024 [id number] 4 2023 90 [employer] ([facility]) rOPINIRole 1 mg tablet See Instruct ions, # 90 EA, 2 total refill(s ), Soft Stop Ordered 5 2024 90.0 Ambulat ory Pharmac y rOPINIRole 1 mg tablet See Instruct ions, # 90 EA, 2 total refill(s ), Hard Stop Discont inued 08/18/2024 5 2024 90.0 Ambulat ory Pharmac y sildenafil 100 mg tablet See Instruct ions, # 10 EA, 11 total refill(s ), Hard Stop Complet ed 04/17/2024 4 2024 10.0 Ambulat ory Pharmac y simvastatin 20 mg tablet = 1 tab(s), Oral, Daily, # 90 EA, 3 total refill(s ), Hard Stop Oral (given by mouth) Ordered 12/18/2024 5 2024 90.0 Ambulat ory Pharmac y simvastatin 40 mg tablet = 1 tab(s), Oral, Daily, # 90 EA, 1 total refill(s ), Soft Stop Oral (given by mouth) Ordered 5 2024 90.0 Ambulat ory Pharmac y tadalafil 20 mg tablet See Instruct ions, # 12 EA, 11 total refill(s ), Hard Stop Ordered 05/26/2025 5 2024 12.0 Ambulat ory Pharmac y tadalafil 20 mg tablet See Instruct ions, # 12 EA, 3 total refill(s ), Hard Stop Discont inued 04/18/2023 3 2023 12.0 Ambulat ory Pharmac y Allergies, Adverse Reactions, Alerts Combined list of allergies from Department of Defense and Veterans Affairs facilities. It does not include entries that were removed or entered in error. Substance Category Reaction Severity Reaction type Status Date Reported Comments Source LISINOPRIL Drug allergy (disorder) Unknown active 5 [facility] [employer] ([facility]) lisinopril Propensity to adverse reactions to drug Unknown Active severe cough Unknown Organizatio n Immunizations Combined list of available immunizations from the Department of Defense and Veterans Affairs facilities. 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 Repairer Status Comments Source zoster recombinant 2020 ALUL, () Not Given zoster recombina nt DoD influenza, high-dose seasonal, quad, pf 2019 197 sanofi pasteur [facility] ed influenza , high-dose seasonal, quad, pf 02/02/20 Given Ambulat ory Pharmac y influenza, high-dose, quadrivalent 2019 ALUL, () Not Given influenza , high-dose , quadrival ent DoD pneumococcal 13-valent conjugate (PCV13) 2018 zzLef t Arm [id number] [employer] complet ed pneumococ marian 13-valent conjugate (PCV13) 04/22/18 Given Ambulat ory Pharmac y pneumococcal 13-valent conjugate (PCV13) 2018 [id number] [facility] complet ed pneumococ marian 13-valent conjugate (PCV13) 04/22/18 Given Ambulat ory Pharmac y pneumococcal conjugate vaccine, 13 valent 1 2018 Unknown, Provider [id number] [facility] (NOEL) complet ed pneumococ marian conjugate vaccine, 13 valent DoD influenza, injectable, quadrivalent- pf 2017 zzLef t Arm [id number] 150 Gl[employer]oSmith[employer] complet ed influenza , injectabl e, quadrival ent-pf 03/12/18 Given Ambulat ory Pharmac y influenza, injectable, quadrivalent- pf 2017 [id number] 150 Gl[employer]SmithK[employer] complet ed influenza , injectabl e, quadrival ent-pf 03/12/18 Given Ambulat ory Pharmac y Influenza, injectable, quadrivalent, preservative free 1 2017 Unknown, Provider [id number] 150 [employer] (SKB) complet ed Influenza , injectabl e, quadrival ent, preservat thiago free DoD Influenza, inj, MDCK, quadrivalent- pf 2017 zzLef t Arm [id number] 171 [employer] complet ed Influenza , inj, MDCK, quadrival ent-pf 04/19/17 Given Ambulat ory Pharmac y Influenza, inj, MDCK, quadrivalent- pf 2017 [id number] [employer] complet ed Influenza , inj, MDCK, quadrival ent-pf 04/19/17 Given Ambulat ory Pharmac y Influenza, injectable, Madin Kaylyn Canine Kidney, preservative free, quadrivalent 1 2017 Unknown, Provider [id number] 171 [employer] (SEQ) complet ed Influenza , injectabl e, Madin Kaylyn Canine Kidney, preservat thiago free, quadrival ent DoD influenza, injectable, quadrivalent- pf 2015 zzLef t Arm [id number] 150 GlaxoSmithKli ne complet ed influenza , injectabl e, quadrival ent-pf 02/08/16 Given Ambulat ory Pharmac y influenza, injectable, quadrivalent- pf 2015 [id number] 150 [facility] influenza , injectabl e, quadrival ent-pf 02/08/16 Given Ambulat ory Pharmac y Influenza, injectable, quadrivalent, preservative free 1 2015 Unknown, Provider [id number] 150 [facility] (SKB) complet ed Influenza , injectabl e, quadrival ent, preservat thiago free DoD influenza, seasonal, injectable-pf 2014 zzLef t Arm [id number] 140 [employer] complet ed influenza , seasonal, injectabl e-pf 01/18/15 Given Ambulat ory Pharmac y influenza, seasonal, injectable-pf 2014 [id number] 140 [employer] complet ed influenza , seasonal, injectabl e-pf 01/18/15 Given Ambulat ory Pharmac y Influenza, seasonal, injectable, preservative free 1 2014 Unknown, Provider [id number] 140 CS [employer] (CS) complet ed Influenza , seasonal, injectabl e, preservat thiago free DoD influenza, seasonal, injectable-pf 2013 zzLef t Arm [id number] 140 Novartis Pharmaceut[employer] ls complet ed influenza , seasonal, injectabl e-pf 01/29/14 Given Ambulat ory Pharmac y influenza, seasonal, injectable-pf 2013 [id number] Nov[employer]is Pharm[employer] ls complet ed influenza , seasonal, injectabl e-pf 01/29/14 Given Ambulat ory Pharmac y Influenza, seasonal, injectable, preservative free 1 2013 Unknown, Provider [id number] 140 Novartis Pharmaceutica l Lila. (NOV) complet ed Influenza , seasonal, injectabl e, preservat thiago free DoD influenza, seasonal, injectable-pf [id number] 140 sanofi pasteur complet ed influenza , seasonal, injectabl e-pf 01/30/13 Given Ambulat ory Pharmac y Influenza, seasonal, injectable, preservative free 10 2012 Unknown, Provider [id number] 140 Sanofi Pasteur ([facility]) complet ed Influenza , seasonal, injectabl e, preservat thiago free DoD influenza, seasonal, injectable 2011 [id number] 141 sanofi pasteur complet ed influenza , seasonal, injectabl e 03/04/12 Given Ambulat ory Pharmac y influenza, seasonal, injectable [facility] [id number] 141 sanofi pasteur complet ed influenza , seasonal, injectabl e 03/04/12 Given Ambulat ory Pharmac y tetanus, diphtheria, acellular pertu is 2011 zzRig Arm [id number] 115 GlaxoSmithKli ne complet ed tetanus, diphtheri a, acellular pertussis 03/04/12 Given Ambulat ory Pharmac y tetanus, diphtheria, acellular pertu is 2011 [id number] 115 GlaxoSmithKli ne complet ed tetanus, diphtheri a, acellular pertussis 03/04/12 Given Ambulat ory Pharmac y tetanus toxoid, reduced diphtheria toxoid, and acellular pertu is vaccine, adsorbed 1 2011 Unknown, Provider [id number] [address] [facility] (SKB) complet ed tetanus toxoid, reduced diphtheri a toxoid, and acellular pertussis vaccine, adsorbed DoD Influenza, seasonal, injectable 9 2011 Unknown, Provider [id number] 141 Sanofi Pasteur ([facility]) complet ed Influenza , seasonal, injectabl e DoD zoster vaccine live 2010 zzLef t Arm [id number] 121 Merck & Company Inc complet ed zoster vaccine live 03/01/11 Given Ambulat ory Pharmac y influenza, seasonal, injectable 2010 zzLef t Arm [id number] 141 sanofi pasteur complet ed influenza , seasonal, injectabl e 03/01/11 Given Ambulat ory Pharmac y zoster vaccine live 2010 [id number] Merck & Company Inc complet ed zoster vaccine live 03/01/11 Given Ambulat ory Pharmac y zoster vaccine, live 1 2010 Unknown, Provider [id number] 121 Merck (MSD) complet ed zoster vaccine, live DoD Influenza, seasonal, injectable 1 2010 Unknown, Provider [id number] 141 Sanofi Pasteur (PMC) complet ed Influenza , seasonal, injectabl e DoD influenza virus vaccine,split 2009 zzLef t Arm [id number] 15 [employer] complet ed influenza virus vaccine,s plit 03/07/10 Given Ambulat ory Pharmac y influenza virus vaccine,split 2009 [id number] 15 [employer] complet ed influenza virus vaccine,s plit 03/07/10 Given Ambulat ory Pharmac y influenza virus vaccine, split virus (incl. purified surface antigen)-reti red CODE 1 2009 Unknown, Provider [id number] [facility] [employer] (CSL) complet ed influenza virus vaccine, split virus (incl. purified surface antigen)- retired CODE DoD influenza virus vaccine,split 2008 [id number] 15 sanofi pasteur complet ed influenza virus vaccine,s plit 01/25/09 Given Ambulat ory Pharmac y influenza virus vaccine,split 2008 zzLef t Arm [id number] 15 sanofi pasteur complet ed influenza virus vaccine,s plit 01/25/09 Given Ambulat ory Pharmac y influenza virus vaccine, split virus (incl. purified surface antigen)-reti red CODE 1 2008 Unknown, Provider [id number] 15 Sanofi Pasteur ([facility]) complet ed influenza virus vaccine, split virus (incl. purified surface antigen)- retired CODE DoD influenza virus vaccine, live 2006 [id number] Med[employer] Inc comple t ed influenza virus vaccine, live 03/18/07 Given Ambulat ory Pharmac y influenza virus vaccine, live 2006 [id number] 111 Med[employer] Inc comple t ed influenza virus vaccine, live 03/18/07 Given Ambulat ory Pharmac y influenza virus vaccine, live, attenuated, for intranasal use 1 2006 Unknown, Provider [id number] 111 [employer] (MED) complet ed influenza virus vaccine, live, attenuate d, for intranasa l use DoD influenza virus vaccine,split 2005 15 complet ed influenza virus vaccine,s plit 03/20/06 Given Ambulat ory Pharmac y influenza virus vaccine,split 2005 15 complet ed influenza virus vaccine,s plit 03/20/06 Given Ambulat ory Pharmac y influenza virus vaccine, split virus (incl. purified surface antigen)-reti red CODE 2 2005 Unknown, Provider 15 Transcribed (TRS) complet ed influenza virus vaccine, split virus (incl. purified surface antigen)- retired CODE DoD influenza virus vaccine,split 2004 zzLef t Arm [id number] 15 sanofi pasteur complet ed influenza virus vaccine,s plit 03/02/05 Given Ambulat ory Pharmac y influenza virus vaccine,split 2004 [id number] 15 sanofi pasteur complet ed influenza virus vaccine,s plit 03/02/05 Given Ambulat ory Pharmac y influenza virus vaccine, split virus (incl. purified surface antigen)-reti red CODE 1 2004 Unknown, Provider [id number] 15 Sanofi Pasteur (PMC) complet ed influenza virus vaccine, split virus (incl. purified surface antigen)- retired CODE DoD vaccinia (smallpox) vaccine 2003 [facility] [id number] [employer] complet ed Patient Tolerance : M Ambulat ory Pharmac y typhoid vaccine, inactivated 2003 zzL t Arm [id number] 101 sanofi pasteur complet ed typhoid vaccine, inactivat ed 05/14/03 Given Ambulat ory Pharmac y influenza virus vaccine, whole virus 2003 [id number] 16 Novartis Pharmaceutica ls complet ed influenza virus vaccine, whole virus 05/14/03 Given Ambulat ory Pharmac y typhoid vaccine, inactivated 2003 [id number] 101 sanofi pasteur complet ed typhoid vaccine, inactivat ed 05/14/03 Given Ambulat ory Pharmac y vaccinia (smallpox) vaccine 2003 [id number] 75 [employer] complet ed vaccinia (smallpox ) vaccine 05/14/03 Given Ambulat ory Pharmac y influenza virus vaccine, whole virus [id number] 16 Novartis Pharmaceutica ls complet ed influenza virus vaccine, whole virus 05/14/03 Given Ambulat ory Pharmac y influenza virus vaccine, whole virus 1 2003 Unknown, Provider [id number] 16 [employer] (PWJ) complet ed influenza virus vaccine, whole virus DoD typhoid vaccine, parenteral, other than acetone-kille d, dried 1 2003 Unknown, Provider [id number] Sanofi Pasteur (PMC) complet ed typhoid vaccine, parentera l, other than acetone-k illed, dried DoD vaccinia (smallpox) vaccine 2 2003 Unknown, Provider [id number] 75 [facility] vaccinia (smallpox ) vaccine DoD hepatitis A adult vaccine 1999 52 complet ed hepatitis A adult vaccine 01/24/00 Given Ambulat ory Pharmac y hepatitis A adult vaccine 1999 52 complet ed hepatitis A adult vaccine 01/24/00 Given Ambulat ory Pharmac y hepatitis A vaccine, adult dosage 2 1999 Unknown, Provider 52 Transcribed (TRS) complet ed hepatitis A vaccine, adult dosage DoD hepatitis A adult vaccine 1999 zzLef t Arm [id number] 52 Merck & Company Inc complet ed hepatitis A adult vaccine 07/28/99 Given Ambulat ory Pharmac y tetanus-dipht h toxoids (Td) adult/adol 1999 zzRig ht Arm [id number] 09 [employer] complet ed tetanus-d iphth toxoids (Td) adult/ado l 07/28/99 Given Ambulat ory Pharmac y yellow fever vaccine 1999 zzRig ht Arm [id number] 37 [employer] complet ed yellow fever vaccine 07/28/99 Given Ambulat ory Pharmac y typhoid vaccine, inactivated 1999 [id number] 101 [employer] complet ed typhoid vaccine, inactivat ed 07/28/99 Given Ambulat ory Pharmac y typhoid vaccine, inactivated 1999 zzRig ht Arm [id number] 101 [employer] complet ed typhoid vaccine, inactivat ed 07/28/99 Given Ambulat ory Pharmac y tuberculin purified protein derivative 1999 zzLef t Arm [id number] 96 [employer] complet ed Patient Tolerance : Negative Ambulat ory Pharmac y yellow fever vaccine 1999 [id number] 37 [employer] complet ed yellow fever vaccine 07/28/99 Given Ambulat ory Pharmac y meningococcal polysaccharid e (MPSV4) 1999 [id number] 32 [employer] complet ed meningoco ccal polysacch aride (MPSV4) 07/28/99 Given Ambulat ory Pharmac y tuberculin purified protein derivative 1999 [id number] 96 [employer] complet ed tuberculi n purified protein derivativ e 07/28/99 Given Ambulat ory Pharmac y meningococcal polysaccharid e (MPSV4) 1999 zzLef t Arm [id number] 32 [employer] complet ed meningoco ccal polysacch aride (MPSV4) 07/28/99 Given Ambulat ory Pharmac y tetanus-dipht h toxoids (Td) adult/adol 1999 [id number] 09 [facility] complet ed tetanus-d iphth toxoids (Td) adult/ado l 07/28/99 Given Ambulat ory Pharmac y tetanus and diphtheria toxoids, adsorbed, preservative free, for adult use (2 Lf of tetanus toxoid and 2 Lf of diphtheria toxoid) 1 1999 Unknown, Provider [id number] 09 [employer] (CON) complet ed tetanus and diphtheri a toxoids, adsorbed, preservat thiago free, for adult use (2 Lf of tetanus toxoid and 2 Lf of diphtheri a toxoid) [facility] meningococcal polysaccharid e vaccine (MPSV4) 1999 Unknown, Provider [id number] 32 [employer] (CON) complet ed meningoco ccal polysacch aride vaccine (MPSV4) DoD yellow fever vaccine 1 1999 Unknown, Provider [id number] 37 [facility] yellow fever vaccine [facility] typhoid vaccine, parenteral, other than acetone-kille d, dried 1 1999 Unknown, Provider [id number] [facility] complet ed typhoid vaccine, parentera l, other than acetone-k illed, dried DoD hepatitis A vaccine, adult dosage 1 1999 Unknown, Provider [id number] 52 Merck (MSD) complet ed hepatitis A vaccine, adult dosage DoD tuberculin skin test; purified protein derivative solution, intradermal 1 1999 Unknown, Provider [id number] 96 [employer] (ARYAN) complet ed tuberculi n skin test; purified protein derivativ e solution, intraderm al DoD influenza virus vaccine, whole virus 1998 [id number] 16 [employer] complet ed influenza virus vaccine, whole virus 01/27/99 Given Ambulat ory Pharmac y influenza virus vaccine, whole virus 1998 [id number] 16 [employer] complet ed influenza virus vaccine, whole virus 01/27/99 Given Ambulat ory Pharmac y influenza virus vaccine, whole virus 1 1998 Unknown, Provider [id number] 16 Sree PAREDES) complet ed influenza virus vaccine, whole virus DoD Encounters Combined list of: 1) Encounters from Department of Veterans Affairs facilities going backup to the last 18 months, not all VA inpatient encounters are included; 2) Encounters from the Department of Defense facilities going backup to 280 months. Location Location Details Encounter Type Encounter Number Reason For Visit Attending Provider ADM Date DC Date Status Disposition Source [address] [place] [address] [facility])(Dco tt Internal Medicine Tm) TELE CONSULT [id number] med refills CHARLES FOOTE 06/[address] [place] [address] [facility])(S cott Interna l Medicin e Tm) [address] [place] [address] [place] OUTPATIENT [id number] Rt shldr repeate dly disloca alfonso MEG SOLORZANO 07/02 Released w/o Limitations [address] [place] [address] [facility])(S cott Interna l Medicin e Tm) [address] [place] [address] [facility])([facility] - [facility]) OUTPATIENT [id number] bilater al shoulde r pain and disloca tions JEANNA DRAPER 07/10 Released w/o Limitations [address] [place] [address] [facility])(V A - Orthope dics) [address] [place] [address] [facility])(Phy sical Therapy) OUTPATIENT [id number] right shoulde r recurre nt disloca tion NANCY RAMIRES 07/12 Released w/o Limitations [address] [place] [address] [facility])(P hysical Therapy ) [address] [place] [address] [facility])([facility]) OUTPATIENT [id number] f/u sue HUMPHREYS JEFFREY B 08/03 Released w/o Limitations [address] [place] [address] [facility])(V A - Orthope dics) [address] [place] [address] [facility])(Phy sical Therapy) OUTPATIENT [id number] NANCY RAMIRES 08/03 Released w/o Limitations [address] [place] [address] [facility])(P hysical Therapy ) [address] [place] [address] [facility])(Phy sical Therapy) OUTPATIENT [id number] COOPER MOCTEZUMA 08/06 Released w/o Limitations [address] [place] [address] [facility])(P hysical Therapy ) [employer] ([facility])(Phy sical Therapy) OUTPATIENT [id number] COOPER MOCTEZUMA P 08/08 Released w/o Limitations [employer] ([facility])(P hysical Therapy ) [employer] ([facility])(Phy sical Therapy) OUTPATIENT [id number] COOPER MOCTEZUMA P 08/13 Released w/o Limitations [employer] ([facility])(P hysical Therapy ) [employer] ([facility])(Occ upational Therapy) OUTPATIENT [id number] COOPER MOCTEZUMA 08/15 Released w/o Limitations [employer] ([facility])(O ccupati onal Therapy ) [employer] ([facility])(Occ upational Therapy) OUTPATIENT [id number] COOPER MOCTEZUMA P 08/21 Released w/o Limitations [employer] ([facility])(O ccupati onal Therapy ) [employer] ([facility])(Occ upational Therapy) OUTPATIENT [id number] COOPER MOCTEZUMA 08/23 Released w/o Limitations [employer] ([facility])(O ccupati onal Therapy ) [employer] ([facility])(Occ upational Therapy) OUTPATIENT [id number] COOPER MOCTEZUMA 08/27 Released w/o Limitations [employer] ([facility])(O ccupati onal Therapy ) [facility] [employer] ([facility])(Phy sical Therapy) OUTPATIENT [id number] COOPER MOCTEZUMA 08/29 Released w/o Limitations [employer] ([facility])(P hysical Therapy ) [facility] [employer] ([facility])([facility] - Orthopedi cs) OUTPATIENT [id number] f/u rt JEANNA Mayer 09/03 Released w/o Limitations [employer] [employer] ([facility])(V A - Orthope dics) [facility] [employer] ([facility])(Phy sical Therapy) OUTPATIENT [id number] ELIZABETH CAMPO 09/05 Released w/o Limitations [employer] ([facility])(P hysical Therapy ) [address] [place] [address])([facility] tt Internal Medicine Tm) OUTPATIENT [id number] Annual check-u p and prescri ption MEG SOLORZANO 08/16 Released w/o Limitations [address] [place] [address])(S cott Interna l Medicin e Tm) [address] [place] [address])([facility]) TELE CONSULT [id number] labs MEG SOLORZANO 08/[address] [place] [address])(S cott Interna l Medicin e Tm) [address] [place] [address])([facility]) TELE CONSULT [id number] JONY Barnes 11/[address] [place] [address])(S cott Interna l Medicin e Tm) Procedures Combined list of: 1) Procedures from Department of Veterans Affairs facilities [facility], not all VA non-surgical procedures are included; 2) All procedures from the Department of Defense facilities. Procedure Procedure Type Code Date Perfomer Comments Sourc e No data available for this section Ambulatory Pharmacy FLEXIBLE FIBEROPTIC COLONOSCOPY 8 DoD PHYSICAL THERAPY RE-EVALUATION 6 DoD APPLICATION OF A MODALITY TO 1 OR MORE AREAS; HOT OR COLD PACKS 6 DoD APPLICATION OF A MODALITY TO 1 OR MORE AREAS; HOT OR COLD PACKS 6 DoD APPLICATION OF A MODALITY TO 1 OR MORE AREAS; HOT OR COLD PACKS 6 DoD APPLICATION OF A MODALITY TO 1 OR MORE AREAS; HOT OR COLD PACKS 6 DoD APPLICATION OF A MODALITY TO 1 OR MORE AREAS; HOT OR COLD PACKS 6 DoD APPLICATION OF A MODALITY TO 1 OR MORE AREAS; HOT OR COLD PACKS 6 DoD APPLICATION OF A MODALITY TO 1 OR MORE AREAS; HOT OR COLD PACKS 6 DoD APPLICATION OF A MODALITY TO 1 OR MORE AREAS; HOT OR COLD PACKS 6 DoD PHYSICAL THERAPY RE-EVALUATION 6 DoD THERAPEUTIC PROCEDURE, 1 OR MORE AREAS, EACH 15 MINUTES; THERAPEUTIC EXERCISES TO DEVELOP STRENGTH AND ENDURANCE, RANGE OF MOTION AND FLEXIBILITY 6 DoD Physical Medicine Physical Therapy Re-Evaluation Physical Medicine Physical Therapy Re-Evaluation 75201 6 ALBER ELIZABETH RAMON DoD Modalities Cryotherapy Cold Packs Modalities Cryotherapy Cold Packs 08428 6 COOPER MOCTEZUMA [facility] Physical Therapy: ___ Se ion Segments, 15 Minutes Each Physical Therapy: ___ Session Segments, 15 Minutes Each 91548 6 COOPER MOCTEZUMA Therex x45 mins DoD Modalities Cryotherapy Cold Packs Modalities Cryotherapy Cold Packs 58620 6 COOPER MOCTEZUMA [facility] Physical Therapy: ___ Se ion Segments, 15 Minutes Each Physical Therapy: ___ Session Segments, 15 Minutes Each 94951 6 COOPER MOCTEZUMA Therex x45 mins DoD Modalities Cryotherapy Cold Packs Modalities Cryotherapy Cold Packs 47472 6 COOPER MOCTEZUMA [facility] Physical Therapy: ___ Se ion Segments, 15 Minutes Each Physical Therapy: ___ Session Segments, 15 Minutes Each 84196 6 COOPER MOCTEZUMA Therex x45 mins DoD Modalities Cryotherapy Cold Packs Modalities Cryotherapy Cold Packs 03298 6 COOPER MOCTEZUMA [facility] Physical Therapy: ___ Se ion Segments, 15 Minutes Each Physical Therapy: ___ Session Segments, 15 Minutes Each 82795 6 COOPER MOCTEZUMA Therex x45 mins DoD Modalities Cryotherapy Cold Packs Modalities Cryotherapy Cold Packs 21104 6 COOPER MOCTEZUMA [facility] Physical Therapy: ___ Se ion Segments, 15 Minutes Each Physical Therapy: ___ Session Segments, 15 Minutes Each 41938 6 COOPER MOCTEZUMA Therex x45 mins DoD Modalities Cryotherapy Cold Packs Modalities Cryotherapy Cold Packs 15617 6 COOPER MOCTEZUMA [facility] Physical Therapy: ___ Se ion Segments, 15 Minutes Each Physical Therapy: ___ Session Segments, 15 Minutes Each 17254 6 COOPER MOCTEZUMA Therex x45 mins DoD Modalities Cryotherapy Cold Packs Modalities Cryotherapy Cold Packs 65056 6 COOPER MOCTEZUMA [facility] Physical Therapy: ___ Se ion Segments, 15 Minutes Each Physical Therapy: ___ Session Segments, 15 Minutes Each 40798 6 COOPER MOCTEZUMA Therex x45 mins DoD Modalities Cryotherapy Cold Packs Modalities Cryotherapy Cold Packs 46999 6 COOPER MOCTEZUMA [facility] Physical Therapy: ___ Se ion Segments, 15 Minutes Each Physical Therapy: ___ Session Segments, 15 Minutes Each 74762 6 COOPER MOCTEZUMA Therex x45 mins [facility] Physical Medicine Physical Therapy Re-Evaluation Physical Medicine Physical Therapy Re-Evaluation 75242 6 NANCY RAMIRES [facility] Physical Medicine Physical Therapy Evaluation Physical Medicine Physical Therapy Evaluation 84384 6 NANCY RAMIRES [facility] Physical Therapy: ___ Se ion Segments, 15 Minutes Each Physical Therapy: ___ Session Segments, 15 Minutes Each 56382 6 NICK RAMIRESSTON Nicolette [facility] Social History Combined list of available smoking, tobacco, and other social history from Department of Defense and Veterans Affairs facilities. Social History Type Response Date Comment Sour e This section is an empty social history section. DoD Assessment and Plan Combined list of future care activities from Department of Defense and Veterans Affairs facilities (e.g., assessment and plan notes, appointments, orders, and referrals). Additional future care activities may be listed in the Plan of Care section. Result Assessment and Plan Date Source Assessment and Plan No data available for this section 09/25/2024 Ambulatory Pharmacy Functional Status Combined list of recent functional and cognitive assessments recorded at Department of Defense and Veterans Affairs (ID).VA Functional [place] Measurement (FIM) Scale: 1 = Total Assistance (Subject = 0% +), 2 = Maximal Assistance (Subject = 25% +), 3 = Moderate Assistance (Subject = 50% +), 4 = Minimal Assistance (Subject = 75% +), 5 = Supervision, 6 = Modified [place] (Device), 7 = Complete [place] (Timely, Safely). Assessment Date/Time Source Assessment Type Assessment Skill Assessment Score Assessment Details No data available for this section
--- OUTSIDE RECORDS SUMMARY | 2024-09-25 00:59 | XMS_ITS ---
Author Organization [facility] Address [address] [place] [address] Care Team Providers Care Glass Furnace Operator Name Role Phone Bernard Jackman MD Primary [...] Dr. Terrell and KEDAR Cardenas contacted via [place] to scheduled post op follow up appointment. PLMD (periodic limb movement disorder) Assessment & Plan (05/25/2024 8:47 AM DERRICK ENGINEER): Patient will continue with Requip 1 mg p.o. at bedtime. Assessment & Plan (04/25/2023 11:28 AM DERRICK ENGINEER): PLMS are under control with Requip 1 mg at bedtime. Assessment & Plan (04/19/2022 12:03 PM DERRICK ENGINEER): Patient will continue with Requip 1 mg p.o. at bedtime. Assessment & Plan (02/19/2022 12:50 PM DERRICK ENGINEER): Patient will continue with Requip 1 mg [...] 10/10/2012 Assessment & Plan (05/25/2024 8:47 AM DERRICK ENGINEER): Patient will continue with CPAP therapy at 6-20 cm water pressure. I have sent an order for the patient to receive the correct hose. The patient does have a Angelia machine a not a ResMed. Patient's DME is [employer]. Assessment & Plan (04/25/2023 11:28 AM DERRICK ENGINEER): The patient continues to benefit from the auto titrating CPAP unit with a range of 6-20 cm water pressure for ongoing symptoms of DELFINA. His DME supplier is [employer]. He will follow up here in 1 year. Assessment & Plan (04/19/2022 12:03 PM DERRICK ENGINEER): Patient will continue with CPAP therapy at 6-20 cm water pressure. Patient's DME is [employer]. Assessment & Plan (02/19/2022 12:51 PM DERRICK ENGINEER): Patient will continue with CPAP therapy at [...] receive an order for new supplies. The [employer] company is [employer] The patient is benefitting from CPAP therapy. Hyperlipidemia 10/10/2012 Aortic valve stenosis 04/18/2012 Cough 12/05/2011 Left ventricular hypertrophy 10/16/2011 Current Treatment and Therapy Plans No current plan information found. Past Treatment and Therapy Plans No past plan information found. Lifetime Dose Tracking * Chemical Lifetime Dose Automatic Entry Manual Entr y Fluoro Time 2.683 minutes 2.683 minutes 0 minutes Air kerma at the reference point (Ka,r) 375.9 mGy 3 75.9 mGy 0 mGy DLP 1,766 mGycm 1,766 mGycm 0 mGycm Resolved Problems Problem Noted Date Diagnosed Date Resolved Date Undiagnosed cardiac murmurs 04/18/2023 02/25/2024 Impacted cerumen, right ear [H61.21 (ICD-10-CM)] 08/28/2022 08/28/2022
--- OUTSIDE RECORDS SUMMARY | 2024-09-25 00:59 | XMS_ITS | Encounter Summary ---
Author Organization [facility] Address [address] [place] [address] Care Team Providers Care Underground Distribution Engineer Name Role Phone Unavailable Primary Care Provider Unavailabl e Encounter Details Date Type Department Care Team (Late st Contact Info) Description 06/20/2023 Lab Requisition [facility] - DermPath Lab [address] [place] [id number] Ayden Bright MD [facility] DERMATOLOGY [address] [place] [phone] Neoplasm of uncertain behavior of skin [...] Comments DERMATOPATHOLOGY Routine 06/20/2023 12:0 0 AM STONEMASON SUPERVISOR Neoplasm of uncertain behavior of skin documented in this encounter Results * DERMATOPATHOLOGY (06/20/2023 12:00 AM STONEMASON SUPERVISOR) Case Report Dermatopathology Report Case: [id number] Authorizing Provider: Ayden Bright MD Collected: 06/20/2023 12:00 AM Ordering Location: [facility] Physician [facility] - Received: 06/21/2023 12:14 PM DermPath Lab Pathologist: Princess Reyes MD Specimen: Skin, right thigh 4 3:41 PM CDT DERMATOPATHOLOGY LABORATORY Final Diagnosis Specimen A. SKIN, right thigh: HYPERKERATOSIS, PAPILLOMATOSIS, ACANTHOSIS, AND HYPERGRANULOSIS; SUPERFICIAL PORTIONS OF (B07.8) (see microscopic description and comment) 4 3:41 PM T DERMATOPATHOLOGY LABORATORY at 1541 CDT Clinical History Seborrheic Keratosis vs Squamous Cell Carcinoma 4 3:41 PM CDT DERMATOPATHOLOGY LABORATORY Gross Description Specimen [...] characteristic determined by the Dermatopathology Laboratory at [facility], directed by Dr. Kike Oswald. These tests need not be, and therefore are not, approved by the [place] Food and Drug Administration. The tests are used for clinical purposes. Billing Codes Specimen Charges Stain Charges 55862 1 3:41 PM CDT DERMATOPATHOLOGY LABORATORY Embedded Images 3:41 PM T DERMATOPATHOLOGY LABORATORY Pathology/Cytolog y TISSUE SPECIMEN FROM SKIN / Unknown 06/20/2023 06/21/2023 12:14 PM STONEMASON SUPERVISOR Ayden Bright MD LAB - PATHOLOGY/CYTOLOGY ORDLaila AVENDAÑO Final Result DERMATOPATHOLOGY LABORATORY [facility] - Department of Dermatology [facility] Medicine [address] [place] [address], [address] [phone] documented in this encounter Visit Diagnoses Diagnosis Neoplasm of uncertain behavior of skin documented in this encounter
--- OUTSIDE RECORDS SUMMARY | 2024-09-25 00:59 | XMS_ITS | Clinical Summary ---
Author Organization [facility] Address [address] [place] [address] Care Team Providers Care Boiler Welder Name Role Phone Unavailable Primary Care Provider Unavailabl e Source Comments [facility],non-owned Affiliates and Associated Physician Practices is amultiple site organization consisting of ambulatory clinics and hospital sitesin [place], [place], [place] and [place]. This disclosure is being madepursuant to the Care Everywhere program and may not contain all information available regarding this patient. Last updated 18.[facility] [employer] Social History Tobacco Use Types Packs/Day Years [...] age to complete this topic Insurance MEDICARE [facility] Address: [address] [place] [address] [facility] [employer] MEDICARE ADV HMO & PPO
--- OUTSIDE RECORDS SUMMARY | 2024-09-25 00:59 | XMS_ITS | Encounter Summary ---
Author Organization [facility] Address [address] [place] [address] Care Team Providers Care Machine Tender Name Role Phone Unavailable Primary Care Provider Unavailabl e Encounter Details Date Type Department Care Team (Late st Contact Info) Description 10/09/2019 Lab Requisition [facility] DermPath Lab [address] [facility] [facility] [address] [facility] [place] [address] Skylar Wright DO [address] [facility] [address] [place] [address] Social History Tobacco Use Types Packs/Day Years [...] AM CDT) Case Report Dermatopathology Report Case: [id number] Authorizing Provider: Skylar Wright DO Collected: 10/08/2019 12:00 AM Ordering Location: [facility] Care DermPath Lab Received: 10/09/2019 09:26 AM Pathologist: Kenia Salguero MD Specimens: A) - Skin, left anterior LE B) - Skin, back 0 5:50 PM CDT DERMATOPATHOLOGY LABORATORY Final Diagnosis Specimen A. SKIN, left anterior LE: LICHEN PLANUS-LIKE KERATOSIS (BENIGN LICHENOID KERATOSIS) (L82.1) Specimen B. SKIN, back: LARGE CELL ACANTHOMA (D23.9) LICHEN PLANUS-LIKE KERATOSIS (BENIGN LICHENOID KERATOSIS) (L82.1) 0 5:50 PM CDT DERMATOPATHOLOGY LABORATORY at 1750 CDT Clinical History A: R/O NMSC B: SK [...] specimen consists of a shave biopsy measuring [id number] mm. Jar 0. 0 5:50 PM CDT [...] characteristic determined by the Dermatopathology Laboratory at [facility], directed by Dr. Kike Oswald. These tests need not be, and therefore are not, approved by the [place] Food and Drug Administration. The tests are used for clinical purposes. Billing Codes Specimen Charges Stain Charges 29144 60390 1 1 0 5:50 PM CDT DERMATOPATHOLOGY LABORATORY Embedded Images 0 5:50 PM CDT DERMATOPATHOLOGY LABORATORY Pathology/Cytology TISSUE SPECIMEN FROM SKIN / Unknown 10/08/2019 10/09/2019 9:26 AM CDT Miscellaneous samples (specimen) TISSUE SPECIMEN FROM SKIN / Unknown 10/08/2019 10/09/2019 9:26 AM CDT us Skylar Wright DO LAB - PATHOLOGY/CYTOLOGY ORDERABLES Final Result DERMATOPATHOLOGY LABORATORY [facility] - Department of Dermatology [facility] [address] [place] [address] documented in this encounter Visit Diagnoses Not on filedocumented in this encounter
[2024-09-25] MEDS: GENTAMICIN 80MG/SOD CHL 50 ML 80 MG/50 ML BAG 100 MG IVPB (09:00)
[2024-09-25 09:08] VITALS: BP 141/66; PULSE 54; RESP 19; TEMP 36.2; O2SAT 99
[2024-09-25] MEDS: LACTATED RINGERS 1,000 ML 150 ML IV CONT (09:10)
--- NOTE | 2024-09-25 09:14 | WPDANESEPPF ---
Anes - Initial Pre Proc Eval Procedure: Operation Date: 09/25/24 10:00 Proposed Procedures p Esophagogastroduodenoscopy - Lavelle Rodriguez MD Date/Time: 09/25/24 09:14 Surgeon: Lavelle Rodriguez MD Pre Op Diagnosis: Gastro-esophageal reflux disease without esophagit Patient Data Age: 73 Gender: M Height: 1.8 m Weight: 105.4 kg Last Vital Signs Temp 36.2 C L 09/25/24 09:08 Pulse 54 L 09/25/24 09:08 Resp 19 09/25/24 09:08 BP 141/66 H 09/25/24 09:08 Pulse Ox 99 09/25/24 09:08 O2 Del Method Room Air 09/25/24 09:08 Allergies Allergy/AdvReac Type Severity Reaction Status Date / Time lisinopril Allergy Mild Cough Verified 09/25/24 09:06 Home Medications ?Medication ?Instructions ?Recorded ?Confirmed ?Type [facility] 1 cap BYMOUTH 07/30/24 09/10/24 History carvedilol 12.5 mg tablet 12.5 mg PO Q12H 07/30/24 09/25/24 History cetirizine 10 mg tablet (All Day 10 mg PO DAILY PRN allergy symptoms 07/30/24 09/25/24 History Allergy (cetirizine)) fluoxetine 20 mg capsule 20 mg PO DAILY 07/30/24 09/25/24 History losartan 25 mg tablet 25 mg PO DAILY 07/30/24 09/25/24 History ywguxaqp-cz-xzpcd 300 mcg-K 60 1 tablet PO DAILY 07/30/24 09/25/24 History mcg-lycop 600 mcg-lutein 300 mcg tablet (Centrum Silver Men) pantoprazole 40 mg tablet,delayed 40 mg PO QAM 07/30/24 09/25/24 History release ropinirole 1 mg tablet 1 mg PO QHS 07/30/24 09/25/24 History simvastatin 40 mg tablet 40 mg PO DAILY #90 tabs 09/08/24 09/25/24 Rx albuterol 90 mcg-budesonide 80 2 inh inhalation ONCE #10.7 grams 09/10/24 09/23/24 Rx mcg/actuation HFA aerosol inhaler (Airsupra) benzonatate 200 mg capsule 200 mg PO TID PRN cough #90 caps 09/10/24 09/23/24 Rx cholecalciferol (vitamin D3) 250 125 mcg PO DAILY 09/10/24 09/25/24 History mcg (10,000 unit) capsule famotidine 20 mg tablet (Pepcid) 20 mg PO QHS 09/10/24 09/25/24 History Patient hx anesthesia problems: none Family hx anesthesia problems: none Results Review: All pre-operative results and documents have been reviewed as part of the pre-operative evaluation. [facility] Past Medical History Medical History Follow up Hyperlipidemia Benign essential hypertension Light headed Dysphagia DELFINA on CPAP BMI 32.0-32.9,adult Hx of colonic polyps Skin lesion On longterm drug therapy History of prostate cancer GERD (gastroesophageal reflux disease) Schatzki's ring Chronic cough RLS (restless legs syndrome) Encounter to establish care Surgical History Surgical History Hx of appendectomy Hx of prostatectomy H/O aortic valve replacement Family History Family History Mother , @ age 90 Alzheimers disease Father , @ 56. Non Hodgkin's lymphoma Sibling Down's syndrome Sibling Malignant neoplasm of prostate Sibling Breast cancer Sibling Thyroid cancer Social History Social History Smoking status: Never smoker Second hand tobacco smoke exposure: No Alcohol intake: current Drinks per week: 4 Alcohol use details: Social ETOH- 5-7 drinks weekly. Substance use type: does not use Do You Feel Safe in your Home?: Yes Lack of Transportation: No Lack of Food: Never True Current Housing: I Have Housing Concerned About Future Housing: No Difficulty Paying Gas/Electric Bills: No Difficulty Paying for Meds: No Currently Unemployed: No Difficulty w/ Childcare or Family Care: No Living arrangements: with family Additional living arrangements comments: with sp Occupation/Education: retired Gender identity (if verbalized by the patient): Male Anes - Eval Final PreProcedure Day of Procedure 09/25/24 09:14 Patient weight: obese Heart: regular rate and rhythm Lungs: decreased breath sounds Airway: Mallampati scale class II Neurological: alert and oriented Last oral intake: >/= 8 hours ASA classification: III Emergent: no Anesthetic plan: proceed Anesthesia type and monitoring: general GIVS and standard monitoring Results Review: All pre-operative results and documents have been reviewed as part of the pre-operative evaluation. Informed Consent: The patient's anesthetic plan and its attendant risks and benefits were discussed with the patient/family/POA. Questions were solicited and answers provided to the satisfaction of the patient/family/POA.
[2024-09-25] MEDS: AMPICILLIN 2 GM/NS 100 ML 2 GM/100 ML BAG IVPB (09:40)
--- NOTE | 2024-09-25 10:01 | WPDHPUPDATE1 ---
History and Physical Update Update Date/Time: 09/25/24 10:01 History and Physical has been reviewed, including an updated exam of the patient. There are NO changes in the patient's condition. Risks, benefits, and alternatives have been discussed and questions answered. Patient agrees to proceed with procedure.
--- NOTE | 2024-09-25 10:09 | S_PTH ---
PATIENT: Isaias Wright LOC: [facility] Riley#:[id number] AGE/SX: 73/M ROOM: RE09/25/[address]: Lavelle Rodriguez MD : 1950 BED: DIS: 09/25/2024 SPEC #: [id number] RECD: 09/25/24 10:55 STATUS: JONN RESarbjit #: [id number] STUART: 09/25/24 10:[address]: Lavelle Rodriguez DEPT: [facility] Surgical RECD BY: Cece Aden ENTERED: 09/25/24 10:55 SP TYPE: Surgical OTHR DR: Alex Hernandez MD Tissues: A - Esophageal Biopsy Procedures: Hematoxylin and Eosin Stain Gross and Microscopic Level 4
[2024-09-25 10:14] VITALS: BP 108/77; PULSE 55; RESP 16; O2SAT 99
[2024-09-25 10:24] VITALS: BP 101/61; PULSE 51; RESP 16; O2SAT 99
[2024-09-25 10:34] VITALS: BP 127/82; PULSE 52; RESP 21; O2SAT 99
== END 2024-09-25 10:44 | disposition home or self-care (01) ==
PROVIDERS: PCP Internal Medicine; Referring Provider Nurse Practitioner Family; Visit Provider Internal Medicine Gastroenterology
PROC: 0DJ08ZZ Inspection of Upper Intestinal Tract, Via Natural or Artificial Opening Endoscopic (ICD-10-PCS; CPT 43249; principal; 2024-09-25 10:00)
DX: K22.2 Esophageal obstruction (principal); K31.7 Polyp of stomach and duodenum; K21.9 Gastro-esophageal reflux disease without esophagitis; E78.5 Hyperlipidemia, unspecified; I10 Essential (primary) hypertension; G47.33 Obstructive sleep apnea (adult) (pediatric); G25.81 Restless legs syndrome; R05.3 Chronic cough; E66.9 Obesity, unspecified; Z68.32 Body mass index [BMI] 32.0-32.9, adult; Z79.51 Long term (current) use of inhaled steroids; Z79.899 Other long term (current) drug therapy; Z99.89 Dependence on other enabling machines and devices; Z98.890 Other specified postprocedural states; Z95.2 Presence of prosthetic heart valve; Z86.0100 Personal history of colon polyps, unspecified; Z85.46 Personal history of malignant neoplasm of prostate; Z80.42 Family history of malignant neoplasm of prostate; Z80.3 Family history of malignant neoplasm of breast; Z80.8 Family history of malignant neoplasm of other organs or systems; Z80.7 Family history of other malignant neoplasms of lymphoid, hematopoietic and related tissues
CPT/HCPCS: 43249; 88305; C1726; J0290; J1580; J2003; J2704; J7120

== ENCOUNTER 2024-10-14 11:27 | Outpatient (CLI) | payer MEDICARE, OTHER, SELFPAY ==
--- NOTE | ~2024-10-14 | XR_ITS ---
Thoracic spine: Clinical Indication: Neck pain AP and lateral views were performed. No fracture is seen. There is normal alignment of the vertebrae. The intervertebral disc spaces appe ar normal. Paravertebral soft tissues appear normal. Impression: No significant abnormalities noted. Reviewed, dictated and finalized at [facility]. Impression: No significant abnormalities noted.
--- NOTE | ~2024-10-14 | XR_ITS ---
Clinical Indication: Pain PA and lateral views of the chest: Comparison: None Findings: The lungs are clear, without evidence of focal consolidation or pleural effusion. Cardiome diastinal silhouette is unremarkable, status post aortic valve replacement. Bones and soft tissues ar e unremarkable. Impression: Clear lungs. Status post aortic valve replacement. Reviewed, dictated and finalized at location . Impression: Clear lungs. Status post aortic valve replacement.
--- OUTSIDE RECORDS SUMMARY | 2024-10-14 11:31 | XMS_ITS | Encounter Summary ---
Author Organization [facility] Address [address] [facility] [place] [address] Care Team Providers Care Tire Vulcanizer Name Role Phone Unavailable Primary Care Provider Unavailabl e Encounter Details Date Type Department Care Team (Late st Contact Info) Description 12/20/2022 Lab Requisition [facility] - DermPath Lab [address] [place] [address] Shyla Uribe PA-C [address] [place] [address] Neoplasm of uncertain behavior of [...] AM CDT) Case Report Dermatopathology Report Case: [id number] Authorizing Provider: Shyla Uribe PA-C Collected: 12/20/2022 12:00 AM Ordering Location: [facility] DermPath Lab Received: 12/24/2022 08:01 AM Pathologist: [...] 7x5x2 mm. Jar 0. 3 4:[address] [facility] DERMATOPATHOLOGY LABORATORY Microscopic Description Specimen A. SKIN, [...] larger lesion, these findings may not be product sales representative of the entire lesion. Clinicopathologic correlation [...] characteristic determined by the Dermatopathology Laboratory at [facility], directed by Dr. Kike Oswald. These tests need not be, and therefore are not, approved by the [place] Food and Drug Administration. The tests are used for clinical purposes. Billing Codes Specimen Charges Stain Charges 17338 99766 1 1 94451 1 3 4:12 PM CDT DERMATOPATHOLOGY LABORATORY Embedded Images 4:12 PM CDT DERMATOPATHOLOGY LABORATORY Pathology/Cytology TISSUE SPECIMEN FROM SKIN / Unknown 12/20/2022 12/24/2022 8:01 AM CDT Miscellaneous samples (specimen) TISSUE SPECIMEN FROM SKIN / Unknown 12/20/2022 12/24/2022 8:01 AM CDT Shyla Uribe PA-C LAB - PATHOLOGY/CYTOLOGY ORDE JAROCHO Final Result DERMATOPATHOLOGY LABORATORY [facility] - Department of Dermatology [facility] Specialized Medicine [address] [place] [address], [address] [phone] documented in this encounter Visit Diagnoses Diagnosis Neoplasm of uncertain behavior of skin documented in this encounter
--- OUTSIDE RECORDS SUMMARY | 2024-10-14 11:31 | XMS_ITS | Encounter Summary ---
Author Organization [facility] Address [address] [place] [address] Care Team Providers Care Tooth Inspector Name Role Phone Bernard Jackman MD Primary Care Provid er Encounter Details Date Type Department Care Team (Late st Contact Info) Description 01/09/2022 Telephone [facility] Sleep Lab [address] [place], [place] [phone] Bonita Hurst, [facility] Social History Tobacco Use Types Packs/Day Years [...] on file Legal Sex Male 5:55 AM DIRECTOR OF CATERING Gender Identity Male 02/18/2022 7:25 PM DIRECTOR OF CATERING Sexual Orientation Not on file documented as of this encounter Plan of Treatment Not on file documented as of this encounter Visit Diagnoses Not on filedocumented in this encounter Additional Health Concerns Infection Onset Date Last Indicated Resolved Time COVID: Suspected 04/04/2023 04/04/2023 04/04/2023 6:43 PM DIRECTOR OF CATERING COVID: Suspected 04/04/2023 04/04/2023 04/04/2023 10:36 PM DIRECTOR OF CATERING documented as of this encounter Care Teams Tooth Inspector Relationship Specialty Start Date End Date Bernard Jackman MD [address] [place] [address] PCP - General 12/06/18 documented as of this encounter
--- OUTSIDE RECORDS SUMMARY | 2024-10-14 11:31 | XMS_ITS | Encounter Summary ---
Author Organization [facility] Facility Care Team Providers Care Facility Security Officer Name Role Phone Miscellaneous, Not In File Primary Care Provider Unavailable Unknown, Notinfile Primary Care Provider Unavail Bernard Choi MD Primary Care Provid er Unknown, Notinfile Primary Care Provider Unavail Bernard Choi MD Primary Care Provid er Bernard Jackman MD Primary Care Provid er Edyta Saleh LPN Unavailable [phone] Encounter Details Date Type Department Care Team (Latest Contact Info) Description 07/12/2015 Orders Only [facility] CLINCONV ProviderRyan MD [address] [place] [id number] Social History Tobacco Use Types Packs/Day Years Used Date Smoking Tobacco: Never Sex and Gender Information Value Date Recorded Sex Assigned at Not on file Legal Sex Male 5:55 AM SHOP TECH Gender Identity Male 02/18/2022 7:25 PM SHOP TECH Sexual Orientation Not on file documented as [...] COVID: Suspected 03/07/2021 03/07/2021 03/07/2021 9:43 AM SHOP TECH COVID: Suspected 03/07/2021 03/07/2021 03/07/2021 8:41 PM SHOP TECH COVID: Suspected 04/04/2023 04/04/2023 04/04/2023 6:43 PM SHOP TECH COVID: Suspected 04/04/2023 04/04/2023 04/04/2023 10:36 PM SHOP TECH documented as of this encounter Care Teams Facility Security Officer Relationship Specialty Start Date End Date Miscellaneous, Not In File PCP - General 07/13/16 Unknown, Notinfile PCP - General 07/05/17 07/18/17 Bernard Jackman MD [address] [place] [address] PCP - General 07/19/17 07/19/17 Unknown, Notinfile PCP - General 07/20/17 07/23/17 Bernard Jackman MD [address] [place] [address] PCP - General 07/24/17 12/05/18 Bernard Jackman MD [address] [place] [address] PCP - General 12/06/18 Edyta Saleh LPN [address] [place] [address] Coffee Sommelier 07/20/20 07/20/20 documented as of this encounter
--- OUTSIDE RECORDS SUMMARY | 2024-10-14 11:31 | XMS_ITS | Encounter Summary ---
Author Organization [facility] Facility Care Team Providers Care Neighborhood Aide Name Role Phone Miscellaneous, Not In File Primary Care Provider Unavailable Unknown, Notinfile Primary Care Provider Unavail Bernard Choi MD Primary Care Provid er Unknown, Notinfile Primary Care Provider Unavail Bernard Choi MD Primary Care Provid er Bernard Jackman MD Primary Care Provid er Edyta Saleh LPN Unavailable [phone] Encounter Details Date Type Department Care Team (Latest Contact Info) Description 02/07/2017 Orders Only [facility] CLINCONV ProviderRyan MD [address] [place] [id number] Social History Tobacco Use Types Packs/Day Years Used Date Smoking Tobacco: Never Sex and Gender Information Value Date Recorded Sex Assigned at Not on file Legal Sex Male 5:55 AM WORKDAY SENIOR ASSOCIATE Gender Identity Male 02/18/2022 7:25 PM WORKDAY SENIOR ASSOCIATE Sexual Orientation Not on file documented as [...] COVID: Suspected 03/07/2021 03/07/2021 03/07/2021 9:43 AM WORKDAY SENIOR ASSOCIATE COVID: Suspected 03/07/2021 03/07/2021 03/07/2021 8:41 PM WORKDAY SENIOR ASSOCIATE COVID: Suspected 04/04/2023 04/04/2023 04/04/2023 6:43 PM WORKDAY SENIOR ASSOCIATE COVID: Suspected 04/04/2023 04/04/2023 04/04/2023 10:36 PM WORKDAY SENIOR ASSOCIATE documented as of this encounter Care Teams Neighborhood Aide Relationship Specialty Start Date End Date Miscellaneous, Not In File PCP - General 07/13/16 Unknown, Notinfile PCP - General 07/05/17 07/18/17 Bernard Jackman MD [address] [place], [place] [id number] PCP - General 07/19/17 07/19/17 Unknown, Notinfile PCP - General 07/20/17 07/23/17 Bernard Jackman MD [address] [place], [place] [id number] PCP - General 07/24/17 12/05/18 Bernard Jackman MD [address] [place], [place] [address] PCP - General 12/06/18 Edyta Saleh, MANAGER OF ENVIRONMENTAL SERVICES [address] [place] [address] Fountain Operator 07/20/20 07/20/20 documented as of this encounter
--- OUTSIDE RECORDS SUMMARY | 2024-10-14 11:31 | XMS_ITS ---
Author Organization [facility] Address [address] [place] [address] Care Team Providers Care Cheese Sprayer Name Role Phone Bernard Jackman MD Primary [...] Dr. Terrell and KEDAR Cardenas contacted via [employer] to scheduled post op follow up appointment. PLMD (periodic limb movement disorder) Assessment & Plan (05/25/2024 8:47 AM IN STORE MARKETER): Patient will continue with Requip 1 mg p.o. at bedtime. Assessment & Plan (04/25/2023 11:28 AM IN STORE MARKETER): PLMS are under control with Requip 1 mg at bedtime. Assessment & Plan (04/19/2022 12:03 PM IN STORE MARKETER): Patient will continue with Requip 1 mg p.o. at bedtime. Assessment & Plan (02/19/2022 12:50 PM IN STORE MARKETER): Patient will continue with Requip 1 mg [...] 10/10/2012 Assessment & Plan (05/25/2024 8:47 AM IN STORE MARKETER): Patient will continue with CPAP therapy at 6-20 cm water pressure. I have sent an order for the patient to receive the correct hose. The patient does have a Angelia machine a not a ResMed. Patient's DME is [employer]. Assessment & Plan (04/25/2023 11:28 AM IN STORE MARKETER): The patient continues to benefit from the auto titrating CPAP unit with a range of 6-20 cm water pressure for ongoing symptoms of DELFINA. His DME supplier is [employer]. He will follow up here in 1 year. Assessment & Plan (04/19/2022 12:03 PM IN STORE MARKETER): Patient will continue with CPAP therapy at 6-20 cm water pressure. Patient's DME is [employer]. Assessment & Plan (02/19/2022 12:51 PM IN STORE MARKETER): Patient will continue with CPAP therapy at [...] receive an order for new supplies. The [employer] company is [employer]. The patient is benefitting from CPAP therapy. [...]
--- OUTSIDE RECORDS SUMMARY | 2024-10-14 11:31 | XMS_ITS | Referral Summary ---
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 Name Role Phone Bernard Jackman MD Primary Care Provid er Encounters Date Type Department Care Team Description 09/08/2024 8:33 AM CDT - 09/08/2024 11:59 PM CDT Hospital Encounter [facility] Diagnostic Imaging [address] [place] [address] Chronic cough; Dysphagia, oropharyngeal phase Discharge Disposition: Discharge to home or self care 09/08/2024 9:00 AM CDT Therapy [facility] Medical Office Bldg 1 Outptnt Speech Therapy [address] [place] [id number] Rosanna Brown FAMILY PROTECTION SPECIALIST Dysphagia, unspecified type [R13.10] (Primary Dx) 08/17/2024 3:40 PM CDT - 08/17/2024 11:59 PM CDT Hospital Encounter [facility] CT [address] [place] [address] Chronic cough Discharge Disposition: Discharge to home or self care 08/17/2024 3:39 PM CDT - 08/17/2024 11:59 PM CDT Hospital Encounter [facility] Respiratory Therapy [address] [place] [address] Chronic cough Discharge Disposition: Discharge to home or self care 08/05/2024 8:31 AM CDT - 08/05/2024 11:59 PM CDT Hospital Encounter [facility] [address] [place] [address] Chronic cough; Dysphagia, oropharyngeal phase Discharge Disposition: Discharge to home or self care 07/31/2024 12:00 PM CDT Lab [facility] Lab [address] [place] [phone] from Last 3 Months Allergies Active Allergy [...] Dr. Terrell and KEDAR Cardenas contacted via [employer] to scheduled post op follow up appointment. PLMD (periodic limb movement disorder) Assessment & Plan (05/25/2024 8:47 AM PUT IN BEAT ADJUSTER): Patient will continue with Requip 1 mg p.o. at bedtime. Assessment & Plan (04/25/2023 11:28 AM PUT IN BEAT ADJUSTER): PLMS are under control with Requip 1 mg at bedtime. Assessment & Plan (04/19/2022 12:03 PM PUT IN BEAT ADJUSTER): Patient will continue with Requip 1 mg p.o. at bedtime. Assessment & Plan (02/19/2022 12:50 PM PUT IN BEAT ADJUSTER): Patient will continue with Requip 1 mg [...] 10/10/2012 Assessment & Plan (05/25/2024 8:47 AM PUT IN BEAT ADJUSTER): Patient will continue with CPAP therapy at 6-20 cm water pressure. I have sent an order for the patient to receive the correct hose. The patient does have a Angelia machine a not a ResMed. Patient's DME is [employer]. Assessment & Plan (04/25/2023 11:28 AM PUT IN BEAT ADJUSTER): The patient continues to benefit from the auto titrating CPAP unit with a range of 6-20 cm water pressure for ongoing symptoms of DELFINA. His DME supplier is [employer]. He will follow up here in 1 year. Assessment & Plan (04/19/2022 12:03 PM PUT IN BEAT ADJUSTER): Patient will continue with CPAP therapy at 6-20 cm water pressure. Patient's DME is [employer]. Assessment & Plan (02/19/2022 12:51 PM PUT IN BEAT ADJUSTER): Patient will continue with CPAP therapy at [...] on file Legal Sex Male 5:55 AM PUT IN BEAT ADJUSTER Gender Identity Male 02/18/2022 7:25 PM PUT IN BEAT ADJUSTER Sexual Orientation Not on file Last Filed Vital Signs Vital Sign Reading Time Taken Comments Blood Pressure 114/64 05/25/2024 7:56 AM PUT IN BEAT ADJUSTER Pulse 64 05/25/2024 7:56 AM PUT IN BEAT ADJUSTER Temperature 36.9 C (98.4 F) 05/25/2024 7:56 AM PUT IN BEAT ADJUSTER Respiratory Rate 18 05/25/2024 7:56 AM PUT IN BEAT ADJUSTER Oxygen Saturation 92% 05/25/2024 7:56 AM PUT IN BEAT ADJUSTER Inhaled Oxygen Concentration - - Weight 109.8 kg (242 lb) 05/26/2024 9:19 AM PUT IN BEAT ADJUSTER Height 177.8 cm (5' 10) 05/26/2024 9:19 AM PUT IN BEAT ADJUSTER Body Mass Index 34.72 05/26/2024 9:19 AM PUT IN BEAT ADJUSTER Plan of Treatment Not on file Medical Devices Implanted Type Area Urgent Care Nurse Practitioner Device Identifier Shelf Expiration Date Model / Serial / Lot [employer] Progrip [id number] Self Fixate Flat Sheet Mesh Surgical Marilyn Pet Latex Free [id number] - [id number] Implanted:Qty : 1 on 08/28/2021 by Jose Galloway MD at [facility] N/A: Umbilical [employer] [id number] 05/15/2024 [id number] / / [id number] Explanted Type Area Urgent Care Nurse Practitioner Device Identifier Shelf Expiration Date Model / Serial / Lot [employer] Progrip [id number] Self Fixate Flat Sheet Mesh Surgical Marilyn Pet Latex Free [id number] - [id number] Explanted:Qty : 1 on 08/28/2021 at [facility] N/A: Umbilical [employer] [id number] 05/15/2024 [id number] / / [id number] Procedures Procedure Name Priority Date/Time Associated Diagnosis [...] CDT PSA DIAGNOSTIC Routine 05/21/2024 1:13 PM PUT IN BEAT ADJUSTER Prostate cancer (HCC) HEPATITIS C ANTIBODY Routine 05/18/2022 9:29 AM PUT IN BEAT ADJUSTER Encounter for screening for other viral diseases [...] Maximiliano Brown M.D. MM: MM Report ID: [id number] Reading Location: [id number] Procedure Note Maximiliano Brown MD - 09/08/2024 [...] Maximiliano Brown M.D. MM: MM Report ID: [id number] Reading Location: [id number] us Alex Hernandez MD IMG FLUOROSCOPY PROCEDURES [...] Maximiliano Brown M.D. MM: MM Report ID: [id number] Reading Location: [place] [address] Procedure Note Maximiliano Brown MD - 08/19/2024 [...] Maximiliano Brown M.D. MM: MM Report ID: [id number] Reading Location: [place] [address] Alex Hernandez MD IM CT PROCEDURES Final Resul t * (ABNORMAL) Pulmonary Function Test - (08/17/2024 4:12 PM CDT) FVC PRE 4.05 3.02 - 5.22 L [facility] FEV1 PRE 3.23 2.19 - 3.91 L [facility] [id number] 79.75 61.54 - 87.86 % [facility] ABM95-41% PRE 3.05 0.94 - 4.19 L/s [facility] PEF PRE 10.51(A) 5.94 - 9.92 L/s [facility] DLCOc SB 21.49 19.66 - 33.52 ml/(min*mm Hg) [facility] DLCO/VA PRE 3.71 2.58 - 4.88 ml/(min*mm Hg*L) [facility] VA 5.79(A) 6.98 - 6.98 L [facility] TLC PRE 6.09 5.97 - 8.28 L [facility] VC PRE 4.05 3.23 - 5.07 L [facility] IC PRE 3.07(A) 3.13 - 3.13 L [facility] FRC PL PRE 3.01 2.74 - 4.71 L [facility] ERV PRE 0.98(A) 1.02 - 1.02 L [facility] RV PRE 2.04 2.03 - 3.38 L [facility] VTG 3.25 L [facility] RAW PRE 1.26(A) 3.06 - 3.06 cmH2O*s/L [facility] Anatomical Region Laterality Modality PFT 08/17/2024 3:42 PM CDT Narrative 08/17/2024 4:50 PM CDT The study showed good patient effort, acceptable and reproducible. Spirometry was unremarkable study. Flow volume loops was unremarkable study. Lung volumes was unremarkable study. Diffusion was unremarkable study. Oxygen saturation was 97% on room air. No previous data to compare, clinical correlation is recommended. Electronically signed, Mahamed Altman MD,[facility] Pulmonary, Critical Care and Sleep Medicine us [...] Christofer Hauser M.D. LORA: LORA Report ID: [id number] Reading Location: [id number] Procedure Note Christofer Hauser MD - 08/05/2024 [...] Christofer Hauser M.D. LORA: LORA Report ID: [id number] Reading Location: [place] [address] Alex Hernandez MD IM FLUOROSCOPY PROCEDURES Fi nal Result * Differential, auto (07/31/2024 12:18 PM CDT) Neutrophil abs 3.66 1.50 - 6.50 K/cumm Comment:Testing performed by : [address] [address] Imm gran abs 0.01 0.00 - 0.10 K/cumm JHONNY Comment:Testing performed by : [address] [address] Lymphocyte abs 1.39 0.80 - 3.30 K/cumm JHONNY Comment:Testing performed by : [address] [address] Monocyte abs 0.59 0.20 - 0.80 K/cumm [facility] Comment:Testing performed by : [address] [address] Eosinophil abs 0.30 0.00 - 0.50 K/cumm [facility] Comment:Testing performed by : [address], [place]., [address] Basophil abs 0.03 0.00 - 0.10 K/cumm [facility] Comment:Testing performed by : [address] [address] Neutrophil pct 61.2 % [facility] Comment: Interpretive Data Percent cell count reference ranges are not reported, since discordance with absolute values may lead to misinterpretation of CBC data. Current Interpretive Data was last revised on 2017. Testing performed by: [address] [address] Imm gran pct 0.2 % [facility] Comment: Interpretive Data Percent cell count reference ranges are not reported, since discordance with absolute values may lead to misinterpretation of CBC data. Current Interpretive Data was last revised on 2017. Testing performed by: [address] [address] Lymphocyte pct 23.2 % [facility] Comment: Interpretive Data Percent cell count reference ranges are not reported, since discordance with absolute values may lead to misinterpretation of CBC data. Current Interpretive Data was last revised on 2017. Testing performed by: [address] [address] Monocyte pct 9.9 % [facility] Comment: Interpretive Data Percent cell count reference ranges are not reported, since discordance with absolute values may lead to misinterpretation of CBC data. Current Interpretive Data was last revised on 2017. Testing performed by: [address] [address] Eosinophil pct 5.0 % [facility] Comment: Interpretive Data Percent cell count reference ranges are not reported, since discordance with absolute values may lead to misinterpretation of CBC data. Current Interpretive Data was last revised on 2017. Testing performed by: [address] [address] Basophil pct 0.5 % JHONNY RODRIGUEZ Comment: Interpretive Data Percent cell count reference ranges are not reported, since discordance with absolute values may lead to misinterpretation of CBC data. Current Interpretive Data was last revised on 2017. Testing performed by: [address] [address] Blood 07/31/2024 12:1 8 PM CDT 07/31/2024 12:35 PM CDT us Alex Hernandez MD LAB BLOOD ORDERABLES Final Re sult JHONNY [address] [facility] Department [place] [address] * (ABNORMAL) Urinalysis reflex to microscopic and culture Urine (07/31/2024 12:18 PM CDT) Color, ur Yellow Yellow Comment:Testing performed by : [address] [address] Clarity, ur Clear Clear JHONNY Comment:Testing performed by : [address] [address] Specific gravity, ur 1.026 1.003 - 1.030 JHONNY Comment:Testing performed by : [address] [address] pH, urine 5.5 JHONNY Comment: Interpretive Data U rine pH is affected by diet, medications, systemic acid-base disturbances, and renal tubular function. pH may affect urinary stone formation. For example, urine pH below 6.0 may help reduce the tendency for calcium phosphate stones and pH greater than 6.0 may reduce the tendency for uric acid stone formation. Source: [employer] Current Interpretive Data was last revised on 2017 Testing performed by: [address] [address] Protein, ur ql Trace(A) Negative JHONNY RODRIGUEZ Comment:Testing performed by : [address] [address] Glucose, ur ql Negative Negative JHONNY RODRIGUEZ Comment:Testing performed by : [address], [place]., [address] Ketones, ur Trace(A) Negative JHONNY RODRIGUEZ Comment:Testing performed by : [facility], [address] [place] [address], [place]., [address] Bilirubin, ur Negative Negative JHONNY Comment:Testing performed by : [address], [place]., [address] Blood, ur Negative Negative JHONNY Comment:Testing performed by : [address], [place]., [address] Urobilinogen, ur 2.0(A) <2.0 mg/dL JHONNY RODRIGUEZ Comment:Testing performed by : [address], [place]., [address] Nitrite, ur Negative Negative JHONNY Comment:Testing performed by : [address], [place]., [address] Leukocyte esterase, ur Negative Negative JHONNY Comment:Testing performed by : [address], [place]., [address] UA reflex comment Reflex to microscopic UA will be performed. JHONNY Comment:Testing performed by : [address], [place]., [address] Urine 07/31/2024 12:1 8 PM CDT 07/31/2024 12:32 PM CDT Alex Hernandez MD LAB MICROBIOLOGY - GENERAL OR DERABLES Final Result JHONNY [address] [facility] Department of Laboratories [place], [place] [id number] * CBC with auto differential (07/31/2024 12:18 PM CDT) WBC 5.98 3.80 - 9.90 K/cumm Comment:Testing performed by : [address], [place]., [address] Hgb 14.4 13.0 - 17.5 g/dL JHONNY RODRIGUEZ Comment:Testing performed by : [address], [address] Hct 43.0 38.9 - 50.3 % JHONNY Comment:Testing performed by : [address], [address] Plt 166 150 - 400 K/cumm JHONNY Comment:Testing performed by : [address], [address] MPV 10.7 9.1 - 12.3 fL JHONNY Comment:Testing performed by : [address], [address] RBC 4.61 4.30 - 5.80 M/cumm JHONNY Comment:Testing performed by : [address], [address] MCV 93.3 81.3 - 96.4 fL JHONNY Comment:Testing performed by : [address], [address] MCH 31.2 27.1 - 33.3 pg JHONNY Comment:Testing performed by : [address], [address] MCHC 33.5 32.3 - 35.7 g/dL JHONNY Comment:Testing performed by : [address], [address] RDW CV 12.7 11.1 - 14.9 % JHONNY Comment:Testing performed by : [address], [address] RDW SD 43.1 35.7 - 48.1 fL JHONNY Comment:Testing performed by : [address], [address] NRBC abs 0.00 0.00 - 0.01 K/cumm JHONNY Comment:Testing performed by : [address], [address] Blood 07/31/2024 12:1 8 PM CDT 07/31/2024 12:35 PM CDT us Alex Hernandez MD LAB BLOOD ORDERABLES Final Re sult ARTUR[address] [address] * (ABNORMAL) Urinalysis, microscopic only (07/31/2024 12:18 PM CDT) WBC, ur 0-5 0 - 5 /HPF Comment:Testing performed by : [address] [address] RBC, ur 0-2 0 - 2 /HPF JHONNY Comment:Testing performed by : [facility], [address] [place] [address]., [address] Mucous, ur Present(A) JHONNY Comment:Testing performed by : [address] [address] Culture Reflex Comment Reflex conditions for urine culture (WBC >10) not met. JHONNY Comment:Testing performed by : [address] [address] Urine 07/31/2024 12:1 8 PM CDT 07/31/2024 12:32 PM CDT us Alex Hernandez MD LAB URINE ORDERABLES Final Re sult Performing Organization Address [facility] Co de Phone Number [address] [address] * TSH (07/31/2024 12:18 PM CDT) Thyroid Stimulating Hormone 1.62 0.30 - 4.20 mcIUnit/mL Comment:Testing performed by : [address] [address] Blood 07/31/2024 12:1 8 PM CDT 07/31/2024 12:35 PM CDT Alex Hernandez MD LAB BLOOD ORDERABLES Final Re sult Performing Organization Address [facility] Co de Phone Number ARTUR[address] [address] * T4, free (07/31/2024 12:18 PM CDT) Pathologist [facility] Free T4 1.11 0.90 - 1.70 ng/dL Comment:Testing performed by : [address] [address] Blood 07/31/2024 12:1 8 PM CDT 07/31/2024 12:35 PM CDT Alex Hernandez MD LAB BLOOD ORDERABLES Final Re sult Performing Organization Address [facility] Co de Phone Number ARTUR[address] [place] [employer] [place] [address] * Hemoglobin A1c (07/31/2024 12:18 PM CDT) [facility] Hgb A1C 5.4 4.0 - 5.6 % Comment:Testing performed by : [address] [address] Estimated Average Glucose 108 mg/dL [facility] Comment: The ADA recommends reporting an estimated Average Glucose (eAG) with all Hemoglobin A1c results using the equation derived from a study of 507 normal and diabetic adults. Minority populations were underrepresented and children were not included. (Diabetes Care 31:1466-3403, 2008). The eAG is not equivalent to a fasting glucose. Testing performed by: [address] [address] Blood 07/31/2024 12:1 8 PM CDT 07/31/2024 12:35 PM CDT Alex Hernandez MD LAB BLOOD ORDERABLES Final Re sult Performing Organization Address [facility] Co de Phone Number [facility] [address] [facility] [employer] [place] [address] * Folate (07/31/2024 12:18 PM CDT) [facility] Folic acid >20.0 >=5.0 ng/mL Comment:Testing performed by : [address] [address] Blood 07/31/2024 12:1 8 PM CDT 07/31/2024 12:35 PM CDT Alex Hernandez MD LAB BLOOD ORDERABLES Final Re sult Performing Organization Address [facility]/ZIP Co de Phone Number [address] [address] * Vitamin B12 (07/31/2024 12:18 PM CDT) Vitamin B12 609 [address] - 1,250 pg/mL Comment:Testing performed by : [address] [address] Blood 07/31/2024 12:1 8 PM CDT 07/31/2024 12:35 PM CDT Alex Hernandez MD LAB BLOOD ORDERABLES Final Re sult Performing Organization Address [facility] Co de Phone Number [address] [address] * (ABNORMAL) Lipid panel (07/31/2024 12:18 PM [...] last revised on 2017. Testing performed by: [address] [address] Triglycerides 323(H) <=149 mg/dL [facility] Comment: Interpretive Data Ages < or = [...] last revised on 2017. Testing performed by: [address] [address] HDL 53 >=40 mg/dL JHONNY Comment: Interpretive [...] last revised on 2017. Testing performed by: [facility], [address] [place] [address]., [address] LDL, calculated 103 <=129 mg/dL JHONNY Comment: [...] last revised on 2023. Testing performed by: [address] [address] Non-HDL Cholesterol 157 mg/dL JHONNY RODRIGUEZ Comment: [...] last revised on 2017. Testing performed by: [address] [address] Chol/HDL ratio 4 JHONNY Comment:Testing performed by : [address] [address] Blood 07/31/2024 12:1 8 PM CDT 07/31/2024 12:35 PM CDT us Alex Henrandez MD LAB BLOOD ORDERABLES Final Re sult JHONNY [address] [facility] Department [place] [address] * PSA diagnostic (05/21/2024 1:13 PM PUT IN BEAT ADJUSTER) PSA-Total <0.10 <=6.20 ng/mL Comment: Interpretive Data [...] data last revised 21. Testing performed by: [facility], [address] [place] [address], [place]., [address] Blood 05/21/2024 1:13 PM PUT IN BEAT ADJUSTER 05/21/2024 2:21 PM PUT IN BEAT ADJUSTER Jose Mayfield MD LAB BLOOD ORDERABLES Final Resul t Performing Organization Address [facility] Co de Phone Number [facility] [address] [facility] [employer] [place] [address] * Hepatitis C antibody (05/18/2022 9:29 AM PUT IN BEAT ADJUSTER) Hep C Ab Nonreactive Nonreactive JHONNY Comment: [...] revised on 2019. Blood 05/18/2022 9:29 AM PUT IN BEAT ADJUSTER 05/18/2022 12:45 PM PUT IN BEAT ADJUSTER Bernard Jackman MD LAB MICROBIOLOGY - G ENERAL ORDERABLES Final Result Performing Organization Address [facility] de Phone Number [place] [phone] [facility] [place] [address] * Colonoscopy (07/12/2015) Anatomical Region Laterality Modality Other Historical Provider ENDOSCOPY PROCEDURES Rachel l Result from Last 3 Months or Most Recently Relevant to Health Maintenance Insurance [employer] [facility] MEDICARE HMO FOR LIFE [facility] [place] [id number] [employer] Care Teams [employer] Track [employer] Coach Relationship Specialty Start Date End Date Bernard Jackman MD [address] [place] [address] PCP - General 12/06/18
--- OUTSIDE RECORDS SUMMARY | 2024-10-14 11:31 | XMS_ITS | Clinical Summary ---
Author Organization [facility] Address [address] [place] [address] Care Team Providers Care Slurry Tank Operator Name Role Phone Bernard Jackman MD [...] Dr. Terrell and KEDAR Cardenas contacted via [employer] to scheduled post op follow up appointment. PLMD (periodic limb movement disorder) Assessment & Plan (05/25/2024 8:47 AM ENERGY CONSERVATION DIRECTOR): Patient will continue with Requip 1 mg p.o. at bedtime. Assessment & Plan (04/25/2023 11:28 AM ENERGY CONSERVATION DIRECTOR): PLMS are under control with Requip 1 mg at bedtime. Assessment & Plan (04/19/2022 12:03 PM ENERGY CONSERVATION DIRECTOR): Patient will continue with Requip 1 mg p.o. at bedtime. Assessment & Plan (02/19/2022 12:50 PM ENERGY CONSERVATION DIRECTOR): Patient will continue with Requip 1 mg [...] 10/10/2012 Assessment & Plan (05/25/2024 8:47 AM ENERGY CONSERVATION DIRECTOR): Patient will continue with CPAP therapy at 6-20 cm water pressure. I have sent an order for the patient to receive the correct hose. The patient does have a Angelia machine a not a ResMed. Patient's DME is [employer]. Assessment & Plan (04/25/2023 11:28 AM ENERGY CONSERVATION DIRECTOR): The patient continues to benefit from the auto titrating CPAP unit with a range of 6-20 cm water pressure for ongoing symptoms of DELFINA. His DME supplier is [employer]. He will follow up here in 1 year. Assessment & Plan (04/19/2022 12:03 PM ENERGY CONSERVATION DIRECTOR): Patient will continue with CPAP therapy at 6-20 cm water pressure. Patient's DME is [employer]. Assessment & Plan (02/19/2022 12:51 PM ENERGY CONSERVATION DIRECTOR): Patient will continue with CPAP therapy at [...] humidity and a full set of supplies. [employer] provider Plus. The patient and I also [...] Team Description 09/08/2024 9:00 AM CDT Therapy [facility] Medical Office Bldg 1 Outptnt Speech Therapy [address] [place] [address] [place] [address] Rosanna Brown, PANDA Dysphagia, unspecified type [R13.10] (Primary Dx) 09/08/2024 8:33 AM CDT - 09/08/2024 11:59 PM CDT Hospital Encounter [facility] Diagnostic Imaging [address] [place] [address] Chronic cough; Dysphagia, oropharyngeal phase Discharge Disposition: Discharge to home or self care 08/17/2024 3:40 PM CDT - 08/17/2024 11:59 PM CDT Hospital [place] [address] [place] [address] Chronic cough Discharge Disposition: Discharge to home or self care 08/17/2024 3:39 PM CDT - 08/17/2024 11:59 PM CDT Hospital Encounter [facility] Respiratory Therapy [address] [place] [address] Chronic cough Discharge Disposition: Discharge to home or self care 08/05/2024 8:31 AM CDT - 08/05/2024 11:59 PM CDT Hospital Encounter [facility] Diagnostic Imaging [address] [place] [address] Chronic cough; Dysphagia, oropharyngeal phase Discharge Disposition: Discharge to home or self care 07/31/2024 12:00 PM CDT Lab [facility] Lab [address] [place] [address] from Last 3 Months Immunizations Immunization Administration [...] on file Legal Sex Male 5:55 AM ENERGY CONSERVATION DIRECTOR Gender Identity Male 02/18/2022 7:25 PM ENERGY CONSERVATION DIRECTOR Sexual Orientation Not on file Obstetrics History Last Filed Vital Signs Vital Sign Reading Time Taken Comments Blood Pressure 114/64 05/25/2024 7:56 AM ENERGY CONSERVATION DIRECTOR Pulse 64 05/25/2024 7:56 AM ENERGY CONSERVATION DIRECTOR Temperature 36.9 C (98.4 F) 05/25/2024 7:56 AM ENERGY CONSERVATION DIRECTOR Respiratory Rate 18 05/25/2024 7:56 AM ENERGY CONSERVATION DIRECTOR Oxygen Saturation 92% 05/25/2024 7:56 AM ENERGY CONSERVATION DIRECTOR Inhaled Oxygen Concentration - - Weight 109.8 kg (242 lb) 05/26/2024 9:19 AM ENERGY CONSERVATION DIRECTOR Height 177.8 cm (5' 10) 05/26/2024 9:19 AM ENERGY CONSERVATION DIRECTOR Body Mass Index 34.72 05/26/2024 9:19 AM ENERGY CONSERVATION DIRECTOR Plan of Treatment Health Maintenance Due Date [...] history exists Medical Devices Implanted Type Area Arts Manager Device Identifier Shelf Expiration Date Model / Serial / Lot [employer] Progrip [id number] Self Fixate Flat Sheet Mesh Surgical Marilyn Pet Latex Free [id number] - [id number] Implanted:Qty : 1 on 08/28/2021 by Jose Galloway MD at [facility] N/A: Umbilical [employer] [id number] 05/15/2024 [id number] / / [id number] Explanted Type Area Arts Manager Device Identifier Shelf Expiration Date Model / Serial / Lot Medtronic Inc Progrip [id number] Self Fixate Flat Sheet Mesh Surgical Marilyn Pet Latex Free [id number] - [id number] Explanted:Qty : 1 on 08/28/2021 at [facility] N/A: Umbilical [employer] [id number] 05/15/2024 [id number] / / [id number] Procedures Procedure Name Priority Date/Time Associated Diagnosis [...] CDT PSA DIAGNOSTIC Routine 05/21/2024 1:13 PM ENERGY CONSERVATION DIRECTOR Prostate cancer (HCC) HEPATITIS C ANTIBODY Routine 05/18/2022 9:29 AM ENERGY CONSERVATION DIRECTOR Encounter for screening for other viral diseases [...] Maximiliano Brown M.D. MM: MM Report ID: [id number] Reading Location: [id number] Procedure Note Maximiliano Brown MD - 09/08/2024 [...] Maximiliano Brown M.D. MM: MM Report ID: [id number] Reading Location: [id number] Alex Hernandez MD IMG FLUOROSCOPY PROCEDURES Fi [...] Maximiliano Brown M.D. MM: MM Report ID: [id number] Reading Location: [place] [address] Procedure Note Maximiliano Brown MD - 08/19/2024 [...] Maximiliano Brown M.D. MM: MM Report ID: [id number] Reading Location: [place] [address] Alex Hernandez MD IM CT PROCEDURES Final Resul t * (ABNORMAL) Pulmonary Function Test - (08/17/2024 4:12 PM CDT) FVC PRE 4.05 3.02 - 5.22 L [facility] FEV1 PRE 3.23 2.19 - 3.91 L [facility] [id number] 79.75 61.54 - 87.86 % [facility] AIB72-39% PRE 3.05 0.94 - 4.19 L/s [facility] PEF PRE 10.51(A) 5.94 - 9.92 L/s [facility] DLCOc SB 21.49 19.66 - 33.52 ml/(min*mm Hg) [facility] DLCO/VA PRE 3.71 2.58 - 4.88 ml/(min*mm Hg*L) [facility] VA 5.79(A) 6.98 - 6.98 L [facility] TLC PRE 6.09 5.97 - 8.28 L [facility] VC PRE 4.05 3.23 - 5.07 L [facility] IC PRE 3.07(A) 3.13 - 3.13 L [facility] FRC PL PRE 3.01 2.74 - 4.71 L [facility] ERV PRE 0.98(A) 1.02 - 1.02 L [facility] RV PRE 2.04 2.03 - 3.38 L [facility] VTG 3.25 L [facility] RAW PRE 1.26(A) 3.06 - 3.06 cmH2O*s/L [facility] Anatomical Region Laterality Modality PFT 08/17/2024 3:42 PM CDT Narrative 08/17/2024 4:50 PM CDT The study showed good patient effort, acceptable and reproducible. Spirometry was unremarkable study. Flow volume loops was unremarkable study. Lung volumes was unremarkable study. Diffusion was unremarkable study. Oxygen saturation was 97% on room air. No previous data to compare, clinical correlation is recommended. Electronically signed, Mahamed Altman MD,[facility], [facility] Pulmonary, Critical Care and Sleep Medicine us Alex eHrnandez MD PFT ORDERABLES Final Result * FL [...] Christofer Hauser M.D. LORA: LORA Report ID: [id number] Reading Location: [id number] Procedure Note Christofer Hauser MD - 08/05/2024 [...] Christofer Hauser M.D. LORA: LORA Report ID: [id number] Reading Location: [place] [address] Alex Hernandez MD IM FLUOROSCOPY PROCEDURES Fi nal Result * Differential, auto (07/31/2024 12:18 PM CDT) Neutrophil abs 3.66 1.50 - 6.50 K/cumm Comment:Testing performed by : [address] [address] Imm gran abs 0.01 0.00 - 0.10 K/cumm JHONNY Comment:Testing performed by : [address] [address] Lymphocyte abs 1.39 0.80 - 3.30 K/cumm JHONNY Comment:Testing performed by : [address] [address] Monocyte abs 0.59 0.20 - 0.80 K/cumm [facility] Comment:Testing performed by : [address] [address] Eosinophil abs 0.30 0.00 - 0.50 K/cumm [facility] Comment:Testing performed by : [address] [address] Basophil abs 0.03 0.00 - 0.10 K/cumm [facility] Comment:Testing performed by : [address] [address] Neutrophil pct 61.2 % [facility] Comment: Interpretive Data Percent cell count reference ranges are not reported, since discordance with absolute values may lead to misinterpretation of CBC data. Current Interpretive Data was last revised on 2017. Testing performed by: [address] [address] Imm gran pct 0.2 % [facility] Comment: Interpretive Data Percent cell count reference ranges are not reported, since discordance with absolute values may lead to misinterpretation of CBC data. Current Interpretive Data was last revised on 2017. Testing performed by: [address] [address] Lymphocyte pct 23.2 % [facility] Comment: Interpretive Data Percent cell count reference ranges are not reported, since discordance with absolute values may lead to misinterpretation of CBC data. Current Interpretive Data was last revised on 2017. Testing performed by: [address] [address] Monocyte pct 9.9 % JHONNY Comment: Interpretive Data Percent cell count reference ranges are not reported, since discordance with absolute values may lead to misinterpretation of CBC data. Current Interpretive Data was last revised on 2017. Testing performed by: [address] [address] Eosinophil pct 5.0 % JHONNY Comment: Interpretive Data Percent cell count reference ranges are not reported, since discordance with absolute values may lead to misinterpretation of CBC data. Current Interpretive Data was last revised on 2017. Testing performed by: [address] [address] Basophil pct 0.5 % JHONNY Comment: Interpretive Data Percent cell count reference ranges are not reported, since discordance with absolute values may lead to misinterpretation of CBC data. Current Interpretive Data was last revised on 2017. Testing performed by: [address] [address] Blood 07/31/2024 12:1 8 PM CDT 07/31/2024 12:35 PM CDT us Alex Hernandez MD LAB BLOOD ORDERABLES Final Re sult JHONNY [address] [facility] Department of Laboratories [place], [place] [id number] * (ABNORMAL) Urinalysis reflex to microscopic and culture Urine (07/31/2024 12:18 PM CDT) Color, ur Yellow Yellow Comment:Testing performed by : [address] [address] Clarity, ur Clear Clear JHONNY Comment:Testing performed by : [address] [address] Specific gravity, ur 1.026 1.003 - 1.030 JHONNY RODRIGUEZ Comment:Testing performed by : [address] [address] pH, urine 5.5 JHONNY Comment: Interpretive Data U rine pH is affected by diet, medications, systemic acid-base disturbances, and renal tubular function. pH may affect urinary stone formation. For example, urine pH below 6.0 may help reduce the tendency for calcium phosphate stones and pH greater than 6.0 may reduce the tendency for uric acid stone formation. Source: [facility] Confer Current Interpretive Data was last revised on 2017 Testing performed by: [facility], [address] [place] [address], [place]., [address] Protein, ur ql Trace(A) Negative JHONNY Comment:Testing performed by : [facility], [address] [place] [address], [place]., [address] Glucose, ur ql Negative Negative JHONNY Comment:Testing performed by : [address], [place]., [address] Ketones, ur Trace(A) Negative JHONNY Comment:Testing performed by : [address], [place]., [address] Bilirubin, ur Negative Negative JHONNY Comment:Testing performed by : [address], [place]., [address] Blood, ur Negative Negative JHONNY Comment:Testing performed by : [address], [place]., [address] Urobilinogen, ur 2.0(A) <2.0 mg/dL JHONNY Comment:Testing performed by : [address], [place]., [address] Nitrite, ur Negative Negative JHONNY Comment:Testing performed by : [address] [address] Leukocyte esterase, ur Negative Negative JHONNY Comment:Testing performed by : [address], [place]., [address] UA reflex comment Reflex to microscopic UA will be performed. JHONNY Comment:Testing performed by : [address], [place]., [address] Urine 07/31/2024 12:1 8 PM CDT 07/31/2024 12:32 PM CDT us Alex Hernandez MD LAB MICROBIOLOGY - GENERAL OR DERABLES Final Result JHONNY 45[address] [facility] Department [place] [address] * CBC with auto differential (07/31/2024 12:18 PM CDT) WBC 5.98 3.80 - 9.90 K/cumm Comment:Testing performed by : [address] [address] Hgb 14.4 13.0 - 17.5 g/dL JHONNY Comment:Testing performed by : [address] [address] Hct 43.0 38.9 - 50.3 % JHONNY Comment:Testing performed by : [address] [address] Plt 166 150 - 400 K/cumm JHONNY Comment:Testing performed by : [address] [address] MPV 10.7 9.1 - 12.3 fL JHONNY Comment:Testing performed by : [address] [address] RBC 4.61 4.30 - 5.80 M/cumm JHONNY Comment:Testing performed by : [address] [address] MCV 93.3 81.3 - 96.4 fL JHONNY Comment:Testing performed by : [address] [address] MCH 31.2 27.1 - 33.3 pg JHONNY Comment:Testing performed by : [address] [address] MCHC 33.5 32.3 - 35.7 g/dL JHONNY Comment:Testing performed by : [address] [address] RDW CV 12.7 11.1 - 14.9 % JHONNY Comment:Testing performed by : [address] [address] RDW SD 43.1 35.7 - 48.1 fL JHONNY Comment:Testing performed by : [address] [address] NRBC abs 0.00 0.00 - 0.01 K/cumm JHONNY Comment:Testing performed by : [address] [address] Blood 07/31/2024 12:1 8 PM CDT 07/31/2024 12:35 PM CDT Alex Hernandez MD LAB BLOOD ORDERABLES Final Re sult Performing Organization Address [facility] Co de Phone Number [facility] [place] [address] * (ABNORMAL) Urinalysis, microscopic only (07/31/2024 12:18 PM CDT) WBC, ur 0-5 0 - 5 /HPF Comment:Testing performed by : [address] [address] RBC, ur 0-2 0 - 2 /HPF JHONNY Comment:Testing performed by : [address] [address] Mucous, ur Present(A) JHONNY Comment:Testing performed by : [address] [address] Culture Reflex Comment Reflex conditions for urine culture (WBC >10) not met. JHONNY Comment:Testing performed by : [address] [address] Urine 07/31/2024 12:1 8 PM CDT 07/31/2024 12:32 PM CDT us Alex Hernandez MD LAB URINE ORDERABLES Final Re sult Performing Organization Address [facility] Co de Phone Number JHONNY [address] [facility] [place] [address] * TSH (07/31/2024 12:18 PM CDT) Thyroid Stimulating Hormone 1.62 0.30 - 4.20 mcIUnit/mL Comment:Testing performed by : [address] [address] Blood 07/31/2024 12:1 8 PM CDT 07/31/2024 12:35 PM CDT Alex Hernandez MD LAB BLOOD ORDERABLES Final Re sult Performing Organization Address [facility] Co de Phone Number [address] [address] * T4, free (07/31/2024 12:18 PM CDT) Free T4 1.11 0.90 - 1.70 ng/dL Comment:Testing performed by : [address] [address] Blood 07/31/2024 12:1 8 PM CDT 07/31/2024 12:35 PM CDT Alex Hernandez MD LAB BLOOD ORDERABLES Final Re sult Performing Organization Address [facility] de Phone Number [address] [address] * Hemoglobin A1c (07/31/2024 12:18 PM CDT) Pathologist [facility] Hgb A1C 5.4 4.0 - 5.6 % Comment:Testing performed by : [address] [address] Estimated Average Glucose 108 mg/dL JHONNY Comment: The ADA recommends reporting an estimated Average Glucose (eAG) with all Hemoglobin A1c results using the equation derived from a study of 507 normal and diabetic adults. Minority populations were underrepresented and children were not included. (Diabetes Care 31:6216-4864, 2008). The eAG is not equivalent to a fasting glucose. Testing performed by: [address] [address] Blood 07/31/2024 12:1 8 PM CDT 07/31/2024 12:35 PM CDT Alex Hernandez MD LAB BLOOD ORDERABLES Final Re sult Performing Organization Address [facility] Co de Phone Number JHONNY [address] [place] [address] * Folate (07/31/2024 12:18 PM CDT) Folic acid >20.0 >=5.0 ng/mL Comment:Testing performed by : [facility], [address] [place] [address]., [address] Blood 07/31/2024 12:1 8 PM CDT 07/31/2024 12:35 PM CDT Alex Hernandez MD LAB BLOOD ORDERABLES Final Re sult Performing Organization Address [facility] Co de Phone Number ARTUR[address] [place] [address] * Vitamin B12 (07/31/2024 12:18 PM CDT) Vitamin B12 609 230 - 1,250 pg/mL Comment:Testing performed by : [address] [address] Blood 07/31/2024 12:1 8 PM CDT 07/31/2024 12:35 PM CDT Alex Hernandez MD LAB BLOOD ORDERABLES Final Re sult Performing Organization Address [facility] Co de Phone Number ARTUR[address] [place] [address] * (ABNORMAL) Lipid panel (07/31/2024 12:18 PM [...] last revised on 2017. Testing performed by: [address] [address] Triglycerides 323(H) <=149 mg/dL JHONNY Comment: Interpretive [...] last revised on 2017. Testing performed by: [address] [address] HDL 53 >=40 mg/dL JHONNY Comment: Interpretive [...] last revised on 2017. Testing performed by: [address] [address] LDL, calculated 103 <=129 mg/dL JHONNY Comment: [...] last revised on 2023. Testing performed by: [address] [address] Non-HDL Cholesterol 157 mg/dL JHONNY RODRIGUEZ Comment: [...] last revised on 2017. Testing performed by: [address] [address] Chol/HDL ratio 4 JHONNY Comment:Testing performed by : [address] [address] Blood 07/31/2024 12:1 8 PM CDT 07/31/2024 12:35 PM CDT us Alex Hernandez MD LAB BLOOD ORDERABLES Final Re sult JHONNY RODRIGUEZ [address] [facility] Department [place] [address] * PSA diagnostic (05/21/2024 1:13 PM ENERGY CONSERVATION DIRECTOR) PSA-Total <0.10 <=6.20 ng/mL Comment: Interpretive Data [...] performed by: [facility], [address] [place] [address]., [address] Blood 05/21/2024 1:13 PM ENERGY CONSERVATION DIRECTOR 05/21/2024 2:21 PM ENERGY CONSERVATION DIRECTOR Jose Mayfield MD LAB BLOOD ORDERABLES Final Resul t Performing Organization Address [facility] Co de Phone Number [place] [phone] [facility] [place] [address] * Hepatitis C antibody (05/18/2022 9:29 AM ENERGY CONSERVATION DIRECTOR) Pathologist [facility] Hep C Ab Nonreactive Nonreactive JHONNY Comment: [...] revised on 2019. Blood 05/18/2022 9:29 AM ENERGY CONSERVATION DIRECTOR 05/18/2022 12:45 PM ENERGY CONSERVATION DIRECTOR Bernard Jackman MD LAB MICROBIOLOGY - G ENERAL ORDERABLES Final Result Performing Organization Address City/[facility]/ZIP Co de Phone Number [place] [phone] [facility] [place] [address] * Colonoscopy (07/12/2015) Anatomical Region Laterality Modality Other us Historical Provider ENDOSCOPY PROCEDURES Rachel l Result from Last 3 Months or Most Recently Relevant to Health Maintenance Insurance [employer] FOR LIFE [employer] MEDICARE HMO [employer] FOR LIFE Member Subscriber Plan / Payer (Ef fective 2020-Present) Name:Isaias Wright Relation to Subscriber:Self Name:Isaias Wright Payer ID:[id number] (NAIC) Group ID:Not on file Type: Address: [place] [phone] [place] [address] FOR LIFE Care Teams Slurry Tank Operator Relationship Specialty Start Date End Date Brenard Jackman MD [address] [facility] [place] [address] PCP - General 12/06/18
--- OUTSIDE RECORDS SUMMARY | 2024-10-14 11:31 | XMS_ITS | Encounter Summary ---
Author Organization [facility] Address [address] [facility] [place] [address] Care Team Providers Care Scientific Specialist Name Role Phone Unavailable Primary Care Provider Unavailabl e Encounter Details Date Type Department Care Team (Late st Contact Info) Description 10/09/2019 Lab Requisition [facility] DermPath Lab [address] [facility], [facility] [place] [address] Skylar Wright DO [address] [facility] [address] [place] [address] Social History Tobacco Use Types Packs/Day Years [...] AM CDT) Case Report Dermatopathology Report Case: [id number] Authorizing Provider: Skylar Wright DO Collected: 10/08/2019 12:00 AM Ordering Location: [facility] Care DermPath Lab Received: 10/09/2019 09:26 [...] specimen consists of a shave biopsy measuring [id number] mm. Jar 0. 0 5:50 PM CDT [...] determined by the Dermatopathology Laboratory at [facility], directed by Dr. Kike Oswald. These tests need not be, and therefore are not, approved by the [place] Food and Drug Administration. The tests are used for clinical purposes. Billing Codes Specimen Charges Stain Charges 26895 84114 1 1 0 5:50 PM CDT DERMATOPATHOLOGY LABORATORY Embedded Images 0 5:50 PM CDT DERMATOPATHOLOGY LABORATORY Pathology/Cytology TISSUE SPECIMEN FROM SKIN / Unknown 10/08/2019 10/09/2019 9:26 AM CDT Miscellaneous samples (specimen) TISSUE SPECIMEN FROM SKIN / Unknown 10/08/2019 10/09/2019 9:26 AM CDT us Skylar Wright DO LAB - PATHOLOGY/CYTOLOGY ORDERABLES Final Result DERMATOPATHOLOGY LABORATORY [facility] - Department of Dermatology [facility] [employer] [facility] [address] [place] [address] documented in this encounter Visit Diagnoses Not on filedocumented in this encounter
--- OUTSIDE RECORDS SUMMARY | 2024-10-14 11:31 | XMS_ITS | Clinical Summary ---
Author Organization [facility] Care Team Providers Care Supervisor Heading Name Role Phone Unavailable Primary Care Provider Unavailabl e Social History Tobacco Use Types Packs/Day Years Used Date Smoking Tobacco: Never Assessed Sex and Gender Information Value Date Recorded Sex Assigned at Not on file Legal Sex Male 2:11 PM DIRECTOR OF REHABILITATION Gender Identity Not on file Sexual Orientation [...]
--- OUTSIDE RECORDS SUMMARY | 2024-10-14 11:31 | XMS_ITS | Encounter Summary ---
Author Organization [facility] Address [address] [place] [address] Care Team Providers Care Field Gauger Name Role Phone Unavailable Primary Care Provider Unavailabl e Encounter Details Date Type Department Care Team (Late st Contact Info) Description 06/20/2023 Lab Requisition [facility] - DermPath Lab [address] [place] [id number] Ayden Bright MD [facility] [address] [place] [phone] Neoplasm of uncertain behavior of skin [...] Comments DERMATOPATHOLOGY Routine 06/20/2023 12:0 0 AM RUBBER TUBING SPLICER Neoplasm of uncertain behavior of skin documented in this encounter Results * DERMATOPATHOLOGY (06/20/2023 12:00 AM RUBBER TUBING SPLICER) Case Report Dermatopathology Report Case: [id number] Authorizing Provider: Ayden Bright MD Collected: 06/20/2023 12:00 AM Ordering Location: [facility]ician [facility] - Received: 06/21/2023 12:14 PM DermPath Lab [...] characteristic determined by the Dermatopathology Laboratory at [facility], directed by Dr. Kike Oswald. These tests need not be, and therefore are not, approved by the [place] Food and Drug Administration. The tests are used for clinical purposes. Billing Codes Specimen Charges Stain Charges [id number] 1 3:41 PM CDT DERMATOPATHOLOGY LABORATORY Embedded Images 3:41 PM T DERMATOPATHOLOGY LABORATORY Pathology/Cytolog y TISSUE SPECIMEN FROM SKIN / Unknown 06/20/2023 06/21/2023 12:14 PM RUBBER TUBING SPLICER Ayden Bright MD LAB - PATHOLOGY/CYTOLOGY ORDLaila AVENDAÑO Final Result DERMATOPATHOLOGY LABORATORY [facility] - Department of Dermatology [facility] [address] [place] [address], [address] Floor [address] [phone] documented in this encounter Visit Diagnoses Diagnosis Neoplasm of uncertain behavior of skin documented in this encounter
--- OUTSIDE RECORDS SUMMARY | 2024-10-14 11:31 | XMS_ITS | Clinical Summary ---
Author Organization [facility] Address [address] [address] Care Team Providers Care Mounter Sousaphones Name Role Phone Unavailable Primary Care Provider Unavailabl e Source Comments [facility],non-owned Affiliates and Associated Physician Practices is amultiple site organization consisting of ambulatory clinics and hospital sitesin [place], [place], [place] and [place]. This disclosure is being madepursuant to the Care Everywhere program and may not contain all information available regarding this patient. Last updated 18.[facility] [employer] Social History Tobacco Use Types Packs/Day Years [...] age to complete this topic Insurance MEDICARE Hospital/[facility] Address: [address] [place] [address] [facility] [employer] MEDICARE ADV HMO & PPO HUMAN SELF PAY NO INSURANCE Member Subscriber Plan / Payer (Ef fective for All Dates) Name:Isaias Wright Member ID:Not on file Relation to Subscriber:Not on file Name:ISAIAS WRIGHT Subscriber ID:Not on file (Home) Address: [address] [place] [id number] Payer ID:Not on file Group ID:Not on file Type:Self Pay Address: [place], [place]
--- OUTSIDE RECORDS SUMMARY | 2024-10-14 11:31 | XMS_ITS | Clinical Summary ---
Author Organization [facility] Address [address] [place] [address] Care Team Providers Care Seed Corn Production Manager Name Role Phone Bernard Jackman MD Primary Care Provider + [phone] Allergies Active Allergy Reactions Criticality Noted Date [...] Comments Blood Pressure 125/76 06/02/2022 7:03 PM INSTRUCTOR KNITTING Pulse 68 06/02/2022 7:03 PM INSTRUCTOR KNITTING Temperature 36.4 C (97.5 F) 06/02/2022 7:03 PM INSTRUCTOR KNITTING Respiratory Rate 20 06/02/2022 7:03 PM INSTRUCTOR KNITTING Oxygen Saturation 96% 06/02/2022 7:03 PM INSTRUCTOR KNITTING Inhaled Oxygen Concentration - - Weight 108 kg (238 lb) 06/02/2022 7:03 PM INSTRUCTOR KNITTING Height 177.8 cm (5' 10) 06/02/2022 7:03 PM INSTRUCTOR KNITTING Body Mass Index 34.15 06/02/2022 7:03 PM INSTRUCTOR KNITTING Plan of Treatment Health Maintenance Due Date [...] age to complete this topic Insurance MEDICARE [facility] Care Teams Seed Corn Production Manager Relationship Specialty Start Date End Date Bernard Jackman MD [address] [place], [place] [phone] PCP - General FAMILY PRACTICE 06/02/22
== END 2024-10-14 11:28 | disposition home or self-care (01) ==
PROVIDERS: PCP Internal Medicine; Visit Provider Internal Medicine
DX: M54.6 Pain in thoracic spine (principal); Z95.2 Presence of prosthetic heart valve
CPT/HCPCS: 71046; 72072

== ENCOUNTER 2025-01-19 07:32 | Outpatient (CLI) | payer MEDICARE, OTHER, SELFPAY ==
--- OUTSIDE RECORDS SUMMARY | 2025-01-19 07:37 | XMS_ITS | Encounter Summary ---
Author Organization [facility] Address [address] [facility] [place] [address] Care Team Providers Care Fowl Blood Tester Name Role Phone Unavailable Primary Care Provider Unavailabl e Encounter Details Date Type Department Care Team (Late st Contact Info) Description 10/09/2019 Lab Requisition [facility] DermPath Lab [address] [facility] [place] [address] Skylar Wright DO [address] [facility] [address] [place] [address] Social History Tobacco Use Types Packs/Day Years [...] AM CDT) Case Report Dermatopathology Report Case: [id number] Authorizing Provider: Skylar Wright DO Collected: 10/08/2019 12:00 AM Ordering Location: [facility] Care DermPath Lab Received: 10/09/2019 09:26 [...] specimen consists of a shave biopsy measuring 74c67o4 mm. Jar 0. 0 5:50 PM CDT [...] characteristic determined by the Dermatopathology Laboratory at [facility], directed by Dr. Kike Oswald. These tests need not be, and therefore are not, approved by the [place] Food and Drug Administration. The tests are used for clinical purposes. Billing Codes Specimen Charges Stain Charges [id number] 74631 1 1 0 5:50 PM CDT DERMATOPATHOLOGY LABORATORY Embedded Images 0 5:50 PM CDT DERMATOPATHOLOGY LABORATORY Pathology/Cytology TISSUE SPECIMEN FROM SKIN / Unknown 10/08/2019 10/09/2019 9:26 AM CDT Miscellaneous samples (specimen) TISSUE SPECIMEN FROM SKIN / Unknown 10/08/2019 10/09/2019 9:26 AM CDT us Skylar Wright DO LAB - PATHOLOGY/CYTOLOGY ORDERABLES Final Result DERMATOPATHOLOGY LABORATORY [facility] - Department of Dermatology [facility] [address] [place] [address] documented in this encounter Visit Diagnoses Not on filedocumented in this encounter
--- OUTSIDE RECORDS SUMMARY | 2025-01-19 07:37 | XMS_ITS | Clinical Summary ---
Author Organization [facility] Address [address] [place] [address] Care Team Providers Care Scrap Picker Name Role Phone Bernard Jackman MD Primary Care Provider + [phone] Allergies Active Allergy Reactions Criticality Noted Date [...] Comments Blood Pressure 125/76 06/02/2022 7:03 PM FUEL INJECTION SERVICER Pulse 68 06/02/2022 7:03 PM FUEL INJECTION SERVICER Temperature 36.4 C (97.5 F) 06/02/2022 7:03 PM FUEL INJECTION SERVICER Respiratory Rate 20 06/02/2022 7:03 PM FUEL INJECTION SERVICER Oxygen Saturation 96% 06/02/2022 7:03 PM FUEL INJECTION SERVICER Inhaled Oxygen Concentration - - Weight 108 kg (238 lb) 06/02/2022 7:03 PM FUEL INJECTION SERVICER Height 177.8 cm (5' 10) 06/02/2022 7:03 PM FUEL INJECTION SERVICER Body Mass Index 34.15 06/02/2022 7:03 PM FUEL INJECTION SERVICER Plan of Treatment Health Maintenance Due Date Last Done Comments Colorectal Cancer Screening Colonoscopy (10 Years) 1950 Hepatitis C 1968 DTaP, Tdap and Td Vaccines (1 - Tdap) 1969 Pneumococcal Vaccine: 50+ Years (1 of 1 - PCV) 2000 Annual Medicare Wellness Visit 11/10/2015 Zoster Vaccines (2 of 2) 07/06/2022 05/11/2022 COVID-19 Vaccine ( - season) 2024 02/09/2021, 06/22/2020, 05/23/2020 Influenza Adult (#1) 2025 01/13/2021, 01/14/2020, 01/17/2016, Additional history exists RSV Immunization or 60+ Years (1 - 1-dose 75+ series) 2025 Meningococcal B Vaccine Aged Out No l onger eligible based on patient's age to complete this topic Meningococcal Vaccine Aged Out No marilee alivia eligible based on patient's age to complete this topic RSV Immunizations Under 20 Months Aged Out No longer eligible based on patient's age to complete this topic Insurance MEDICARE [employer] Care Teams Scrap Picker Relationship Specialty Start Date End Date Bernard Jackman MD [address] [place] [address] PCP - General FAMILY PRACTICE 06/02/22
--- OUTSIDE RECORDS SUMMARY | 2025-01-19 07:37 | XMS_ITS | Clinical Summary ---
Author Organization [facility] Address [address] [place] [address] Care Team Providers Care Artist Relationship Manager Name Role Phone Unavailable Primary Care Provider Unavailabl e Allergies Active Allergy Reactions Criticality Noted Date Comments Lisinopril Cough,Unknown High 03/14/2015 cough severe cough Medications chlorhexidine (PERIDEX) 0.12 % solution Swish 15 mL for one minute twice daily. Spit out. 480 mL 12/24/2024 Active ibuprofen (ADVIL,MOTRIN) 600 mg tablet Take 1 (ONE) tablet (600 mg total) by mouth every 6 (six) hours. 30 tablet 12/24/2024 Active Airsupra 90-80 mcg/actuation HFA aerosol inhaler 12/16/2024 Active carvediloL (COREG) 12.5 mg tablet Take 12.5 mg by mouth in the morning and 12.5 mg in the evening. 03/14/2015 Active cyclobenzaprine (FLEXERIL) 10 mg tablet 10/14/2024 Active FLUoxetine (PROzac) 20 mg capsule 10/13/2011 Active rOPINIRole (REQUIP) 1 mg tablet Take 1 mg by mouth 1 (one) time each day. 10/13/2011 Active rosuvastatin (CRESTOR) 20 mg tablet 11/11/2024 Active amoxicillin (AMOXIL) 500 mg capsule Take 1 (ONE) capsule (500 mg total) by mouth every 8 (eight) hours for 7 days. 21 capsule 12/24/2024 01/01/20 25 Active Problems Problem Noted Date Diagnosed Date Bicuspid aortic valve 02/25/2024 Esophageal reflux 04/18/2023 Primary localized osteoarthrosis of shoulder reg ion 04/18/2023 PLMD (periodic limb movement disorder) Status post prostatectomy 08/01/2020 Malignant neoplasm of prostate 06/20/2020 Elevated PSA 05/24/2020 S/P ascending aortic aneurysm repair 07/18/2018 Hypertension 07/13/2016 History of aortic valve replacement 07/01/2015 Hyperlipidemia 10/10/2012 Overview (12/24/2024): Reviewed last lipid panel. For cardiac risk factors, LDL is at goal. --HDL low- can be raised by exercise, Niacin, red wine--no indication for medicine at this time --Trig- High, could be related to diet, weight, alcohol --No need to change meds at this point. Obstructive sleep apnea syndrome 10/10/2012 Aortic valve stenosis 04/18/2012 Encounters Date Type Department Care Team Description 12/24/2024 11:15 AM CDT Office Visit [facility] [address] [place] [address] Julianna Welsh DDS from Last 3 Months Social History Tobacco Use Types Packs/Day Years Used Date Smoking Tobacco: Never Assessed Sex and Gender Information Value Date Recorded Sex Assigned at Not on file Legal Sex Male 12:04 PM PDT Gender Identity Not on file Sexual Orientation Not on file Last Filed Vital Signs Vital Sign Reading Time Taken Comments Blood Pressure 123/61 12/24/2024 11:26 AM CDT Pulse 55 12/24/2024 11:26 AM CDT Temperature - - Respiratory Rate - - Oxygen Saturation - - Inhaled Oxygen Concentration - - Weight 99.8 kg (220 lb) 12/24/2024 11:26 AM CDT Height 177.8 cm (5' 10) 12/24/2024 11:26 AM CDT Body Mass Index 31.57 12/24/2024 11:26 AM CDT Plan of Treatment Health Maintenance Due Date Last Done Comments Dental Oral Exam 1950 Dental Prophylaxis 1950 Dental X-Ray: Bitewings 1950 Dental X-Ray: Full Mouth 1950 Dental X-Ray: Panoramic 1950 Procedures Procedure Name Priority Date/Time Associated Diagnosis Comments 14 GUIDED TISSUE REGENERATION, EDENTULOUS AREA - RESORBABLE BARRIER, PER SITE Routine 12/24/2024 11:15 AM CDT COLLECTION AND APPLICATION OF AUTOLOGOUS BLOOD CONCENTRATE PRODUCT Routine 12/24/2024 11:15 AM CDT 14 BONE REPLACEMENT GRAFT FOR RIDGE PRESERVATION - PER SITE - MAXILLARY Routine 12/24/2024 11:15 AM CDT OS CONSULT Routine 12/24/2024 11:15 AM CDT 14 EXTRACTION, ERUPTED TOOTH REQUIRING REMOVAL OF BONE AND/OR SECTIONING OF TOOTH Routine 12/24/2024 11:15 AM CDT from Last 3 Months Insurance [place] [place] [id number]
--- OUTSIDE RECORDS SUMMARY | 2025-01-19 07:37 | XMS_ITS | Encounter Summary ---
Author Organization [facility] Address [address] [place] [address] Care Team Providers Care Laundry Tub Maker Name Role Phone Bernard Jackman MD Primary Care Provid er Encounter Details Date Type Department Care Team (Late st Contact Info) Description 01/09/2022 Telephone [facility] Sleep Lab [address] [place], [place] [phone] Bonita Hurst, [facility] Social History Tobacco Use Types Packs/Day [...] on file Legal Sex Male 5:55 AM SEO COORDINATOR Gender Identity Male 02/18/2022 7:25 PM SEO COORDINATOR Sexual Orientation Not on file documented as of this encounter Plan of Treatment Not on file documented as of this encounter Visit Diagnoses Not on filedocumented in this encounter Additional Health Concerns Infection Onset Date Last Indicated Resolved Time COVID: Suspected 04/04/2023 04/04/2023 04/04/2023 6:43 PM SEO COORDINATOR COVID: Suspected 04/04/2023 04/04/2023 04/04/2023 10:36 PM SEO COORDINATOR documented as of this encounter Care Teams Laundry Tub Maker Relationship Specialty Start Date End Date Bernard Jackman MD [address] [place] [address] PCP - General 12/06/18 documented as of this encounter
--- OUTSIDE RECORDS SUMMARY | 2025-01-19 07:37 | XMS_ITS | Clinical Summary ---
Author Organization [facility] Address [address] [place] [address] Care Team Providers Care Etcher Hand Name Role Phone Bernard Jackman MD Primary [...] Dr. Terrell and KEDAR Cardenas contacted via [facility] to scheduled post op follow up appointment. PLMD (periodic limb movement disorder) Assessment & Plan (05/25/2024 8:47 AM SPEECH THERAPY TEACHER): Patient will continue with Requip 1 mg p.o. at bedtime. Assessment & Plan (04/25/2023 11:28 AM SPEECH THERAPY TEACHER): PLMS are under control with Requip 1 mg at bedtime. Assessment & Plan (04/19/2022 12:03 PM SPEECH THERAPY TEACHER): Patient will continue with Requip 1 mg p.o. at bedtime. Assessment & Plan (02/19/2022 12:50 PM SPEECH THERAPY TEACHER): Patient will continue with Requip 1 [...] 10/10/2012 Assessment & Plan (05/25/2024 8:47 AM SPEECH THERAPY TEACHER): Patient will continue with CPAP therapy at 6-20 cm water pressure. I have sent an order for the patient to receive the correct hose. The patient does have a Angelia machine a not a ResMed. Patient's DME is [facility]. Assessment & Plan (04/25/2023 11:28 AM SPEECH THERAPY TEACHER): The patient continues to benefit from the auto titrating CPAP unit with a range of 6-20 cm water pressure for ongoing symptoms of DELFINA. His DME supplier is [employer]. He will follow up here in 1 year. Assessment & Plan (04/19/2022 12:03 PM SPEECH THERAPY TEACHER): Patient will continue with CPAP therapy at 6-20 cm water pressure. Patient's DME is [employer]. Assessment & Plan (02/19/2022 12:51 PM SPEECH THERAPY TEACHER): Patient will continue with CPAP therapy [...] humidity and a full set of supplies. tidy provider Plus. The patient and I also [...] CPAP Irritable bowel syndrome mild Pulmonary embolism 01/2021 Heart disease 2012 Cancer (HCC) Nosebleed [...] on file Legal Sex Male 5:55 AM SPEECH THERAPY TEACHER Gender Identity Male 02/18/2022 7:25 PM SPEECH THERAPY TEACHER Sexual Orientation Not on file Obstetrics History Last Filed Vital Signs Vital Sign Reading Time Taken Comments Blood Pressure 114/64 05/25/2024 7:56 AM SPEECH THERAPY TEACHER Pulse 64 05/25/2024 7:56 AM SPEECH THERAPY TEACHER Temperature 36.9 C (98.4 F) 05/25/2024 7:56 AM SPEECH THERAPY TEACHER Respiratory Rate 18 05/25/2024 7:56 AM SPEECH THERAPY TEACHER Oxygen Saturation 92% 05/25/2024 7:56 AM SPEECH THERAPY TEACHER Inhaled Oxygen Concentration - - Weight 109.8 kg (242 lb) 05/26/2024 9:19 AM SPEECH THERAPY TEACHER Height 177.8 cm (5' 10) 05/26/2024 9:19 AM SPEECH THERAPY TEACHER Body Mass Index 34.72 05/26/2024 9:19 AM SPEECH THERAPY TEACHER Plan of Treatment Health Maintenance Due Date Last Done Comments DTaP/Tdap/Td Vaccine (1 - Tdap) 1961 Hepatitis B Screening 1968 Well Visit 65+ 04/01/2024 04/01/2023, 03/15, 03/30/2022, Additional history exists Covid-19 Vaccine (2024-2 6 season) 2024 02/08/2023, 02/09/2021, 06/22/2020, Additional history exists Influenza Vaccine (#1) 2024 , 02/08/2023, 02/02/2022, Additional history exists Depression Screening 03/31/2025 03/31/2024, 04/01/2023, 04/01/2023, Additional history exists Fall Risk Assessment 03/31/2025 03/31/2024, 04/01/2023, 03/30/2022, Additional history exists Colon Cancer Screening-Colonoscopy 11/28/2025 11/28/2020, 07/12/2015 Colon Cancer Screening-CT Colonography Discontinued 11/28/2020, 07/12/2015 Colon Cancer Screening-DNA Stool Discontinued 11/29/19 21, 07/12/2015 Colon Cancer Screening-FIT Discontinued 11/28/2020, Colon Cancer Screening-Sigmoidoscopy Discontinued 11/28/2020, 07/12/2015 Hepatitis C Screening Completed 05/18/2022 Zoster Vaccine Completed 08/06/2022, 05/11/2022 Pneumococcal vaccine 65+ Completed 10/05/2022 Prostate Cancer Screening-PSA Discontinued , 02/28/2024, 04/17/2023, Additional history exists Medical Devices Implanted Type Area It Support Specialist Device Identifier Shelf Expiration Date Model / Serial / Lot [employer] Progrip [id number] Self Fixate Flat Sheet Mesh Surgical Marilyn Pet Latex Free [id number] - [id number] Implanted:Qty : 1 on 08/28/2021 by Jose Galloway MD at [facility] N/A: Umbilical [employer] [id number] 05/15/2024 [id number] / / [id number] Explanted Type Area It Support Specialist Device Identifier Shelf Expiration Date Model / Serial / Lot [employer]onic [employer] Progrip [id number] Self Fixate Flat Sheet Mesh Surgical Marilyn Pet Latex Free [id number] - [id number] Explanted:Qty : 1 on 08/28/2021 at [facility] N/A: Umbilical [employer] [id number] 05/15/2024 [id number] / / [id number] Procedures Procedure Name Priority Date/Time Associated Diagnosis Comments PSA DIAGNOSTIC Routine 05/21/2024 1:13 PM SPEECH THERAPY TEACHER Prostate cancer (HCC) HEPATITIS C ANTIBODY Routine 05/18/2022 9:29 AM SPEECH THERAPY TEACHER Encounter for screening for other viral diseases COLONOSCOPY Routine 11/28/2020 3:45 PM CDT from Last 3 Months or Most Recently Relevant to Health Maintenance Results * PSA diagnostic (05/21/2024 1:13 PM SPEECH THERAPY TEACHER) PSA-Total <0.10 <=6.20 ng/mL Comment: Interpretive Data [...] data last revised 21. Testing performed by: [facility], [address] [place] [address]., [id number] Blood 05/21/2024 1:13 PM SPEECH THERAPY TEACHER 05/21/2024 2:21 PM SPEECH THERAPY TEACHER Jose Mayfield MD LAB BLOOD ORDERABLES Final Resul t Performing Organization Address [facility] Co de Phone Number [place] [phone] [facility] [place] [address] * Hepatitis C antibody (05/18/2022 9:29 AM SPEECH THERAPY TEACHER) Hep C Ab Nonreactive Nonreactive JHONNY Comment: [...] revised on 2019. Blood 05/18/2022 9:29 AM SPEECH THERAPY TEACHER 05/18/2022 12:45 PM SPEECH THERAPY TEACHER Bernard Jackman MD LAB MICROBIOLOGY - G ENERAL ORDERABLES Final Result Performing Organization Address [facility] de Phone Number [place] [phone] [facility] [place] [address] * Colonoscopy (07/12/2015) Anatomical Region Laterality Modality Other Historical Provider ENDOSCOPY PROCEDURES Rachel l Result from Last 3 Months or Most Recently Relevant to Health Maintenance Insurance [facility] [facility] MEDICARE HMO FOR LIFE [facility] MEDICARE HMO FOR LIFE Care Teams Etcher Hand Relationship Specialty Start Date End Date Bernard Jackman MD [address] [place] [address] PCP - General 12/06/18
--- OUTSIDE RECORDS SUMMARY | 2025-01-19 07:37 | XMS_ITS | Clinical Summary ---
Author Organization [facility] Address [address] [place] [address] Care Team Providers Care Water Treatment Plant Operator Name Role Phone Unavailable Primary Care Provider Unavailabl e Source Comments [facility],non-owned Affiliates and Associated Physician Practices is amultiple site organization consisting of ambulatory clinics and hospital sitesin [place], [place], [place] and [place]. This disclosure is being madepursuant to the Care Everywhere program and may not contain all information available regarding this patient. Last updated 18.[facility] [employer] Social History Tobacco Use Types Packs/Day Years [...] 2000 ZOSTER VACCINE (1 of 2) 2000 DEPRESSION SCREENING 04/15/2024 MEDICARE AWV CALENDAR YEAR 2024 COVID-19 VACCINE (1 - 2023-2 5 season) 2024 INFLUENZA VACCINE (#1) 2024 Respiratory Syncytial Virus (RSV) Vaccine Pt: [...] age to complete this topic Insurance MEDICARE Emergency Department/[facility] Address: [address] [place] [address] [facility] [employer] MEDICARE ADV HMO & PPO HUMAN SELF PAY NO INSURANCE Member Subscriber Plan / Payer (Ef fective for All Dates) Name:Isaias Wright Member ID:Not on file Relation to Subscriber:Not on file Name:ISAIAS WRIGHT Subscriber ID:Not on file (Home) Address: [address] [place] [id number] Payer ID:Not on file Group ID:Not on file Type:Self Pay Address: [place], [place]
--- OUTSIDE RECORDS SUMMARY | 2025-01-19 07:37 | XMS_ITS ---
Author Organization [facility] Address [address] [place] [address] Care Team Providers Care Boatwright Name Role Phone Bernard Jackman MD Primary [...] Dr. Terrell and KEDAR Cardenas contacted via Bebo to scheduled post op follow up appointment. PLMD (periodic limb movement disorder) Assessment & Plan (05/25/2024 8:47 AM TIPPLE WORKER): Patient will continue with Requip 1 mg p.o. at bedtime. Assessment & Plan (04/25/2023 11:28 AM TIPPLE WORKER): PLMS are under control with Requip 1 mg at bedtime. Assessment & Plan (04/19/2022 12:03 PM TIPPLE WORKER): Patient will continue with Requip 1 mg p.o. at bedtime. Assessment & Plan (02/19/2022 12:50 PM TIPPLE WORKER): Patient will continue with Requip 1 mg [...] 10/10/2012 Assessment & Plan (05/25/2024 8:47 AM TIPPLE WORKER): Patient will continue with CPAP therapy at 6-20 cm water pressure. I have sent an order for the patient to receive the correct hose. The patient does have a Angelia machine a not a ResMed. Patient's DME is [employer]. Assessment & Plan (04/25/2023 11:28 AM TIPPLE WORKER): The patient continues to benefit from the auto titrating CPAP unit with a range of 6-20 cm water pressure for ongoing symptoms of DELFINA. His DME supplier is [employer]. He will follow up here in 1 year. Assessment & Plan (04/19/2022 12:03 PM TIPPLE WORKER): Patient will continue with CPAP therapy at 6-20 cm water pressure. Patient's DME is [employer]. Assessment & Plan (02/19/2022 12:51 PM TIPPLE WORKER): Patient will continue with CPAP therapy at [...] receive an order for new supplies. The [employer] company is [employer]. The patient is benefitting from CPAP therapy. [...]
--- OUTSIDE RECORDS SUMMARY | 2025-01-19 07:37 | XMS_ITS | Encounter Summary ---
Author Organization [facility] Address [address] [place] [address] Care Team Providers Care Lobby Attendant Name Role Phone Unavailable Primary Care Provider Unavailabl e Encounter Details Date Type Department Care Team (Late st Contact Info) Description 06/20/2023 Lab Requisition [facility] - DermPath Lab [address] [place] [id number] Ayden Bright MD [facility] DERMATOLOGY [address] [place] [phone] Neoplasm of uncertain behavior of skin [...] Comments DERMATOPATHOLOGY Routine 06/20/2023 12:0 0 AM PAPER REEL OPERATOR Neoplasm of uncertain behavior of skin documented in this encounter Results * DERMATOPATHOLOGY (06/20/2023 12:00 AM PAPER REEL OPERATOR) Case Report Dermatopathology Report Case: [id number] Authorizing Provider: Ayden Bright MD Collected: 06/20/2023 12:00 AM Ordering Location: [facility] Physician [facility] - Received: 06/21/2023 12:14 PM DermPath [...] characteristic determined by the Dermatopathology Laboratory at [facility], directed by Dr. Kike Oswald. These tests need not be, and therefore are not, approved by the [place] Food and Drug Administration. The tests are used for clinical purposes. Billing Codes Specimen Charges Stain Charges 86678 1 3:41 PM CDT DERMATOPATHOLOGY LABORATORY Embedded Images 3:41 PM T DERMATOPATHOLOGY LABORATORY Pathology/Cytolog y TISSUE SPECIMEN FROM SKIN / Unknown 06/20/2023 06/21/2023 12:14 PM PAPER REEL OPERATOR Ayden Bright MD LAB - PATHOLOGY/CYTOLOGY ORDLaila AVENDAÑO Final Result DERMATOPATHOLOGY LABORATORY [facility] - Department of Dermatology [facility] Medicine [address] [place] [address], [address] [phone] documented in this encounter Visit Diagnoses Diagnosis Neoplasm of uncertain behavior of skin documented in this encounter
--- OUTSIDE RECORDS SUMMARY | 2025-01-19 07:37 | XMS_ITS | Encounter Summary ---
Author Organization [facility] Facility Care Team Providers Care Movie Operator Name Role Phone Miscellaneous, Not In File Primary Care Provider Unavailable Unknown, Notinfile Primary Care Provider Unavail Bernard Choi MD Primary Care Provid er Unknown, Notinfile Primary Care Provider Unavail Bernard Choi MD Primary Care Provid er Bernard Jackman MD Primary Care Provid er Edyta Saleh LPN Unavailable [phone] Encounter Details Date Type Department Care Team (Latest Contact Info) Description 02/07/2017 Orders Only [facility] CLINCONV ProviderRyan MD [address] [place] [address] Social History Tobacco Use Types Packs/Day Years Used Date Smoking Tobacco: Never Sex and Gender Information Value Date Recorded Sex Assigned at Not on file Legal Sex Male 5:55 AM RESEARCH HOME ECONOMIST Gender Identity Male 02/18/2022 7:25 PM RESEARCH HOME ECONOMIST Sexual Orientation Not on file documented as [...] COVID: Suspected 03/07/2021 03/07/2021 03/07/2021 9:43 AM RESEARCH HOME ECONOMIST COVID: Suspected 03/07/2021 03/07/2021 03/07/2021 8:41 PM RESEARCH HOME ECONOMIST COVID: Suspected 04/04/2023 04/04/2023 04/04/2023 6:43 PM RESEARCH HOME ECONOMIST COVID: Suspected 04/04/2023 04/04/2023 04/04/2023 10:36 PM RESEARCH HOME ECONOMIST documented as of this encounter Care Teams Movie Operator Relationship Specialty Start Date End Date Miscellaneous, Not In File PCP - General 07/13/16 Unknown, Notinfile PCP - General 07/05/17 07/18/17 Bernard Jackman MD [address] [place], [place] [id number] PCP - General 07/19/17 07/19/17 Unknown, Notinfile PCP - General 07/20/17 07/23/17 Bernard Jackman MD [address] [place], [place] [address] PCP - General 07/24/17 12/05/18 Bernard Jackman MD [address] [place], [place] [address] PCP - General 12/06/18 Edyta Saleh, BIT AND SHANK DEPARTMENT SUPERVISOR [address] [place] [address] Typing Checker 07/20/20 07/20/20 documented as of this encounter
--- OUTSIDE RECORDS SUMMARY | 2025-01-19 07:37 | XMS_ITS | Encounter Summary ---
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
--- OUTSIDE RECORDS SUMMARY | 2025-01-19 07:38 | XMS_ITS | Clinical Summary ---
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 Gender Identity Not on file Sexual Orientation Not on file Plan of Treatment Health Maintenance Due Date Last Done Comments Hepatitis C Virus (HCV) Screening 1950 TdaP Immunization 1950 Cologuard 11/10/1995 Colonoscopy 11/10/1995 Colorectal Cancer Screening 11/10/1995 Immunochemical Fecal Occult Blood 11/10/1995 Pneumococcal Immunization (50+ years) (1 of 1 - PCV) 2000 Zoster Immunization (1 of 2) 2000 Influenza Immunization (#1) 12/14/202401/14, 01/13/2021, 01/14/2020, Additional history exists SARS-COV-2 Immunization ( season) 2024 02/09/2021, 06/22/2020, 05/23/2020 Respiratory Syncytial Virus (RSV) Immunization (Adult) (1 - 1-dose 75+ series) 2025 Hepatitis B Immunization Aged Out No longer eligible based on patient's age to complete this topic Human Papillomavirus (HPV) Immunization Aged Out No longer eligible based on patient's age to complete this topic Meningococcal Immunization (ACWY) Aged Out No longer eligible based on patient's age to complete this topic Rotavirus Immunization Aged Out No lo nger eligible based on patient's age to complete this topic
--- OUTSIDE RECORDS SUMMARY | 2025-01-19 07:38 | XMS_ITS | Encounter Summary ---
Author Organization [facility] Address [address] [facility] [place] [address] Care Team Providers Care Compliance Aide Name Role Phone Unavailable Primary Care Provider Unavailabl e Encounter Details Date Type Department Care Team (Late st Contact Info) Description 12/20/2022 Lab Requisition [facility] - DermPath Lab [address] [place] [address] Shyla Uribe PA-C [address] [place] [address] Neoplasm of uncertain behavior of [...] AM CDT) Case Report Dermatopathology Report Case: [id number] Authorizing Provider: Shyla Uribe PA-C Collected: 12/20/2022 12:00 AM Ordering Location: [facility] DermPath Lab Received: 12/24/2022 08:01 AM Pathologist: [...] 7x5x2 mm. Jar 0. 3 4:12 PM [facility] DERMATOPATHOLOGY LABORATORY Microscopic Description Specimen A. [...] larger lesion, these findings may not be inside sales account representative of the entire lesion. Clinicopathologic correlation [...] characteristic determined by the Dermatopathology Laboratory at [facility], directed by Dr. Kike Oswald. These tests need not be, and therefore are not, approved by the [place] Food and Drug Administration. The tests are used for clinical purposes. Billing Codes Specimen Charges Stain Charges 56530 71431 1 1 61516 1 3 4:12 PM CDT DERMATOPATHOLOGY LABORATORY Embedded Images 4:12 PM CDT DERMATOPATHOLOGY LABORATORY Pathology/Cytology TISSUE SPECIMEN FROM SKIN / Unknown 12/20/2022 12/24/2022 8:01 AM CDT Miscellaneous samples (specimen) TISSUE SPECIMEN FROM SKIN / Unknown 12/20/2022 12/24/2022 8:01 AM CDT Shyla Uribe PA-C LAB - PATHOLOGY/CYTOLOGY ORDE JAROCHO Final Result DERMATOPATHOLOGY LABORATORY [facility] - Department of Dermatology [facility] [address] [place] [address], [address] [phone] documented in this encounter Visit Diagnoses Diagnosis Neoplasm of uncertain behavior of skin documented in this encounter
--- OUTSIDE RECORDS SUMMARY | 2025-01-19 07:38 | XMS_ITS | Encounter Summary ---
Author Organization [facility] Facility Care Team Providers Care Refractory Specialist Name Role Phone Miscellaneous, Not In File Primary Care Provider Unavailable Unknown, Notinfile Primary Care Provider Unavail Bernard Choi MD Primary Care Provid er Unknown, Notinfile Primary Care Provider Unavail Bernard Choi MD Primary Care Provid er Bernard Jackman MD Primary Care Provid er Edyta Saleh LPN Unavailable [phone] Encounter Details Date Type Department Care Team (Latest Contact Info) Description 07/12/2015 Orders Only [facility] CLINCONV ProviderRyan MD [address] [place] [address] Social History Tobacco Use Types Packs/Day Years Used Date Smoking Tobacco: Never Sex and Gender Information Value Date Recorded Sex Assigned at Not on file 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 Gender Identity Male 02/18/2022 7:25 PM TELETYPESETTER MONITOR Sexual Orientation Not on file documented as [...] COVID: Suspected 03/07/2021 03/07/2021 03/07/2021 9:43 AM TELETYPESETTER MONITOR COVID: Suspected 03/07/2021 03/07/2021 03/07/2021 8:41 PM TELETYPESETTER MONITOR COVID: Suspected 04/04/2023 04/04/2023 04/04/2023 6:43 PM TELETYPESETTER MONITOR COVID: Suspected 04/04/2023 04/04/2023 04/04/2023 10:36 PM TELETYPESETTER MONITOR documented as of this encounter Care Teams Refractory Specialist Relationship Specialty Start Date End Date Miscellaneous, Not In File PCP - General 07/13/16 Unknown, Notinfile PCP - General 07/05/17 07/18/17 Bernard Jackman MD [address] [place] [address] PCP - General 07/19/17 07/19/17 Unknown, Notinfile PCP - General 07/20/17 07/23/17 Bernard Jackman MD [address] [place] [address] PCP - General 07/24/17 12/05/18 Bernard Jackman MD [address] [place] [address] PCP - General 12/06/18 Edyta Saleh LPN [address] [place] [address] Metal Fitter 07/20/20 07/20/20 documented as of this encounter
--- OUTSIDE RECORDS SUMMARY | 2025-01-19 07:38 | XMS_ITS | Patient Health Record ---
Author Organization [facility] Address [address] [facility] [address] [place] [address] Support Name Relationship Address Phone Isaias Wright Guarantor Unknown [phone] Allergies No Known Allergies Reason For Referral No Information Plan Of Treatment No Information Insurance Providers Payer Name Payer Address Payer Phone Subscriber Number Group Number Insured Name Patient Relationship to Insured Coverage Start Date Coverage End Date DO NOT USE [id number] Isaias Wright Self - patient is the insured 4 [facility] [address] [place] [address] [id number] Isaias Wright Self - patient is the insured 4 Medical (General) History Surgical History Surgery Date(Month/Year) Appendectomy, Date of Procedure: 1958; 2013-11-05 Hernia, Date of Procedure: Abdominal Hernia 2013-11-05
== END 2025-01-19 07:33 | disposition home or self-care (01) ==
LOC: ANHAUDIO 07:32
PROVIDERS: PCP Internal Medicine; Visit Provider Internal Medicine
DX: H90.3 Sensorineural hearing loss, bilateral (principal)
CPT/HCPCS: 92557; 92567